=== PATIENT | female | born 1995 | race Caucasian/White ===

== ENCOUNTER 2023-12-17 14:54 | Observation (INO) | payer OTHER, SELFPAY ==
[2023-12-17] VITALS (11 sets, daily range): BP systolic 115–139; BP diastolic 65–90; PULSE 64–76; BMI 35.9
[2023-12-17 12:30] LABS: Appearance Urine Clear (Clear); Bilirubin Urine Negative (Negative); Blood Urine Negative (Negative); Color Urine Yellow (Yellow); Glucose Urine UA Negative (Negative); Ketones Urine 3+ mg/dL (Negative); Leukocyte Esterase Ur Negative LEU/UL (Negative); Nitrate Urine Negative (Negative); Protein Urine Negative (Negative); Specific Grav Ur 1.017 (1.001-1.035); pH Urine 6.5 (5.0-9.0)
[2023-12-17 12:40] LABS: Add Urine Microscopic? NO
[2023-12-17] MEDS: DEXTROSE 5%/LACTATED RINGERS 1,000 ML 999 ML (14:08)
[2023-12-17] MEDS: ONDANSETRON INJ 4 MG/2 ML VIAL IV PUSH (14:08)
--- NOTE | 2023-12-17 14:57 | LDADM ---
This patient, Kailey Webster, was admitted to Labor/Delivery/Recovery 105 on 12/17/23 at 11:15. Plans for labor, pain management and were discussed with patient. Patient/family oriented to hospital policies and general routines including ID bracelet, bed and alarms, visiting hours, pain management, procedures, bathroom and other care routines, personal items, smoking policy, room service/diet and guest tray routines, infant security routines, and visiting hours. Patient/Family are encouraged to report perceived risks to care and to ask questions if they do not understand what they are told or what they should do. See OBIX for further documentation.
--- NOTE | 2023-12-20 15:22 | PM.OBTRLD ---
OB - Triage/Final Diagnosis Visit Information Date of evaluation: 12/17/23 Reason for evaluation: threatened labor Comments/Additional reasons for admission: I have assessed the risk for this patient, Kailey Webster, and determined that she would benefit from observation care. Evaluation Laboratory results: Laboratory Tests 12/17/23 12:18 Urine Color Yellow Urine Appearance Clear Urine pH 6.5 Ur Specific [place] 1.017 Urine Protein Negative Urine Glucose (UA) Negative Urine Ketones 3+ H Ur Blood (Man) Negative Urine Nitrate Negative Urine Bilirubin Negative Urine Urobilinogen 1.0 Leukocyte Esterase Rfl Negative
== END 2023-12-17 15:30 | disposition home or self-care (01) ==
PROVIDERS: Advanced Practice Midwife; Admitting Provider Obstetrics & Gynecology; Visit Provider Obstetrics & Gynecology
DX: O47.9 False labor, unspecified (principal); Z3A.00 Weeks of gestation of pregnancy not specified
CPT/HCPCS: 81003; 96361; 96374; G0378; G0379; J2405; J7121

== ENCOUNTER 2023-12-20 10:49 | Inpatient (IN) | payer OTHER, SELFPAY ==
[2023-12-20] VITALS (122 sets, daily range): BP systolic 97–146; BP diastolic 38–97; PULSE 58–285; TEMP 36.6–38; O2SAT 76–100; BMI 35.9
--- NOTE | 2023-12-20 12:34 | P.HPUP_ITS ---
History and Physical Update Update Date/Time: 12/20/23 12:34 28-year-old prime at at 37 weeks gestation with spontaneous rupture membranes. Forebag was ruptured. 4 cm/0/80%. Reassuring status, observation History and Physical has been reviewed, including an updated exam of the pa tient. There are NO changes in the patient's condition. Risks, benefits, and alternatives have been discussed and questions answered. Patient agrees to proceed with procedure.
[2023-12-20 12:43] LABS: Basophils Percent Auto 0.2 % (0.2-1.2); Eosinophils Absolute Auto 0.1 K/mm3 (0-0.3); Eosinophils Percent Auto 1.2 % (0-4.4); Hematocrit 37.5 % (37.0-47.0); Hemoglobin 11.9 g/dL (12.0-15.0); Immature Granulocyte Absolute 0.04 K/mm3 (0.00-0.031); Immature Granulocyte Percent A 0.4 % (0-0.5); Lymphocytes Absolute Auto 1.55 K/mm3 (0.9-3.2); Lymphocytes Percent Auto 17.1 % (18.3-44.2); Mean Corpuscular HGB Conc 31.7 g/dl (32-36); Mean Corpuscular Hemoglobin 27.3 pg (26-34); Monocytes Absolute Auto 0.5 K/mm3 (0.1-0.6); Monocytes Percent Auto 5.1 % (2.6-8.5); Neutrophils Absolute Auto 6.9 K/mm3 (1.3-6.7); Platelet Count Result 209 k/mm3 (150-375); Red Blood Count 4.36 M/mm3 (4.2-5.4); Red Cell Distribution Width 12.4 % (11.5-14.5); White Blood Count 9.1 K/mm3 (4.5-10.0)
[2023-12-20] MEDS: OXYTOCIN 30 UNITS/NS 500 ML 30 UNITS/500 ML BAG 6 UNITS IV CONT (13:09)
[2023-12-20] MEDS: LACTATED RINGERS 1,000 ML 125 ML IV CONT ×3 (13:09→20:26)
[2023-12-20] MEDS: HYDROCORTISONE 1% 30 GM CREAM 1 APPLIC TOPICAL (13:14)
[2023-12-20] MEDS: ceFAZolin 2 GM/D5W 50 ML 2 GM/50 ML BAG IVPB (13:20)
[2023-12-20 16:04] LABS: Rapid Plasma Reagin Non-Reactive (NonReactive)
--- NOTE | 2023-12-20 16:56 | WPDANESEPP ---
Anes - Eval Pre Procedure Procedure: labor epidural Date/Time: 12/20/23 16:56 Pre Op Diagnosis: Leaking Patient Data Age: 28 Gender: F Height: 1.63 m Weight: 95 kg Last Vital Signs Pulse 58 L 12/20/23 16:45 BP 119/56 L 12/20/23 16:45 O2 Del Method Room Air 12/20/23 13:29 Allergies Allergy/AdvReac Type Severity Reaction Status Date / Time amoxicillin Allergy Mild Rash Verified 12/17/23 13:56 latex Allergy Rash Verified 12/17/23 13:56 Penicillins Allergy Hives Verified 12/20/23 11:39 other Allergy Rash Uncoded 12/20/23 12:08 Home Medications Medication Instructions Recorded Confirmed Type omeprazole 20 mg capsule,delayed 20 mg PO HS 12/20/23 12/20/23 History release vit no.95-ferrous 1 tablet PO DAILY 12/20/23 12/20/23 History fumarate 28 mg-folic acid 800 mcg tablet () sertraline 50 mg tablet (Zoloft) 50 mg PO HS 12/20/23 12/20/23 History Laboratory Tests 12/20/23 12:35 WBC 9.1 K/mm3 (4.5-10.0) RBC 4.36 M/mm3 (4.2-5.4) Hgb 11.9 L g/dL (12.0-15.0) Hct 37.5 % (37.0-47.0) MCV 86.0 fl (80-100) MCH 27.3 pg (26-34) MCHC 31.7 L g/dl (32-36) RDW 12.4 % (11.5-14.5) Plt Count 209 k/mm3 (150-375) MPV 13.0 H fl (7.4-10.4) Immature Gran % (Auto) 0.4 % (0-0.5) Neut % (Auto) 76.0 H % (45.5-73.1) Lymph % (Auto) 17.1 L % (18.3-44.2) [place] % (Auto) 5.1 % (2.6-8.5) Eos % (Auto) 1.2 % (0-4.4) Baso % (Auto) 0.2 % (0.2-1.2) Lymph # (Auto) 1.55 K/mm3 (0.9-3.2) [place] # (Auto) 0.5 K/mm3 (0.1-0.6) Eos # (Auto) 0.1 K/mm3 (0-0.3) Baso # (Auto) 0.0 K/mm3 (0.0-0.1) Abs Immat Gran (auto) 0.04 H K/mm3 (0.00-0.031) Absolute Neuts (auto) 6.9 H K/mm3 (1.3-6.7) Absolute Nucleated RBC 0.000 K/mm3 (0.0-0.012) Nucleated RBC % 0.0 % (0.0-0.2) RPR Non-reactive (NonReactive) Blood Type A Positive Antibody Screen Negative Patient hx anesthesia problems: none Family hx anesthesia problems: none Results Review: All pre-operative results and documents have been reviewed as part of the pre-operative evaluation. [facility] Past Medical History Medical History (Updated 12/20/23 @ 16:57 by Carol Ann Landers CRNA) GERD (gastroesophageal reflux disease) Obese PCOS (polycystic ovarian syndrome) Surgical History Surgical History H/O gastric sleeve Social History Social History Smoking status: Never smoker Substance use: never Do You Feel Safe in your Home?: No Lack of Transportation: No Lack of Food: Never True Current Housing: I Have Housing Concerned About Future Housing: No Difficulty Paying Gas/Electric Bills: No Difficulty Paying for Meds: No Currently Unemployed: No Education: Trade/Vocational Certificate Difficulty w/ Childcare or Family Care: No Spiritual care concerns: No Exam Day of Procedure 12/20/23 16:56 Patient weight: obese Heart: regular rate and rhythm Lungs: normal air movement Airway: Mallampati scale Neurological: alert and oriented
[2023-12-20] MEDS: ceFAZolin 1 GM/NS 50 ML 1 GM/50 ML BAG IVPB (21:34)
[2023-12-20] MEDS: TRANEXAMIC ACID 1,000MG/ISO100 1,000 MG/100 ML BAG 200 MG IVPB (23:45)
--- NOTE | 2023-12-20 23:45 | PM.OBPRVD ---
OB - Vaginal Delivery Note Procedure Delivery date: 12/20/23 Delivery augmentation: Pitocin Delivery monitor: External FHT and External Uterine Route of delivery: Episiotomy description: None Laceration Description: Periurethral and Perineal - 2nd Degree Delivery repair: vicryl Quantitative Blood Loss (ml): 400 Anesthesia type: Epidural Narrative: SROM at 37 wk Baby Date of : 12/20/23 Time of : 23:18 Weeks of gestation at delivery: 37 score one minute: 8 score five minutes: 9
[2023-12-20] MEDS: OXYTOCIN 30 UNITS/NS 500 ML 30 UNITS/500 ML BAG 125 UNITS IV CONT (23:51)
[2023-12-20] MEDS: miSOPROStol 200 MCG TABLET 1000 MCG RECTAL (23:51)
[2023-12-21] VITALS (16 sets, daily range): BP systolic 106–135; BP diastolic 47–98; PULSE 68–221; RESP 16–18; TEMP 36.8–37.5; O2SAT 98–100
--- NOTE | 2023-12-21 00:08 | P.PNOB_ITS ---
OB - PN: Subj Subjective Date/time seen: 12/21/23 00:08 Narrative: Return to the room for [id number] blood flow. This from the uterus. Alejandrina was inserted. 120 cc were placed in this flatus and balloon of normal saline and was placed under 80 mmHg suction. Minimal to moderate blood flow through the Mitzi. There was concern for continued low of blood flow. OB - PN: Obj Data Labs 12/20/23 12:35 Labs: Laboratory Results - last 24 hr 12/20/23 12:35 WBC 9.1 RBC 4.36 Hgb 11.9 L Hct 37.5 MCV 86.0 MCH 27.3 MCHC 31.7 L RDW 12.4 Plt Count 209 MPV 13.0 H Immature Gran % (Auto) 0.4 Neut % (Auto) 76.0 H Lymph % (Auto) 17.1 L [place] % (Auto) 5.1 Eos % (Auto) 1.2 Baso % (Auto) 0.2 Lymph # (Auto) 1.55 [place] # (Auto) 0.5 Eos # (Auto) 0.1 Baso # (Auto) 0.0 Abs Immat Gran (auto) 0.04 H Absolute Neuts (auto) 6.9 H Absolute Nucleated RBC 0.000 Nucleated RBC % 0.0 RPR Non-reactive Blood Type A Positive Antibody Screen Negative OB - PN A/P Time Spent With Patient Time: Total time spent is greater than 50% in coordination of care (as documented) at patient's floor/unit and/or counseling patient:
[2023-12-21] MEDS: IBUPROFEN 600 MG TABLET PO ×3 (02:15→16:45)
[2023-12-21] MEDS: WITCH HAZEL 40 PADS 1 PAD TOPICAL (03:01)
[2023-12-21] MEDS: BENZOCAINE 20% AER SPR (*SP) 56 GM CAN 1 SPRAY TOPICAL (03:01)
[2023-12-21 05:49] LABS: Hematocrit 26.6 % (37.0-47.0); Hemoglobin 8.4 g/dL (12.0-15.0)
--- NOTE | 2023-12-21 07:19 | PM.OBPNVD ---
OB - PN: Subj Subjective Date/time seen: 12/21/23 07:19 Interval history: pp day 1 doing well SAMINA in place OB - PN: Obj Data Labs 12/21/23 05:38 Labs: Laboratory Results - last 24 hr 12/20/23 12/21/23 12:35 05:38 WBC 9.1 RBC 4.36 Hgb 11.9 L 8.4 L D Hct 37.5 26.6 L MCV 86.0 MCH 27.3 MCHC 31.7 L RDW 12.4 Plt Count 209 MPV 13.0 H Immature Gran % (Auto) 0.4 Neut % (Auto) 76.0 H Lymph % (Auto) 17.1 L [place] % (Auto) 5.1 Eos % (Auto) 1.2 Baso % (Auto) 0.2 Lymph # (Auto) 1.55 [place] # (Auto) 0.5 Eos # (Auto) 0.1 Baso # (Auto) 0.0 Abs Immat Gran (auto) 0.04 H Absolute Neuts (auto) 6.9 H Absolute Nucleated RBC 0.000 Nucleated RBC % 0.0 RPR Non-reactive Blood Type A Positive Antibody Screen Negative OB - PN A/P Plan day: 1 Comments: plan iron infusion SAMINA to be removed Time Spent With Patient Time: Total time spent is greater than 50% in coordination of care (as documented) at patient's floor/unit and/or counseling patient: Review of Systems Review of Systems: All systems reviewed & are unremarkable except as noted in HPI and below Exam Const: General: cooperative and healthy appearing Resp: Effort & Inspection: normal respiratory effort Cardio: Rate: regular rate : Other: SAMINA cuff deflated Skin: General skin exam: normal color Extrem: Right lower extremity: normal to inspection Left lower extremity: normal to inspection
--- NOTE | 2023-12-21 07:42 | PM.OBPNVD ---
OB - PN: Subj Subjective Date/time seen: 12/21/23 07:42 Interval history: SAMINA removed w/o difficulty fundus firm, minimal bleeding OB - PN: Obj Data Labs 12/21/23 05:38 Labs: Laboratory Results - last 24 hr 12/20/23 12/21/23 12:35 05:38 WBC 9.1 RBC 4.36 Hgb 11.9 L 8.4 L D Hct 37.5 26.6 L MCV 86.0 MCH 27.3 MCHC 31.7 L RDW 12.4 Plt Count 209 MPV 13.0 H Immature Gran % (Auto) 0.4 Neut % (Auto) 76.0 H Lymph % (Auto) 17.1 L [place] % (Auto) 5.1 Eos % (Auto) 1.2 Baso % (Auto) 0.2 Lymph # (Auto) 1.55 [place] # (Auto) 0.5 Eos # (Auto) 0.1 Baso # (Auto) 0.0 Abs Immat Gran (auto) 0.04 H Absolute Neuts (auto) 6.9 H Absolute Nucleated RBC 0.000 Nucleated RBC % 0.0 RPR Non-reactive Blood Type A Positive Antibody Screen Negative OB - PN A/P Time Spent With Patient Time: Total time spent is greater than 50% in coordination of care (as documented) at patient's floor/unit and/or counseling patient:
[2023-12-21] MEDS: IRON SUCROSE COMPLEX 400 MG in SODIUM CHLORIDE 0.9% IV 250 ML 108 MG IVPB (08:07)
[2023-12-21] MEDS: DOCUSATE SODIUM 100 MG CAPSULE PO ×2 (08:08→16:45)
[2023-12-21] MEDS: POLYSACCHARIDE IRON COMPLEX 150 MG CAPSULE PO ×2 (08:08→16:45)
[2023-12-21] MEDS: MULTIVIT/MIN/PREN/FOL AC/IRON TABLET 1 TAB PO (08:08)
--- NOTE | 2023-12-21 08:48 | WPDANLDPN2 ---
Anes-Prog Note L&D Date/Time: 12/21/23 08:48 Comfortable throughout: labor and delivery Neuraxial method: epidural Epidural/Spinal procedure site: clean & non-tender Neuro status: Neuro function grossly intact. Cardiovascular status: normal Respiratory status: normal Airway patency: baseline Mental status: baseline Post-Op hydration status: normal Vital Signs: Last Vital Signs Temp 37.5 C 12/21/23 03:57 Pulse 85 12/21/23 03:57 Resp 18 12/21/23 03:57 BP 131/68 12/21/23 03:57 Pulse Ox 100 12/21/23 03:57 O2 Del Method Room Air 12/21/23 03:57 Pain score (VAS): 2/10 I/O: Intake & Output 12/20/23 12/21/23 12/21/23 23:59 07:59 15:59 Intake Total 960.4 1700 Output Total 400 445 Balance 560.4 1255 Post-procedural complaints: none Patient feedback: Patient satisfied with anesthetic care.
[2023-12-21] MEDS: ACETAMINOPHEN 325 MG TABLET 650 MG PO (13:06)
--- NOTE | 2023-12-21 13:38 | PC.NURSE ---
[id number] Introductions were made to father of baby since mother is in the restroom. Demonstrated to father of baby how to stimulate, change a diaper, and hold upright to prepare infant for mother to breastfeed as it has been 3 hours since the start of the last breastfeed. Resources provided for inpatient and outpatient services with the feeding sheet, mom/baby guide and name written on the communication board. Father voiced understanding of information, demonstrated understanding and will call when infant is showing feeding cues. Discussed responsive feeding using the signs of hunger hand out. [id number] Upon entering the room introductions made again and mother has latched to her left breast holding a nipple shield in place. Reviewed good handwashing, cleaning the nipple shield and the appropriate way to apply and use as a tool. Discussed with mom the nipple shield precautions, possible complications associated with the risks and benefits, practicing appropriate placement with a nipple shield, then without and how to protect the milk supply and production. Nipple shield was removed and infant latched to the left breast optimally. Reviewed positioning and ear, shoulder, hip alignment, supporting the breast to facilitate a deep latch, asymmetrical latch (off-center), leading with the chin with a big, open, wide gape and body close to mother. Education given to the mother of how to visualize the suckling (with good rocking jaw motion), swallows (dropping of the lower jaw) and how to listen for drinking at the breast (the ka sound) and infant demonstrated frequent intermittent swallows that are appropriate at this age after . was able to maintain latch without pain to mother protecting the nipple with optimal positioning, latching without the nipple shield. Reviewed comfort measures of healing with a warm, wet washcloth to rinse breast, then leave open to air-dry, good handwashing when or touching the breast/nipples to prevent infection. Mother voiced understanding of skin to skin, stimulating with massage touch, responsive feedings, hand expressed colostrum, talking to infant to encourage if it has been 2 -2.5 hours since the start of the last , to call if does not latch, or if there is discomfort with . Resources used for education were facilitated with the visual educational handouts/ tool/mom and baby guide. Inpatient/outpatient resources provided with feeding sheet, name written on the communication board, and the mom/baby guide. Parents voiced understanding of information, demonstrated learning and will call if there is a request for assistance. Reported to the Primary RN.
--- NOTE | 2023-12-21 16:46 | PC.NURSE ---
[id number] Consulted with patient to assess needs related to . Encouraged understanding the benefits of skin to skin, responding to feeding cues, frequencies of feeding 8-12 times in 24 hours (approximately 2-3 hours) so, encouraged waking to encourage . Reviewed positioning and alignment, supporting breast, off-centered (asymmetrical latch) and leading with the chin with big, open, wide gape. Infant latched optimally to the right breast in football/cross cradle position and doesn't maintain. EBM is copious on the right breast. Infant latched effectively to the left breast using cross cradle. Infant demonstrated swallowing with good rocking jaw motion and dropping of the lower jaw with the ka sound. The infant was able to maintain latch without discomfort to mother. Nipple care reviewed with optimal latch with the sandwich or teacup hold, good positioning and using clean hands when touching her breast. Resources used to facilitate learning were used from the visual handouts/ tool/mom and baby guide. Mother voiced understanding of the education shared, to call for assistance if the infant does not latch or if there is discomfort with . Reported to the Primary RN.
[2023-12-21] MEDS: PANTOPRAZOLE 40 MG TABLET PO (20:39)
[2023-12-21] MEDS: SERTRALINE HCL 50 MG TABLET PO (20:39)
[2023-12-22 00:30] VITALS: BP 122/76; PULSE 88; RESP 16; TEMP 36.8
[2023-12-22 07:35] VITALS: BP 119/84; PULSE 72; RESP 16; TEMP 36.9; O2SAT 100
[2023-12-22 08:00] VITALS: PULSE 72; RESP 16; O2SAT 100
[2023-12-22] MEDS: POLYSACCHARIDE IRON COMPLEX 150 MG CAPSULE PO ×2 (08:09→16:44)
[2023-12-22] MEDS: MULTIVIT/MIN/PREN/FOL AC/IRON TABLET 1 TAB PO (08:09)
[2023-12-22] MEDS: DOCUSATE SODIUM 100 MG CAPSULE PO ×2 (08:10→16:44)
[2023-12-22] MEDS: TETANUS,DIPHTHERIA,AC PERTUSSIS ADULT (0.5 ML) BOOSTRIX IM (08:43)
--- NOTE | 2023-12-22 09:37 | PM.OBPNVD ---
OB - PN: Subj Subjective Date/time seen: 12/22/23 09:37 Interval history: SAMINA removed w/o difficulty fundus firm, minimal bleeding Patient comments: no complaints, pain well controlled, incisional pain, tolerating diet and flatus present OB - PN: Obj Data Labs 12/21/23 05:38 OB - PN A/P Plan day: 1 Plan: routine care Comments: No problems, routine care Time Spent With Patient Time: Total time spent is greater than 50% in coordination of care (as documented) at patient's floor/unit and/or counseling patient: Exam Const: General: comfortable, no acute distress and alert Resp: Effort & Inspection: normal respiratory effort Auscultation: no crackles, no rales and no rhonchi Cardio: Rate: regular rate Heart sounds: no click, no murmurs and no rubs GI: Inspection: non-distended GI Palp: No Tenderness to palpation present (GI) Auscultation: normal bowel sounds Other: Incision - CDI Extrem: General: normal to inspection, no pedal edema and no calf tenderness
--- NOTE | 2023-12-22 09:38 | PM.OBDSVD ---
DS: Admitting Diagnosis Discharge Date December 22, 2019 Admitting Diagnosis term DS: Discharge Diagnosis Discharge Diagnosis (1) Term delivered: Code(s): O80 - Encounter for full-term uncomplicated delivery Status: Acute OB - DS: Summary OB Procedures : None OB Procedures Intrapartum: Spontaneous Vag Delivery OB Procedures: : None Peripartum Data Laceration Description: Periurethral and Perineal - 2nd Degree Episiotomy description: None Time Spent with Patient Time attestation: Total time spent providing and/or coordinating discharge services: DS: Data Data Completed and Pending Pending studies at discharge: Pending at discharge 12/20/23 23:21 Surgical [PTH] Routine Discharge Plan Discharge Discharging Clinician: Rhea Hurtado Patient Disposition: Home, Self-Care Activity: pelvic rest Diet: regular Patient Instructions: Antibiotic Form Stand Alone Forms: General Discharge Information Follow-up/Referrals: Rhea Hurtado MD [Physician] - Discharge Medications: Continued omeprazole 20 mg Capsule,Delayed Release(Dr/Ec) 20 mg PO HS sertraline [Zoloft] 50 mg Tablet 50 mg PO HS PNV cmb#95-ferrous fumarate-FA [] 28 mg iron- 800 mcg Tablet 1 tablet PO DAILY Date of admission: 12/20/23 10:49 Primary Care Provider: UNKNOWN,DOCTOR Admitting Provider: Rhea Hurtado Attending physician on admission: Rhea Hurtado Condition: Stable
--- NOTE | 2023-12-22 16:45 | PC.NURSE ---
Patient viewed the discharge video Mother & Baby Care, The First Two Weeks . Patient was given the opportunity and encouraged to ask questions. Patient verbalized understanding of information shared and has been given the mother/baby guide for home reference.
--- NOTE | 2023-12-22 16:56 | PC.NURSE ---
[id number] Purposefully rounded to assess for needs. Visitor is holding infant while is demonstrating early feeding cues. Reviewed watching for early feeding cues, responding to feeding cues using hand expression and [id number] to encourage . Attempts were made to latch . Infant is sleepy and reluctant and will not latch with or without the nipple shield. Parents are instructed to work with their and call if doesn't latch, pain with latching, difficulty waking or any questions or assistance needed. Parents voiced understanding. [id number] Consult requested. Parents shared that will not wake up to breastfeed and has not breastfed since 729. Attempts were made to latch unsuccessfully. Infant is sleepy and reluctant. holds tongue in the middle of the mouth or to the roof of the mouth and will not latch which is a new habit different than yesterdays latch with swallowing. Mother shared there was a pacifier introduced last night. We discussed the possible risks and benefits of early pacifier use. Tongue exercises were shared as we discussed late infant behaviors and concerns with weight loss and watching for increased jaundice. With infant not latching, weight loss at almost 7% in less than 48 hours parents decided to pump and supplement until full volume milk. Reviewed protecting the milk supply with frequent removal of milk. Parents voiced understanding of the information. [id number] Breast pump provided due to ineffective . Instructions given on cleaning, care, usage, that there should be no pain, pumping schedule for milk production, collection, and storage of human milk. Patient was assessed for correct placement, flange size, to pump for comfort and nipple stretching/stimulation for adequate milk production every 3 hours (8 times in 24 hours) 1-2 times at night. Parents are encouraged to record the pumping schedule on the feeding sheet.?Mother voiced understanding of the education shared along with mom/baby guide and the pump measurement, flange fit handout for additional resource information. Reported to the Primary RN. [id number] Assisted parents with spoon feeding infant the 1/4 tsp of colostrum with lapping up the milk. Demonstrated paced bottle feeding formula bottle to their infant. Feeding plan was initiated as described as the plan. Questions were answered and parents were encouraged to protect mothers milk supply, expectation in the days ahead, feeding their is most important. Reinforced understanding of milk production, transition of milk, signs of adequate intake, transition of stool, prevention/relief of engorgement, plugged ducts, mastitis, responsive watching for feeding cues, the different methods of stimulating to breastfeed 1-3 hours after the start of the last feeding, community resources, and when to call a provider using the resource of the feeding sheet along with the mom and baby guide. Parents voiced understanding of the information shared, is confident to continue feeding their at home, when to call for services or MD, denies any additional assistance or education at this time. Reported to the Primary RN.
[2023-12-24 11:03] VITALS: BP 119/69; PULSE 70; RESP 20; TEMP 36.4; O2SAT 100
== END 2023-12-22 19:37 | disposition home or self-care (01) | DRG 807 ==
LOC: ANHLDR 11:27 → ANHOB2 12-21 03:12
PROVIDERS: Admitting Provider Obstetrics & Gynecology; Visit Provider Obstetrics & Gynecology
DX: O42.92 Full-term premature rupture of membranes, unspecified as to length of time between rupture and onset of labor (principal); Z37.0 Single live birth; O70.1 Second degree perineal laceration during delivery; Z3A.37 37 weeks gestation of pregnancy
CPT/HCPCS: 36415; 84112; 85014; 85018; 85025; 86592; 86850; 86900; 86901; 88307; 90715; A9270; J0690; J1756; J2590; J2795; J7050; J7120

== ENCOUNTER 2024-10-20 10:49 | Observation (INO) | payer OTHER, SELFPAY ==
[2024-10-20] VITALS (17 sets, daily range): BP systolic 109–133; BP diastolic 56–82; PULSE 64–95; O2SAT 100; BMI 36.4
--- NOTE | ~2024-10-20 | US_ITS ---
EXAMINATION: US OB limited DATE: 10/20/2024 14:19 INDICATION: Abdominal pain at the beginning of the third trimester of TECHNIQUE: Real-time ultrasound of the pelvis was performed. The interpreting radiologist was not pre sent for the study. COMPARISON: None. FINDINGS: There is a single living fetus in vertex presentation. The placenta is anterior fundal and not low-l sara. heart rate is 143 beats per minute (bpm). The amniotic fluid volume is subjectively javad l. IMPRESSION: 1. Single living fetus in vertex presentation with heart rate of 143 bpm. 2. Normal appearing anterior fundal placenta. Reviewed, dictated and finalized at location A. RTMENTAL SECRETARY IMPRESSION: 1. Single living fetus in vertex presentation with heart rate of 143 bpm . 2. Normal appearing anterior fundal placenta.
--- NOTE | 2024-10-20 11:17 | OBADM ---
This patient, Kailey Webster, admitted to the OB room OB Post 115 for observation. Patient/family oriented to hospital policies and general routines including ID bracelet, bed and alarms, visiting hours, pain management, procedures, bathroom and other care routines, personal items, smoking policy, room service/diet, and visiting hours. Patient/Family are encouraged to report perceived risks to care and to ask questions if they do not understand what they are told or what they should do.
--- OUTSIDE RECORDS SUMMARY | 2024-10-20 11:30 | XMS_ITS | Clinical Summary ---
Author Organization [facility] Address [address] [place] [address] Care Team Providers Care Bulk Sausage Casing Tier Off Name Role Phone Kristofer Mary Jane GRANT Primary Care Provider [phone] Claudia Green MD Unavailable Allergies Active Allergy Reactions Criticality Noted Date Comments Amoxicillin Hives 09/04/2020 Furosemide Unknown 09/29/2022 Latex Rash Low 09/05/2020 Penicillins Hives Low 09/05/2020 Medications famotidine 20 MG tablet Take 20 mg by mouth every 12 (twelve) hours. 0 Active Ferrous Sulfate (IRON) 325 (65 Fe) MG tablet TAKE 1 TABLET BY MOUTH EVERY OTHER DAY FOR 30 DAYS 0 Active vitamin D2, ergocalciferol, 94331 UNITS capsule Take 50,000 Units by mouth every 7 days. Active LORazepam 0.5 MG tablet lorazepam 0.5 mg tablet TAKE 1 TABLET BY MOUTH ONCE DAILY AT NIGHT AT BEDTIME FOR 30 DAYS 1 Active B Complex-Folic Acid (B COMPLEX-VITAMIN B12 OR) B Complex-Vitamin B12 Active sertraline (ZOLOFT) 50 MG tablet Take 50 mg by mouth daily. 2 Active doxylamine-pyri doxine EC (DICLEGIS) 10-10 MG tablet Take two tablets by mouth at bedtime on day 1 and 2. If symptoms persist, take 1 tablet by mouth in morning and 2 tablets by mouth at bedtime on day 3. If symptoms persist, take 1 tablet by mouth in morning, 1 tablet by mouth mid-afternoon, and 2 tablets by mouth at bedtime on day 4. Maximum dose: doxylamine 40 mg/pyridoxine 40 mg (4 tablets) per day. 30 tablet 4 Active Active Problems Problem Noted Date Diagnosed Date Gastroesophageal reflux disease 08/14/2021 Overview (08/14/2021): per consult visit 07/17/[address] Rodrigo Juarez. Dr Rodrigo Pickard has scheduled a Colonoscopy and EGD for 09/10/2020 at [facility] [place] Ventricular ectopy 10/24/2020 Atypical chest pain 09/06/2020 Palpitations 09/06/2020 Iron deficiency 10/12/2019 Anxiety 05/03/2018 Depressive disorder 05/03/2018 Hyperprolactinemia ([facility]) 05/15/2015 Overview (08/14/2021): Date Onset: 05/15/2015 Vitamin D deficiency 05/15/2015 Overview (08/14/2021): Date Onset: 05/15/2015 Fatigue 05/01/2015 Overview (08/14/2021): Date Onset: 05/01/2015 Irregular menses 05/01/2015 Overview (08/14/2021): Date Onset: 05/01/2015 Metabolic syndrome 01/30/2015 Overview (08/14/2021): Date Onset: 05/01/2015 Date Onset: 01/30/2015 Polycystic ovaries 01/30/2015 Overview (08/14/2021): Date Onset: 01/30/2015 Amenorrhea 01/15/2015 Overview (08/14/2021): Date Onset: 01/15/2015 Hirsutism 01/15/2015 Overview (08/14/2021): Date Onset: 01/15/2015 Pelvic pain 01/15/2015 Overview (08/14/2021): Date Onset: 01/15/2015 Morbid obesity ([facility]) 01/02/2015 Overview (08/14/2021): Date Onset: 01/02/2015 Resolved Problems Problem Noted Date Diagnosed Date Resolved Date Pre-operative cardiovascular examination 08/14/2021 08/18/2021 Family History Medical History Relation Comments Diabetes Maternal Grandfather Cancer Maternal Grandmother Breast Cancer Mother a-fib Mother Relation Status Comments Maternal Grandfather Maternal Grandmother Mother Social History Tobacco Use Types Packs/Day Years Used Date Smoking Tobacco: Never Smokeless Tobacco: Never Alcohol Use Standard Drinks/Week Comments Yes 0 (1 standard drink = 0.6 oz pur e alcohol) 1-2 times per year Comments No Sex and Gender Information Value Date Recorded Sex Assigned at Not on file Legal Sex Female 6:24 PM LIVE OUT NANNY Gender Identity Female 09/28/2022 2:41 PM LIVE OUT NANNY Sexual Orientation Not on file 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 Not on file Not on file Not on file Last Filed Vital Signs Vital Sign Reading Time Taken Comments Blood Pressure 115/56 07/19/2024 10:30 AM LIVE OUT NANNY Pulse 78 07/19/2024 10:30 AM LIVE OUT NANNY Temperature 36.8 C (98.2 F) 07/19/2024 7:50 AM LIVE OUT NANNY Respiratory Rate 18 07/19/2024 7:50 AM LIVE OUT NANNY Oxygen Saturation 100% 07/19/2024 10:30 AM LIVE OUT NANNY Inhaled Oxygen Concentration - - Weight 93.4 kg (206 lb) 07/19/2024 7:50 AM LIVE OUT NANNY Height 162.6 cm (5' 4 ) 07/19/2024 7:50 AM LIVE OUT NANNY Body Mass Index 35.36 07/19/2024 7:50 AM LIVE OUT NANNY Plan of Treatment Health Maintenance Due Date Last Done Comments Annual Physical 1998 COVID-19 Vaccine ( season) 2024 09/11/2021, 08/12/2021 Cervical Cancer Screening Pap Smear (Age 21 to 29) Every 3 Years 06/29/2027 06/29/2024, 04/20/2022 Cervical Cancer Screening 06/29/2027 DTaP, Tdap and Td Vaccines (4 - Td or Tdap) 12/21/2033 12/22/2023, 12/28/2008, 04/02/2000, Additional history exists Hepatitis B Vaccines Completed 07/18/2023, 01/06/2023, 11/06/2022, Additional history exists Influenza Adult Completed 05/30/2024, 05/30, 06/04/2022, Additional history exists Hepatitis C Completed 06/29/2024, 06/29/2024 HPV Vaccines Aged Out No longer eligi ble based on patient's age to complete this topic Meningococcal B Vaccine Aged Out No l onger eligible based on patient's age to complete this topic Meningococcal Vaccine Aged Out No dario maida eligible based on patient's age to complete this topic Pneumococcal Vaccine: Pediatrics (0 to 5 Years) and At-Risk Patients (6 to 64 Years) Aged Out No longer eligible based on patient's age to complete this topic RSV Immunizations Under 20 Months Aged Out No longer eligible based on patient's age to complete this topic Insurance [facility] Care Teams Bulk Sausage Casing Tier Off Relationship Specialty Start Date End Date Mary Jane Miner NP [address] [place] [address] PCP - General NURSE PRACTITIONER 09/04/20 Claudia Green MD [address] [place] [address] Consulting Physician CARDIOVASCULAR DISEASE 01/15/21
--- OUTSIDE RECORDS SUMMARY | 2024-10-20 11:30 | XMS_ITS | Patient Health Summary ---
Author Organization [email or web address] Address [address] [place] [address] Care Team Providers Care Daycare Provider Name Role Phone Namita Saini APRN-LANDSCAPING CREW LEADER Primary Care Provide r Note from [facility],non-owned Affiliates and Associated Physician Practices is amultiple site organization consisting of ambulatory clinics and hospital sitesin [place], [place], [place] and [place]. This disclosure is being madepursuant to the Care Everywhere program and may not contain all information available regarding this patient. Last updated 18.[email or web address] Allergies * Amoxicillin(Rash) -Medium Criticality * Latex(Unknown) * Pineapple(Unknown) * Metoclopramide(Other) Medications * Be aware that medications may not be up to date on this document. Alwaysverify current medications with the patient. * Vit-DSS-Fe Fum-FA ( vitamin with iron) tablet Take 1 (one) tablet by mouth once daily Reasons: * ondansetron (Zofran) 4 MG tablet Take 1 (one) tablet by mouth every 6 hours as needed for Nausea/Vomiting Reasons: Nausea and Vomiting in * sertraline (Zoloft) 50 MG tablet Take 1 (one) tablet by mouth once daily Reasons: Generalized Anxiety Disorder * omeprazole (PriLOSEC) 20 MG capsule Take 1 (one) capsule by mouth daily before breakfast Reasons: Heartburn Active Problems No known active problems Social History Tobacco Use Types Packs/Day Years Used Date Smoking Tobacco: Never Smokeless Tobacco: Never Tobacco Cessation:Counseling Given: Not Answered Estimated Date of Delivery Comme nts Yes 01/11/2025 Based on Patient Reported Sex and Gender Information Value Date Recorded Sex Assigned at Not on file Gender Identity Not on file Sexual Orientation Not on file Last Filed Vital Signs Vital Sign Reading Time Taken Comments Blood Pressure 113/75 09/12/2024 1:53 PM HOUSE CARPENTER HELPER Pulse 85 09/12/2024 1:53 PM HOUSE CARPENTER HELPER Temperature - - Respiratory Rate - - Oxygen Saturation - - Inhaled Oxygen Concentration - - Weight 93.4 kg (206 lb) 09/12/2024 1:53 PM HOUSE CARPENTER HELPER Height 157.5 cm (5' 2 ) 09/12/2024 1:53 PM HOUSE CARPENTER HELPER Body Mass Index 37.68 09/12/2024 1:53 PM HOUSE CARPENTER HELPER Procedures * SONOGRAM - COMPLETE(Performed 10/13/2024) Performed for Seventh (HCC), Supervision of high-risk of young multigravida (HCC), Amniotic band in second trimester, single or unspecified fetus (HCC), Uterine synechiae * SONOGRAM - COMPLETE(Performed 09/12/2024) Performed for Seventh (HCC), Supervision of high-risk of young multigravida (HCC), Amniotic band in second trimester, single or unspecified fetus (HCC), Uterine synechiae Results * SONOGRAM - COMPLETE (10/13/2024 12:49 PM HOUSE CARPENTER HELPER) Only the most recent of2 resultswithin the time period is included. Linked Results Indication ======== Suspected synechiae vs Amniotic band on outside ultrasound IVF (transfer on 04/26) Short interpregnancy interval Class II obesity History ====== Past surgical history Gastric sleeve, 2021 OB History 7. Para 1 1. miscarriage. Details: G1-G5 2. live 2023. Gest. age 37 w + 2 d. Weight 2,902 g. Sex of child: female. Details: Vaginal delivery Maternal Assessment Physical Exam Height 157 cm, 5 ft 2 in. Weight 96 kg, 212 lb. Initial weight 94 kg, 207 lb. BMI 38.78 kg/m . Initial BMI 37.86 kg/m . Weight gain 2 kg, 5 lb Method ====== Transabdominal ultrasound. View: Suboptimal view: limited by position ========= Null . Number of fetuses: 1 Dating ====== Date Details Gest. age AURY Stated AURY 27 w + 1 d 01/11/2025 U/S 10/13/2024 based upon AC, BPD, Femur, HC 27 w + 1 d 01/11/2025 Assigned dating based on stated AURY, selected on 09/12/2024 27 w + 1 d 01/11/2025 General Evaluation Cardiac activity present. FHR 150 bpm. Presentation: breech Placenta: Placental site: anterior Umbilical cord: Cord vessels: 3 vessel cord. Insertion site: marginal/velament ous insertion Amniotic fluid: Amount of AF: normal. MVP 4.3 cm Biometry BPD 66.4 mm 26w 5d 26% Hadlock HC 256.7 mm 27w 6d 46% Hadlock AC 240.6 mm 28w 2d 78% Hadlock Femur 47.3 mm 25w 6d 7% Hadlock Humerus 43.5 mm 26w 0d 13% Kelsey HC / AC 1.07 Weight Calculation: EFW 1,074 g 49% Hadlock EFW (lb,oz) 2 lb 6 oz EFW by Hadlock (HC-AC-FL) Growth Overview Exam date GA BPD (mm) HC (mm) AC (mm) FL (mm) HL (mm) EFW (g) 09/12/2024 22w 5d 50.7 7% 196.2 9% 190.5 76% 38.4 26% 33.4 10% 547 52% 10/13/2024 27w 1d 66.4 26% 256.7 46% 240.6 78% 47.3 7% 43.5 13% 1074 49% Anatomy The following structures appear abnormal: Abdomen Kidneys: Right renal pelvis dilation measures 5.5 mm Left renal pelvis dilation measures 4.4 mm. The following structures appear normal: Heart / Thorax [id number] view. Abdomen Stomach. Bladder. Genitals. Spine Cervical spine. Thoracic spine. Extremities / Skeleton Right arm. The following structures could not be adequately visualized: Spine Lumbar spine. Sacral spine. The following structures were documented previously: Head / Neck Cranium. Lateral ventricles. Choroid plexus. Midline falx. Cavum septi pellucidi. Cerebellum. Cisterna magna. Thalami. Nuchal fold. Face Lips. Profile. Nose. Nasal bone. Orbits. Heart / Thorax 4-chamber view. RVOT view. LVOT view. 3-vessel view. Situs. Aortic arch view. Bicaval view. Ductal arch view. Great vessels. Right lung. Left lung. Diaphragm. Abdomen Cord insertion. Bowel. Extremities / Skeleton Hands. Left arm. Legs. Feet. sex: female. Impression ========= 1) Null gestation, 27w1d 2) Overall, biometry is consistent with appropriate growth 3) The amniotic fluid volume is within normal limits 4) There is grade A1 (4.4-5.5 mm) bilateral urinary tract dilation 5) No other abnormalities have been detected on anatomic survey 6) Imaging of the lumbosacral spine was again suboptimal, secondary to positioning 7) A marginal placental cord insertion was again identified 8) Neither a uterine synechiae nor amniotic band was detected Comment ======== Ultrasound does not allow detection of all structural or genetic abnormalities. Urinary tract dilation (UTD) is a common finding. In ~80% of cases, grade A1 (4-7 mm) UTD discovered between 16 and 27 weeks will resolve over the course of the but follow-up is important secondary to possible vesicoureteral reflux or ureteral obstruction that would alter management. There is a weak association (positive likelihood ratio ~1.5) between UTD and trisomy 21. Follow-up ======== Follow-up ultrasound in ~4 weeks to complete spine imaging and reevaluate growth and kidneys Coding ====== Procedures [id number]: US Preg Uterus Follow Up [employer] PACS Anatomical Region Laterality Modality Other 10/13/2024 12:4 9 PM HOUSE CARPENTER HELPER R Panchito Hurtado MD [facility] ORDERABLES Care Teams Daycare Provider Relationship Specialty Start Date End Date Namita Saini, ENGINE HOSTLER-LANDSCAPING CREW LEADER [address] [place] [phone] PCP - General Nurse Practitioner 03/07/20
--- OUTSIDE RECORDS SUMMARY | 2024-10-20 11:30 | XMS_ITS | Encounter Summary ---
Author Organization [facility] Address [facility] [place] [address] Care Team Providers Care Hvac Estimator Name Role Phone Guille Ball MD Unavailable Unavailable Mary Jane Miner COVERSTITCH MACHINE OPERATOR Primary Care Provider [phone] Claudia Green MD Unavailable Encounter Details Date Type Department Care Team (Late st Contact Info) Description 02/04/[address]version [address] [place] [address] , Generic ConversionMD Social History Tobacco Use Types Packs/Day Years Used Date Smoking Tobacco: Never Assessed Comments Unknown Sex and Gender Information Value Date Recorded Sex Assigned at Not on file Legal Sex Female 6:24 PM AUTO REPAIR TECHNICIAN Gender Identity Female 09/28/2022 2:41 PM AUTO REPAIR TECHNICIAN Sexual Orientation Not on file documented as of this encounter Plan of Treatment Not on file documented as of this encounter Visit Diagnoses Not on filedocumented in this encounter Care Teams Hvac Estimator Relationship Specialty Start Date End Date Mary Jane Miner NP [address] [place] [address] PCP - General NURSE PRACTITIONER 09/04/20 Guille Ball MD Consulting Physician INTERVENTIONAL CARDIOLOGY 09/04/20 01/14/21 Claudia Green MD [address] [place] [address] Consulting Physician CARDIOVASCULAR DISEASE 01/15/21 documented as of this encounter
--- OUTSIDE RECORDS SUMMARY | 2024-10-20 11:30 | XMS_ITS | Clinical Summary ---
Author Organization [facility] Address [address] [place] [address] Care Team Providers Care Gluer And Wedger Name Role Phone Namita Saini HAND OR MACHINE PASTER-CORRECTIONAL PROBATION OFFICER Primary Care Provide r Source Comments [facility],non-owned Affiliates and Associated Physician Practices is amultiple site organization consisting of ambulatory clinics and hospital sitesin [place], [place], [place] and [place]. This disclosure is being madepursuant to the Care Everywhere program and may not contain all information available regarding this patient. Last updated 18.[facility] Allergies Active Allergy Reactions Criticality Noted Date Comments Amoxicillin Rash Medium 09/11/2024 Latex Unknown 09/11/2024 Pineapple Unknown 09/11/2024 Metoclopramide Other 09/11/2024 [place] drugged when taking [facility] Medications * Be aware that medications may not be up to date on this document. Alwaysverify current medications with the patient. Medication Sig Dispensed Refills Start Date End Date Status Vit-DSS-Fe Fum-FA ( vitamin with iron) tabletIndications:Pr egnancy Take 1 (one) tablet by mouth once daily Reasons: Active ondansetron (Zofran) 4 MG tabletIndications:Na usea and/or Vomiting in Take 1 (one) tablet by mouth every 6 hours as needed for Nausea/Vomiting Reasons: Nausea and Vomiting in Active sertraline (Zoloft) 50 MG tabletIndications:Ge neralized Anxiety Disorder Take 1 (one) tablet by mouth once daily Reasons: Generalized Anxiety Disorder Active omeprazole (PriLOSEC) 20 MG capsuleIndications:H eartburn Take 1 (one) capsule by mouth daily before breakfast Reasons: Heartburn Active Active Problems Estimated Date of Delivery Comme nts Yes 01/11/2025 Based on Patient Reported No known active problems Encounters Date Type Department Care Team Description 10/13/2024 12:47 PM MOTOR TRANSPORT INSPECTOR - 10/13/2024 11:59 PM MOTOR TRANSPORT INSPECTOR Hospital Encounter [facility] [address] [place] [phone] Ginny Katz MD Discharge Disposition: Home or Self Care 09/12/2024 1:41 PM MOTOR TRANSPORT INSPECTOR - 09/12/2024 11:59 PM MOTOR TRANSPORT INSPECTOR Hospital Encounter [facility] [address] [place] [phone] Ruth Rodrigues MD Discharge Disposition: Home or Self Care 09/12/2024 1:36 PM MOTOR TRANSPORT INSPECTOR - 09/12/2024 1:40 PM MOTOR TRANSPORT INSPECTOR Hospital Encounter [facility] [address] [place] [phone] Ruth Rodrigues MD Discharge Disposition: Home or Self Care from Last 3 Months Social History Tobacco Use Types Packs/Day Years [...] Comments Blood Pressure 113/75 09/12/2024 1:53 PM MOTOR TRANSPORT INSPECTOR Pulse 85 09/12/2024 1:53 PM MOTOR TRANSPORT INSPECTOR Temperature - - Respiratory Rate - - Oxygen Saturation - - Inhaled Oxygen Concentration - - Weight 93.4 kg (206 lb) 09/12/2024 1:53 PM MOTOR TRANSPORT INSPECTOR Height 157.5 cm (5' 2 ) 09/12/2024 1:53 PM MOTOR TRANSPORT INSPECTOR Body Mass Index 37.68 09/12/2024 1:53 PM MOTOR TRANSPORT INSPECTOR Plan of Treatment Upcoming Encounters Date Type Department Care Team (Late st Contact Info) Description 11/13/2024 1:00 PM CDT Appointment [facility] [address] [place] [phone] Health Maintenance Due Date Last Done Comments HIV SCREENING 2010 HEPATITIS C SCREENING 03/10/2013 DTAP/TDAP/TD VACCINES (1 - Tdap) 2014 HEPATITIS B VACCINE (1 of 3 - 19+ 3-dose series) 2014 COVID-19 VACCINE (3 - 2023- season) 2024 09/11/2021, 08/12/2021 DEPRESSION SCREENING 08/30/2024 OB-ONE HOUR GLUCOSE 10/05/2024 OB-TDAP CURRENT 10/12/2024 OB-RHOGAM INJECTION 10/19/2024 PAP SMEAR 06/29/2027 06/29/2024, 03/30/2024 ZOSTER VACCINE (1 of 2) 2045 INFLUENZA VACCINE Completed 05/30/2024, , 06/04/2022, Additional history exists HIB VACCINE Aged Out No longer eligi ble based on patient's age to complete this topic HPV VACCINE Aged Out No longer eligi ble based on patient's age to complete this topic MENINGOCOCCAL (Group B) VACCINE Aged Out No longer eligible based on patient's age to complete this topic MENINGOCOCCAL VACCINE Aged Out No dario maida eligible based on patient's age to complete this topic PNEUMOCOCCAL VACCINE Aged Out No long er eligible based on patient's age to complete this topic Respiratory Syncytial Virus (RSV) Vaccine Pt: or over 60 yrs (No Doses Required) Completed Procedures Procedure Name Priority Date/Time Associated Diagnosis Comments SONOGRAM - COMPLETE Routine 10/13/2024 12:49 PM MOTOR TRANSPORT INSPECTOR Seventh (HCC) Supervision of high-risk of young multigravida (HCC) Amniotic band in second trimester, single or unspecified fetus (HCC) Uterine synechiae SONOGRAM - COMPLETE Routine 09/12/2024 1:50 PM MOTOR TRANSPORT INSPECTOR [facility] (HCC) Supervision of high-risk of young multigravida (HCC) Amniotic band in second trimester, single or unspecified fetus (HCC) Uterine synechiae from Last 3 Months Results * SONOGRAM - COMPLETE (10/13/2024 12:49 PM MOTOR TRANSPORT INSPECTOR) Only the most recent of2 resultswithin the [...] following structures appear normal: Heart / Thorax 8-[id number] view. Abdomen Stomach. Bladder. Genitals. Spine Cervical [...] reevaluate growth and kidneys Coding ====== Procedures [id number]: US Preg Uterus Follow Up [facility] [employer] PACS Anatomical Region Laterality Modality Other 10/13/2024 12:4 9 PM MOTOR TRANSPORT INSPECTOR R Panchito Hurtado MD [facility] ORDERABLES from Last 3 Months Care Teams Gluer And Wedger Relationship Specialty Start Date End Date Namita Saini, HAND OR MACHINE PASTER-CORRECTIONAL PROBATION OFFICER [address] [place] [phone] PCP - General Nurse Practitioner 03/07/20
--- OUTSIDE RECORDS SUMMARY | 2024-10-20 11:30 | XMS_ITS | Referral Summary ---
Author Organization [facility] Address [address] [place] [address] Care Team Providers Care Assembling Inspector Name Role Phone Namita Saini Damian PETAL SHAP[employer] HAND-TRIMMING CUTTER MACHINE Primary Care Provide r Source Comments [facility],non-owned Affiliates and Associated Physician Practices is amultiple site organization consisting of ambulatory clinics and hospital sitesin [place], [place], [place] and [place]. This disclosure is being madepursuant to the Care Everywhere program and may not contain all information available regarding this patient. Last updated 18.[facility] Encounters Date Type Department Care Team Description 10/13/2024 12:47 PM WORKERS COMPENSATION MANAGER - 10/13/2024 11:59 PM WORKERS COMPENSATION MANAGER Hospital Encounter [facility] Maternal & Care [address] [place] [id number] Ginny Katz MD Discharge Disposition: Home or Self Care 09/12/2024 1:41 PM WORKERS COMPENSATION MANAGER - 09/12/2024 11:59 PM WORKERS COMPENSATION MANAGER Hospital Encounter [facility] Maternal & Care [address] [place] [id number] Ruth Rodrigues MD Discharge Disposition: Home or Self Care 09/12/2024 1:36 PM WORKERS COMPENSATION MANAGER - 09/12/2024 1:40 PM WORKERS COMPENSATION MANAGER Hospital Encounter [facility]aternal & Care [address] [place] [id number] Ruth Rodrigues MD Discharge Disposition: Home or Self Care from Last 3 Months Allergies Active Allergy Reactions Criticality Noted Date Comments Amoxicillin Rash Medium 09/11/2024 Latex Unknown 09/11/2024 Pineapple Unknown 09/11/2024 Metoclopramide Other 09/11/2024 [place] drugged [facility] taking [facility] Medications * Be aware that medications [...] on Patient Reported No known active problems Social History Tobacco [...] Comments Blood Pressure 113/75 09/12/2024 1:53 PM WORKERS COMPENSATION MANAGER Pulse 85 09/12/2024 1:53 PM WORKERS COMPENSATION MANAGER Temperature - - Respiratory Rate - - Oxygen Saturation - - Inhaled Oxygen Concentration - - Weight 93.4 kg (206 lb) 09/12/2024 1:53 PM WORKERS COMPENSATION MANAGER Height 157.5 cm (5' 2 ) 09/12/2024 1:53 PM WORKERS COMPENSATION MANAGER Body Mass Index 37.68 09/12/2024 1:53 PM WORKERS COMPENSATION MANAGER Plan of Treatment Upcoming Encounters Date Type Department Care Team (Late st Contact Info) Description 11/13/2024 1:00 PM CDT Appointment [facility] Maternal & Care [address] [place], [place] [id number] Procedures Procedure Name Priority Date/Time Associated Diagnosis Comments SONOGRAM - COMPLETE Routine 10/13/2024 12:49 PM WORKERS COMPENSATION MANAGER Seventh (HCC) Supervision of high-risk of young multigravida (HCC) Amniotic band in second trimester, single or unspecified fetus (HCC) Uterine synechiae SONOGRAM - COMPLETE Routine 09/12/2024 1:50 PM WORKERS COMPENSATION MANAGER Seventh (HCC) Supervision of high-risk of young multigravida (HCC) Amniotic band in second trimester, single or unspecified fetus (HCC) Uterine synechiae from Last 3 Months Results * SONOGRAM - COMPLETE (10/13/2024 12:49 PM WORKERS COMPENSATION MANAGER) Only the most recent of2 resultswithin the [...] following structures appear normal: Heart / Thorax [id number] view. Abdomen Stomach. Bladder. Genitals. Spine Cervical [...] reevaluate growth and kidneys Coding ====== Procedures [id number]: US Preg Uterus Follow Up [employer] PACS Anatomical Region Laterality Modality Other 10/13/2024 12:4 9 PM WORKERS COMPENSATION MANAGER R Panchito Hurtado MD [facility] ORDERABLES from Last 3 Months Care Teams Assembling Inspector Relationship Specialty Start Date End Date Namita Saini, [employer]AL [employer] HAND-TRIMMING CUTTER MACHINE [address] [place] [id number] PCP - General Nurse Practitioner 03/07/20
--- OUTSIDE RECORDS SUMMARY | 2024-10-20 11:30 | XMS_ITS | Data Portability ---
Author Organization [facility] Nia [facility] Address [address] [place] [address] Care Team Providers Care Insurance Agency Owner Name Role Phone ANGIE GOLDBERG Family Medicine Assessment No assessment recorded. Plan of Treatment Reminders Order Date Submit Date Provider Last Modified By Organization Details Last Modified Time Details Appointments None recorded. Lab PPD (purified protein derivative ), skin test 2019 020 REGENT In-Office Order, Internal Use Only DO Not Attach Compendium DO Not Attach Compendium, Do Not Delete/merge, [id number] 14:38:34 PPD (purified protein derivative ), skin test 2019 020 KENJI In-Office Order, Internal Use Only DO Not Attach Compendium DO Not Attach Compendium, Do Not Delete/merge, [id number] 0 12:52:46 Referral None recorded. Procedures None recorded. Surgeries None recorded. Imaging XR, foot, 3 or more view [address] [facility] (Radiology), [facility] [place], [address], 0 11:45:05 Medication Orders Qsymia 3.75 mg-23 mg capsule, extended release [address] [facility] [address] [place], [address], 0 14:38:09 Qsymia 7.5 mg-46 mg capsule, extended release 2019 020 [email or web address] [facility] [address] [place], [address], 0 14:38:17 phentermin e 15 mg capsule 2019 020 INTERFACE [facility] [address] [place], [address], 0 12:55:28 Tubersol 5 tub. unit/0.1 mL intraderma l injection solution 2019 020 [facility] [address] [place], [address], 0 16:11:46 Tubersol 5 tub. unit/0.1 mL intraderma l injection solution 2019 020 [facility] [address] [place], [address], 0 16:11:46 Patient TargetsNo targets recorded. Patient Instructions Encounter Date Encounter Id Patient Instructions Last Modified By Organization Details Last Modified Time 03/07/2020 [id number] A healthy lifestyle: care instructions [email or web address] Not available 03/09/2020 15:50:24 Reason for Referral None Reported. Results Created Date Observation Date Name Description Value Unit Range Abnormal Flag Note LastModifiedBy Organization Detail LastModifiedTime 03/11/2003/11/2020 PPD (kush fied prote in deriv ative ), skin test Result Negati ve Not Available In-Office Order Internal Use Only DO Not Attach Compendium DO Not Attach Compendium, Do Not Delete/merge, [id number] 03/08/2020 11:47:39 03/21/2003/21/2020 PPD (kush fied prote in deriv ative ), skin test Result Negati ve Not Available In-Office Order Internal Use Only DO Not Attach Compendium DO Not Attach Compendium, Do Not Delete/merge, [id number] 03/18/2020 15:04:31 04/18/20 20 04/17/2020 XR, foot, 3 or more view No observ ation record ed. [email or web address] Not Available 2019 16:15:58 Result Notes None recorded. Problems Name Problem SNOMED Code Status Onset Date Resolution Date Notes Provider Name and Address Organization Details Recorded Time Anxiety 54342429 Active 018 Austin Castellano LPN null, [place] [facility] 8 09:22:03 Depressive disorder 98633803 Active 018 Austin Castellano LPN [place], [place] [facility] 8 09:22:08 Vitamin D deficiency 75629273 Active 020 Angie Tompkinser [place], [place] [facility] 0 09:45:46 Iron deficiency 62826981 Active 020 Angie Tompkinser [place], [place] [facility] 0 09:45:47 Problem Notes None recorded. Procedures Surgical History Date Name Laterality Status Provider Name and Address Organization Details Recorded Time 8 Date of Last Pap Smear completed Austin Castellano LPN [place] [facility] 05/03/2018 09:22:35 Oral surgery procedure completed Austin Castellano LPN [place] [facility] 05/03/2018 09:25:24 Imaging Results Imaging Date Name Status LastModified by Organiz ation Details LastModified Time 04/17/2020 XR, foot, 3 or more view completed [email or web address] Information not available 04/18/2020 16:15:58 Procedure Notes None recorded. Medical Equipment None Reported. Allergies Allergen ID Allergen Name Allergen Category Reaction Reaction Severity Criticality Documentation Date Start Date Code Code System Note Provider Name and Address Organization Details Recorded Time 814452 latex environme nt,medica tion rash Not available Not available 05/03/2018 12064 91 RxNorm Not Available Not Available Not Available 312419 Product containin g penicilli n (product) medicatio n vomiting Not available Not available 05/03/2018 98565 8001 SNOMED Not Available Not Available Not Available Medications Name Sig Start Date Stop Date Status Note LastModified by Organization Details LastModified Time prednisone 10 mg tablet Take 1 tablet every day by oral route for 5 days. 12/31 completed Not Available Not Available Not Available trazodone 50 mg tablet Take 1 tablet every day by oral route at bedtime for 30 days. active Not Available Not Available No t Available cetirizine 10 mg tablet 04/17 completed Not Available Not Available Not Available azithromyci n 250 mg tablet active Not Available Not Available Not Available fluconazole 150 mg tablet 12/31 completed Not Available Not Available Not Available clomiphene citrate 50 mg tablet 2 tablets 5 days out of every month 03/07 completed Not Available Not Available Not Available Tubersol 5 tub. unit/0.1 mL intradermal injection solution Administe r .1ml interderm ally 04/17 completed Not Available Not Available Not Available phentermine 15 mg capsule Take 1 capsule every day by oral route in the morning for 30 days. 2019 active Not Available Not Available Not Avai lable Pepto-Bismo l Max St 525 mg/15 mL oral suspension Take 30 mL 4 times a day by oral route as needed. 11/23 completed Not Available Not Available Not Available metronidazo le 500 mg tablet Take 1 tablet twice a day by oral route for 7 days. 11/23 completed Not Available Not Available Not Available acetaminoph en 300 mg-codeine 30 mg tablet 11/23 completed Not Available Not Available Not Available citalopram 20 mg tablet Take 1 tablet every day by oral route for 30 days. 01/24 completed Not Available Not Available Not Available benzonatate 100 mg capsule Take 1 capsule 3 times a day by oral route as needed for 14 days. active Not Available Not Available No t Available ferrous sulfate 325 mg (65 mg iron) tablet Take 1 tablet every other day by oral route for 30 days. active Not Available Not Available No t Available sertraline 25 mg tablet Take 1 tablet every day by oral route for 30 days. 05/22 completed Not Available Not Available Not Available montelukast 10 mg tablet 11/23 completed Not Available Not Available Not Available hydroxyzine HCl 25 mg tablet Take 1 tablet 3 times a day by oral route as needed for 30 days. 11/23 completed Not Available Not Available Not Available ceftriaxone 500 mg solution for injection 12/31 completed Not Available Not Available Not Available norethindro ne acetate 5 mg tablet 03/01 completed Not Available Not Available Not Available hydroxychlo roquine 200 mg tablet active Not Available Not Available No t Available letrozole 2.5 mg tablet active Not Available Not Available Not Available ondansetron 4 mg disintegrat ing tablet Take 2 tablets every 12 hours by oral route. 11/23 completed Not Available Not Available Not Available dexamethaso ne sodium phosphate 10 mg/mL injection solution Take 5 mg by injection route. 05/22 completed Not Available Not Available Not Available fluoxetine 20 mg capsule TAKE 1 CAPSULE BY MOUTH ONCE DAILY 01/24 completed Not Available Not Available Not Available doxycycline hyclate 100 mg tablet 12/31 completed Not Available Not Available Not Available naproxen 500 mg tablet Take 1 tablet twice a day by oral route with meals for 30 days. active Not Available Not Available No t Available escitalopra m 10 mg tablet 11/23 completed Not Available Not Available Not Available clonazepam 0.25 mg disintegrat ing tablet 11/23 completed Not Available Not Available Not Available progesteron e 75 mg daily x 10 days after start of period 05/22 completed Not Available Not Available Not Available cholecalcif paul (vitamin D3) 1,250 mcg (50,000 unit) capsule Take 1 capsule every week by oral route. active Not Available Not Available No t Available Xifaxan 550 mg tablet Take 1 tablet 3 times a day by oral route for 14 days. 12/31 completed Not Available Not Available Not Available Qsymia 3.75 mg-23 mg capsule, extended release Take 1 capsule every day by oral route for 14 days. 04/19 completed Not Available Not Available Not Available Qsymia 7.5 mg-46 mg capsule, extended release Take 1 capsule every day by oral route for 14 days. 04/19 completed Not Available Not Available Not Available Pirmella 1 mg-35 mcg tablet 03/01 completed Not Available Not Available Not Available butalbital 50 mg-acetamin ophen 300 mg-caffeine 40 mg-codeine 30 mg cap 05/03 completed Not Available Not Available Not Available Afluria 8982-0839 (PF) 45 mcg(15 mcg x 3)/0.5 mL intramuscul ar syringe 05/03 completed Not Available Not Available Not Available Vitals Date Recorded Body height Body mass index (BMI) Body weight Heart rate Respiratory rate Systolic blood pressure Diastolic blood pressure Systolic blood pressure Diastolic blood pressure Provider Name and Address Organization Details Last Updated DateTime 0 163.83 cm 51.5 kg/m2 432906. 67 g 80 /min 20 /min 118 mm[Hg] 74 mm[Hg] 118 mm[Hg] 68 mm[Hg] Austin Castellano LPN [place] - [facility] 0 10:02:16 Date Recorded Body height Body mass index (BMI) Body weight Heart rate Respiratory rate Systolic blood pressure Diastolic blood pressure Provider Name and Address Organization Details Last Updated DateTime 0 163.83 cm 52.3 kg/m2 843848. 48 g 72 /min 18 /min 114 mm[Hg] 68 mm[Hg] Austin Castellano LPN [facility] 0 16:11:13 Social History Question Answer Notes LastModified by Organizat ion Details LastModified Time Tobacco Smoking Status Never Smoker Austin Castellano LPN [facility] 05/03/2018 09:23:44 What Is Your Level Of Alcohol Consumption? Occasional 1-2 Times A Year Information not available 05/03/2018 What Is Your Level Of Caffeine Consumption? Occasional Information not available 05/03/2018 Are You Currently Employed? Yes Information not available 05/03/2018 What Type Of Diet Are You Following? 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 No Information not available 05/03/2018 Legally Blind In One Or Both Eyes? No Information not available 05/03/2018 Live Alone Or With Others? With Others Information not available 05/03/2018 What Was The Date Of Your Most Recent Tobacco Screening? 05/03/2018 Information not available 03/23/2019 General Stress Level Medium Information not available 05/03/2018 How Many Years Have You Smoked Tobacco? 0 Information not available 05/03/2018 Sex: Unknown Functional Status Question Answer Note LastModified by Organization D etails LastModified Time Are you able to care for yourself? Yes Information n ot available 05/03/2018 Mental Status None recorded. Family History Relationship Description Onset Age of this Age Resolved Age Notes LastModified by Organization Details LastModified Time Mother Malignant tumor of breast Not available 2017 09:22:57 Mother Heart failure 50 [email or web address] Not available 05/03 09:43:47 Mother Atrial fibrillation Not available 11/2017 09:23:29 Sister Diabetes mellitus Not available 2017 09:23:10 Medical History No medical history recorded. Gynecological History Statement/Question Response Date of Last Pap Smear 09/30/2017 Obstetrics History GPAL:G 0 P 0 0 0 0 Past Encounters Encounter ID Performer Location Encounter Start Date Encounter Closed Date Diagnosis/Indication Diagnosis SNOMED-CT Code Diagnosis ICD10 Code Diagnosis Note [id number] [facility] [address] [place] [address] 05/03/2018 09:13:07 05/03/2018 10:31:51 Intermittent palpitations 215758361 R00.2 05/03/18 c/o intermitte nt palpitatio ns starting in November of this year after starting a second job. Gets 4-5 hours of sleep per night. Cut out caffeine a couple months ago without change in symptoms. Symptoms do not occur with exercise and does not wake from sleep. Seen in [place] ED with a negative cardiac workup on 04-20-18. Will obtain results of that visit. Had a slight hypokalemi a at that time and was treated with potassium supplement s in the ED and sent home. Will recheck this. Encouraged to attempt to get 7-8 hours of sleep per night and relaxation techniques to see if this helps. Go to the ED for episodes of chest pain, SOB, nausea, diaphoresi s, or syncope. Fatigue 13433291 R53.83 05/03/18 c/o chronic fatigue, but worsened since starting a second job in November of this year. c/o hair loss. Will check TSH a test as she is not trying to prevent . Encouraged to get 7-8 hours of sleep per night. Localized swelling, mass and lump, lower limb 016970676 R22.41 9/4/18 approximat e 1 cm fluctuant mass noted to right anterior patellar area. No swelling or erythema noted to knee. Good ROM. Pressure on area does not increase pain. Will order an ultrasound to determine cause of mass. [id number] Angie Rodriguez [address] [place] [address] 07/25/2018 10:52:16 07/25/2018 12:58:57 Mixed anxiety and depressive disorder 233606401 F41.8 07/25/18 c/o anxiety for many years and greatly increased for the past month. States makes her hands start to tingle. Denies any changes when this started. States she recently quite her job at [employer] to cut out some of her stress. States little things will just set her off and she will feak out or hide and cry. Was on lexapro and it made her feel like she was a zombie. Had been on clonazepam but it knocks her out for 12 hours and made her feel like she got hit by a truck for the next 24 hours. Discussed different medication options and settled on Fluoxetine and hydroxyzin e for now. Will refer to counseling . RTC in 4 weeks for recheck or sooner if any concerns. Vaginal discharge 288269 006 N89.8 07/25/18 c/o watery vaginal discharge x 2 weeks with an occasional odor to it. Denies any color to discharge, any itching or sores. Denies exposure to STIs. Discussed likely bacterial vaginosis. Will treat empiricall y. Discussed to abstain from intercours e until finished with treatment. Removal of suture 080754 01 Z48.02 07/25/18 States she was told to f/u here for suture removal in 14 days. Today is day 13. Removed 3 sutures and wound started to come apart. Steri striped and instructed to RTC in 7 days and we will remove the rest of the sutures and apply more steri strips. [id number] Ang[facility] Rodriguez [address] [place] [address] 08/22/2018 08:32:48 08/22/2018 08:51:08 Depressive disorder 93130038 F32.9 Mixed anxi ety and depressive disorder 941422842 F41.8 07/25/18 c/o anxiety for many years and greatly increased for the past month. States makes her hands start to tingle. Denies any changes when this started. States she recently quite her job at [employer] to cut out some of her stress. States little things will just set her off and she will feak out or hide and cry. Was on lexapro and it made her feel like she was a zombie. Had been on clonazepam but it knocks her out for 12 hours and made her feel like she got hit by a truck for the next 24 hours. Discussed different medication options and settled on Fluoxetine and hydroxyzin e for now. Will refer to counseling . RTC in 4 weeks for recheck or sooner if any concerns. 08/22/18 Here for a 4 week f/u of depression and anxiety. Was started on fluoxetine 20 mg and hydroxyzin e 25 mg PRN. States she has noticed a big difference since starting the medication . States she only takes the hydroxyzin e at night but it seems to help. She had to take 1 dose though the day because she was feeling very agitated and anxious and it worked. States she has had a couple nights that she couldn't get to sleep. Denies any racing thoughts. States other than that everything has been good. Would like to continue medication at current dose. Will comply. RTC in 3 months for a recheck or sooner if any concerns. [id number] [facility] [address] [place] [address] 08/24/2018 15:36:01 08/24/2018 16:31:55 Viral gastroenteritis [id number] A08.4 08/24/18 c/o diarrhea and vomiting and cold chills since 0300 this morning. c/o epigastric pain. Not able to keep anything down. States within 5 minutes after taking sips of anything it comes back up. States has aunt and cousin with similar s/s and they were together yesterday for [place]. States about 30 minutes before getting here she started having numbness to bilateral hands and like the room was spinning. Pt appears pale and breathing fast. Got up to vomit during interview. Orthostati c vs laying 120/72 sitting 110/68, standing 104/60 but denies dizziness or lightheade dness. Discussed BRAT diet. Only clear liquids for the next 24 hours. Frequent sips of clear liquids when tolerated with nothing by mouth for 1 hour after vomiting. Discussed good handwashin g, signs of dehydratio n and if present to go to ED or urgent care for IV fluids. Discussed taking Zofran first then waiting 30-60 minutes before taking Pepto-Bism ol. States understand ing. Denies questions. RTC if no improvemen t in 1-2 days or sooner if any concerns. [id number] [facility] [address] [place] [address] 11/23/2018 15:39:38 11/23/2018 16:16:48 Mixed anxiety and depressive disorder 525934208 F41.8 07/25/18 c/o anxiety for many years and greatly increased for the past month. States makes her hands start to tingle. Denies any changes when this started. States she recently quite her job at [employer] to cut out some of her stress. States little things will just set her off and she will feak out or hide and cry. Was on lexapro and it made her feel like she was a zombie. Had been on clonazepam but it knocks her out for 12 hours and made her feel like she got hit by a truck for the next 24 hours. Discussed different medication options and settled on Fluoxetine and hydroxyzin e for now. Will refer to counseling . RTC in 4 weeks for recheck or sooner if any concerns. 08/22/18 Here for a 4 week f/u of depression and anxiety. Was started on fluoxetine 20 mg and hydroxyzin e 25 mg PRN. States she has noticed a big difference since starting the medication . States she only takes the hydroxyzin e at night but it seems to help. She had to take 1 dose though the day because she was feeling very agitated and anxious and it worked. States she has had a couple nights that she couldn't get to sleep. Denies any racing thoughts. States other than that everything has been good. Would like to continue medication at current dose. Will comply. RTC in 3 months for a recheck or sooner if any concerns. 11/23/18 states the fluoxetine started causing burning to her abdomen, esophagus, and back of her throat. Not improved with OTC meds so she stopped taking it. Would like to discuss other options. Discussed other medication s with risk/benef it. Pt chooses sertraline and discussed ADRs and expected effects. RTC in 4-8 weeks for recheck or sooner if any concerns. Irritable bowel syndrome with diarrhea [id number] K58.0 11/23/18 c/o frequent loose stools especially after eating. c/o bloating and excess gas x 2 months. States some foods really seem to worsen the s/s. Discussed likely irritable bowel syndrome and may benefit from an eliminatio n diet for the next 6 weeks and then slowly start introducin g food back. Agrees to trial. rTC in 6-8- weeks for recheck or sooner if any concerns. [id number] [facility] [address] [place] [address] 01/24/2019 15:31:27 01/24/2019 17:15:25 Mixed anxiety and depressive disorder 368704200 F41.8 07/25/18 c/o anxiety for many years and greatly increased for the past month. States makes her hands start to tingle. Denies any changes when this started. States she recently quite her job at [employer] to cut out some of her stress. States little things will just set her off and she will feak out or hide and cry. Was on lexapro and it made her feel like she was a zombie. Had been on clonazepam but it knocks her out for 12 hours and made her feel like she got hit by a truck for the next 24 hours. Discussed different medication options and settled on Fluoxetine and hydroxyzin e for now. Will refer to counseling . RTC in 4 weeks for recheck or sooner if any concerns. 08/22/18 Here for a 4 week f/u of depression and anxiety. Was started on fluoxetine 20 mg and hydroxyzin e 25 mg PRN. States she has noticed a big difference since starting the medication . States she only takes the hydroxyzin e at night but it seems to help. She had to take 1 dose though the day because she was feeling very agitated and anxious and it worked. States she has had a couple nights that she couldn't get to sleep. Denies any racing thoughts. States other than that everything has been good. Would like to continue medication at current dose. Will comply. RTC in 3 months for a recheck or sooner if any concerns. 11/23/18 states the fluoxetine started causing burning to her abdomen, esophagus, and back of her throat. Not improved with OTC meds so she stopped taking it. Would like to discuss other options. Discussed other medication s with risk/benef it. Pt chooses sertraline and discussed ADRs and expected effects. RTC in 4-8 weeks for recheck or sooner if any concerns. 01/24/19 here for f/u of mixed anxiety and depression and switching to sertraline from fluoxetine . States the switch went well and without any ADRs. States she feels like it is working well and at the appropriat e dose. States the short temper and easy irritation have completely gone now. States has had a couple episodes of feeling down but was able to manage this on her own without any problems. Will continue sertraline at current dose for the next year unless any concerns. Dysfunctio n of eustachian tube 44911020 H68.011 01/24/19 c/o burning sensation to right ear x 2 weeks. Denies any sinus congestion or drainage, sore throat, or cough. Denies fever, chills, body aches. Denies any difficulty hearing. Air fluid level noted to right TM but no erythema or bulging. Oropharnyx clear. No LAD. Discussed likely eustachian tube dysfunctio n. Will treat with prednisone and cetirizine . RTC in 2 weeks for recheck or sooner if any concerns. [id number] [facility] [address] [place] [address] 03/01/2019 15:49:41 03/01/2019 16:49:38 Pruritic rash 12673722 L28.2 03/01/19 c/o rash to bilateral legs x 3 days and has scratched with small areas of bruising from this. States it is much better today than last night but still very itchy. Noted to bilateral legs, but no other parts of the body. Keeping her from sleeping. Denies changing any detergents , cleaning products, bathing products, being around anything that are likely to cause a reaction. scattered red/light pink slightly raised lesions to bilateral legs, but no where else. Negative urine test, will trial dexamethas one. rTC in 5-7 days if no improvemen t or sooner if any worsening or concerns. [id number] MD [facility] [address] [place] [address] 10/11/2019 10:57:50 10/11/2019 13:01:13 Irritable bowel syndrome with diarrhea 634746527 K58.0 11/23/18 c/o frequent loose stools especially after eating. c/o bloating and excess gas x 2 months. States some foods really seem to worsen the s/s. Discussed likely irritable bowel syndrome and may benefit from an eliminatio n diet for the next 6 weeks and then slowly start introducin g food back. Agrees to trial. rTC in 6-8- weeks for recheck or sooner if any concerns. 10/11/2019 c/o mushy stools several times per day for the past month. Denies any abdominal pain, blood, mucous, or pus in stool. States she has had problems similar in the past and it has gone away with dietary changes, but this time she has eliminated her known triggers and it made no improvemen t. Discussed Xifaxan ADRs and expected effects. Pt willing to trial. Dysfunctio n of eustachian tube 88666257 H68.011 01/24/19 c/o burning sensation to right ear x 2 weeks. Denies any sinus congestion or drainage, sore throat, or cough. Denies fever, chills, body aches. Denies any difficulty hearing. Air fluid level noted to right TM but no erythema or bulging. Oropharnyx clear. No LAD. Discussed likely eustachian tube dysfunctio n. Will treat with prednisone and cetirizine . RTC in 2 weeks for recheck or sooner if any concerns. 10/11/2019 c/o pain and congestion to right ear with a muffled sound. c/o sinus congestion and drainage. Denies any fever, chills, or body aches. Exam is reassuring . Discussed likely eustachian tube dysfunctio n and can treat symptomati flora. RTC in 7-10 days if no improvemen t or sooner if any worsening or concerns. Fatigue [id number] R53.83 05/03/18 c/o chronic fatigue, but worsened since starting a second job in November of this year. c/o hair loss. Will check TSH a test as she is not trying to prevent . Encouraged to get 7-8 hours of sleep per night. 10/11/2019 c/o horrible fatigue that seems worse the past few months. States she will sleep all night and then when she gets home from work will nap until her comes home and does this most days. Will check labs and go from there. HIV screening [id number] Z11.4 [id number] Angie Rodriguez [address] [place] [id number] 01/01/2020 13:05:19 01/01/2020 15:19:26 Mixed insomnia [id number] G47.09 01/01/2020 phone visit for f/u of fatigue and c/o excessive daytime somnolence . Partner c/o some snoring but only occasional ly. Denies noticing any apnea spells. States she feels that she lays with her eyes closed but never really falls asleep. Discussed treating for insomnia to see if this improves the somnolence . Discussed trazodone ADRs and expected effects and pt willing to trial. RTC in 3 months for f/u or sooner if any worsening or concerns. [id number] Angie Rodriguez [address] [place] [id number] 03/07/2020 09:51:27 03/07/2020 11:07:42 Adult health examination [id number] Z00.00 03/06/20: Here for a school physical. Exam within normal limits. Required form completed and given to patient. Advised her to RTC for TB skin test. Body mass index 40+ - severely obese [id number] Z68.43 Morbid obesity 207497085 E66.01 [id number] RAKESH Lucero [facility] [address] [place] [id number] 03/08/2020 11:30:25 03/08/2020 11:47:54 Tuberculosis screening [id number] Z11.1 [id number] Austin CastellanoRAKESH HC [address] [place] [id number] 03/11/2020 13:59:33 03/11/2020 14:13:58 [id number] RAKESH Lucero [address] [place] [id number] 03/18/2020 14:45:31 03/18/2020 14:58:58 Tuberculosis screening [id number] Z11.1 [id number] Angie Schulza [address] [place] [id number] 04/17/2020 15:49:33 04/17/2020 16:46:49 Pain in left foot [id number] 37130 M79.672 04/17/2020 c/o pain to left ventral foot x 1.5 weeks after pushing concrete stairs back and felt a pop. Able to walk but this increases the pain. REBECCA wrap applied. Advised RICE, ibuprofen as directed and will check an xray to make sure there is no stress fx. Body mass index 40+ - severely obese [id number] Z68.43 04/17/2020 Interested in weight loss. Has been working out a few times per week and trying to decrease carbs and cut out sweet drinks altogether but this does not seem to be doing anything. No longer trying to get at this point. Waiting until after the wedding. Discussed journaling intake using one of the free apps (iTrack Bites, ZMPP al, etc), decreasing carbs, and making sure she gets a minimum of 30 minutes of brisk walking per day to help with this. Discussed multiple different weight loss medication s and bariatric referral and pt would like to try Qsymia if covered by her insurance and if not phentermin e. Discussed ADRs and expected outcomes of both. RTC in 4 weeks for f/u or sooner if any worsening or concerns. Health Concerns Section Related Observation LastModified by Organization Detai ls LastModified Time None Recorded Concern Status LastModified by Organization Details LastModified Time None Recorded Advance Directives Directive None Recorded Payers Encounter Date Sequence Insurance Name Policy Number Policy Barlow Covered Member ID Barlow Member ID Guarantor Name 03/07/2020 1 [facility] [id number] [facility] [id number] 3 [facility] 03/08/2020 1 [facility] [id number] [facility] [id number] 3 [facility] 03/11/2020 1 [facility] [id number] [facility] [id number] 3 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 Able to walk but this increases the pain. Interested in weight loss. Has been working out a few times per week and trying to decrease carbs and cut out sweet drinks altogether but this does not seem to be doing anything. No longer trying to get at this point. Waiting until after the wedding. DONALD Morales 04/23/2020 12:44:51 OBGyn Episode No OBEpisode recorded.
[2024-10-20 12:10] LABS: Add Urine Microscopic? YES; Appearance Urine Clear (Clear); Bacteria Urine 1+ /hpf; Bilirubin Urine 1+ (Negative); Blood Urine Negative (Negative); Color Urine Dark Yellow (Yellow); Glucose Urine UA Negative (Negative); Ketones Urine Trace mg/dL (Negative); Leukocyte Esterase Ur 1+ LEU/UL (Negative); Mucus Urine Present /lpf; Need Manual Microscopic Reviewed; Nitrate Urine Negative (Negative); Protein Urine 1+ mg/dL (Negative); RBC Urine 0-2 /hpf (0-2); Specific Grav Ur 1.034 (1.001-1.035); Squamous Epithelial Cell Urine Occasional /hpf (Few); WBC Urine 0-5 /hpf (0-3); pH Urine 6.5 (5.0-9.0)
--- NOTE | 2024-10-20 14:45 | PC.NURSE ---
Dr. Hurtado informed of U/S microsoft dynamics developer note to radiologist that stated, suspected slow flow vessel visualized in posterior uterus near placental tip. Flow visualized in 2D cine clip. The radiology report just states The placenta is anterior fundal and not low-lying. and doesn't address the microsoft dynamics developer's note. Requested MD to look at U/S pictures. states he is coming to see pt.
--- NOTE | 2024-10-20 14:55 | PC.NURSE ---
Dr. Hurtado at bedside for bedside US, and to discuss possibility of transfer to [place], [place].
--- NOTE | 2024-10-20 15:21 | P.TS_ITS ---
Transfer Discharge Sum: Prov Provider Date of admission: 10/20/24 10:49 Primary care physician: OFFICE HELPER PHYSICIAN Admitting clinician: Branden Hurtado MD Consults: Maternal- medicine Receiving physician/facility: [facility], Dr. Samuels DS: Admitting Diagnosis Discharge Date 10/20/2024 Admitting Diagnosis 28 week , uterine pain/ tenderness. DS: Discharge Diagnosis Discharge Diagnosis (1) Antepartum hemorrhage affecting intrauterine : Code(s): O46.90 - Antepartum hemorrhage, unspecified, unspecified trimester Status: Acute Assessment and Plan: 29-year-old female at 28 weeks gestation multiparous with possible retro amniotic bleeding. To transfer to [facility]. Transferring to Dr. Samuels/Faye Transfer Discharge Sum: Med Medications Active and Home Medications: Home Medications omeprazole 20 mg capsule,delayed release 20 mg PO HS 12/20/23 [History Confirmed 10/20/24] vit no.95-ferrous fumarate 28 mg-folic acid 800 mcg tablet () 1 tablet PO DAILY 12/20/23 [History Confirmed 10/20/24] sertraline 50 mg tablet (Zoloft) 75 mg PO HS 12/20/23 [History Confirmed 10/20/24] calcium phosphate,dibasic 77 mg-vitamin D3 400 unit tablet 1 tablet PO DAILY 10/20/24 [History Confirmed 10/20/24] ferrous sulfate 325 mg (65 mg iron) tablet (Feosol) 325 mg PO DAILY 10/20/24 [History Confirmed 10/20/24] Transfer Discharge Sum: Hosp Hospital Course Hospital course: Kailey Webster is a 29 year old female presented the office with uterine tenderness/pain. She was sent to the hospital for evaluation. There was question of a tram neon bleeding. To transfer to [facility]. Transfer has been accepted. Time Spent with Patient Time attestation: Total time spent providing and/or coordinating transfer services: Exam Const: General: cooperative, healthy appearing, comfortable and no acute distress Orientation/consciousness: oriented to person, oriented to place and oriented to time HENMT: Head: normal to inspection Ears: external ears normal Face/Nose/Sinus: Normal external nose present and normal facial exam Face and sinus: normal facial exam Eyes: General: appearance normal, both eyes and all related structures Neck: Neck: normal visual inspection, trachea midline and supple Resp: Auscultation: clear to auscultation bilaterally, no crackles, no rales, no rhonchi and no wheezes Cardio: Rate: regular rate Rhythm: regular rhythm Heart sounds: no click, no murmurs and no rubs GI: GI Palp: No abdominal tenderness, No Soft to palpation, No Tenderness to palpation present (GI) and No Palpable mass present Auscultation: normal bowel sounds Skin: General skin exam: normal color and no rashes or lesions noted Neuro: General: oriented to person, oriented to place and oriented to time Extrem: General: normal to inspection, no joint enlargement, no clubbing, cyanosis or edema, no pedal edema and no calf tenderness Psych: Appearance: grossly normal Mental Status: mental status grossly normal Speech and movement: Normal speech and movement present DS: Data Data Completed and Pending Labs on day of discharge: Labs from last 24 hours 10/20/24 11:45 Urine Color Dark yellow Urine Appearance Clear Urine pH 6.5 Ur Specific [place] 1.034 Urine Protein 1+ H Urine Glucose (UA) Negative Urine Ketones Trace H Ur Blood (Man) Negative Urine Nitrate Negative Urine Bilirubin 1+ H Urine Urobilinogen 2.0 H Add Ur Microanalysis Reviewed Leukocyte Esterase Rfl 1+ H Urine RBC 0-2 Urine WBC 0-5 Ur Squamous Epith Cells Occasional Urine Bacteria 1+ H Urine Casts 3-5 Urine Mucus Present
--- NOTE | 2024-10-20 15:30 | PC.NURSE ---
Report given to Jemima Velasco RN- [facility] patient transport orderly. Transport team expects to be here in about an hour.
--- NOTE | 2024-10-20 15:34 | PM.IMHP ---
H&P: HPI History of Present Illness Date/Time: 10/20/24 15:34 Chief Complaint: Abdominal pain Narrative: This patient is a 29-year-old female, multiparous, at 28 weeks gestation who presented to the office with abdominal pain. She has marked uterine tenderness. She has no vaginal bleeding. She reports intermittent uterine cramping. Palpation of the through the vagina on bimanual exam was exquisitely tender. She denies any nausea, vomiting, fever, chills. She denies any chest pain or shortness of breath. She was seen at the hospital. Ultrasounds performed at the hospital in the Radiology Department. This possibility of a active retro amniotic bleed. Discussed the case with Maternal Medicine. They agreed to transfer to [facility]. Reassuring heart tones at this time. Review of Systems Review of Systems: All systems reviewed & are unremarkable except as noted in HPI and below Constitutional: Constitutional: Denies chills, Denies fatigue, Denies fever(s) and Denies weakness Eyes: Eyes: Denies blurry vision, Denies change in vision, Denies loss of peripheral vision, Denies loss of vision, Denies other visual disturbances and Denies eye pain ENT: Denies vertigo, Denies dizziness, Denies hearing loss, Denies mouth pain, Denies nasal obstruction, Denies neck mass and Denies neck pain Cardiovascular: Cardiovascular: Denies chest pain, Denies diaphoresis, Denies syncope, Denies leg edema and Denies dyspnea Respiratory: Respiratory: Denies chest congestion, Denies cough, Denies hemoptysis, Denies dyspnea and Denies wheezing Gastrointestinal: Gastrointestinal: Denies abdominal pain, Denies constipation, Denies diarrhea, Denies nausea and Denies vomiting Genitourinary: Genitourinary: Denies hematuria, Denies change in libido, Denies nocturia, Denies genital lesions, Denies flank pain and Denies urinary urgency Musculoskeletal: Musculoskeletal: Denies abnormal gait, Denies back pain, Denies myalgias, Denies arthralgias, Denies joint swelling, Denies muscle weakness and Denies neck pain Integumentary/Breasts: Skin/Breast: Denies swelling, Denies breast pain, Denies breast mass, Denies dry skin, Denies nipple discharge, Denies unusual bruising and Denies jaundice Neurologic: Denies Neuro-related abnormal movements, Denies Abnormal speech present, Denies abnormal gait, Denies behavioral changes, Denies confusion, Denies vertigo, Denies dizziness, Denies syncope, Denies loss of vision, Denies memory loss, Denies convulsions and Denies weakness Psychiatric: Psychiatric: Denies abnormal sleep pattern, Denies behavioral changes, Denies change in libido, Denies confusion, Denies depression, Denies anhedonia and Denies memory loss Endocrine: Endocrine: Reports no additional endocrine complaints, Denies change in libido and Denies fatigue Hematologic/Lymphatic: Hematologic/Lymphatic: Reports no additional hematologic/lymphatic complaints Allergic/Immunologic: Allergic/Immunologic: Reports no additional allergic/immunologic complaints and Denies wheezing PMFSH Past Medical History Medical History (Updated 10/20/24 @ 15:37 by Branden Hurtado MD) PCOS (polycystic ovarian syndrome) Obese GERD (gastroesophageal reflux disease) Surgical History Surgical History H/O gastric sleeve Social History Social History Smoking status: Never smoker Substance use: never Do You Feel Safe in your Home?: No Lack of Transportation: No Lack of Food: Never True Current Housing: I Have Housing Concerned About Future Housing: No Difficulty Paying Gas/Electric Bills: No Difficulty Paying for Meds: No Currently Unemployed: No Education: Trade/Vocational Certificate Difficulty w/ Childcare or Family Care: No Spiritual care concerns: No Meds Home Medications and Allergies Home Medications ?Medication ?Instructions ?Recorded ?Confirmed ?Type omeprazole 20 mg capsule,delayed 20 mg PO HS 12/20/23 10/20/24 History release vit no.95-ferrous 1 tablet PO DAILY 12/20/23 10/20/24 History fumarate 28 mg-folic acid 800 mcg tablet () sertraline 50 mg tablet (Zoloft) 75 mg PO HS 12/20/23 10/20/24 History calcium phosphate,dibasic 77 1 tablet PO DAILY 10/20/24 10/20/24 History mg-vitamin D3 400 unit tablet ferrous sulfate 325 mg (65 mg 325 mg PO DAILY 10/20/24 10/20/24 History iron) tablet (Feosol) Allergies Allergy/AdvReac Type Severity Reaction Status Date / Time amoxicillin Allergy Mild Rash Verified 10/20/24 11:30 latex Allergy Rash Verified 10/20/24 11:30 Penicillins Allergy Hives Verified 10/20/24 11:30 metoclopramide (From Reglan) AdvReac Intermediate Agitated Verified 10/20/24 11:30 other Allergy Rash Uncoded 10/20/24 11:30 Vital Signs Vital Signs - 24 hr 10/20/24 11:01 10/20/24 11:16 10/20/24 11:17 Pulse Rate 70 72 Blood Pressure 123/74 118/63 Oxygen Delivery Room Air 10/20/24 11:31 10/20/24 11:46 10/20/24 12:01 Pulse Rate 68 68 70 Blood Pressure 120/67 118/62 115/68 Oxygen Delivery 10/20/24 12:19 10/20/24 12:31 10/20/24 12:46 Pulse Rate 66 72 64 Blood Pressure 120/66 113/56 L 109/69 Oxygen Delivery 10/20/24 13:01 10/20/24 14:50 10/20/24 15:16 Pulse Rate 71 86 91 Blood Pressure 122/72 125/76 125/80 Oxygen Delivery 10/20/24 15:31 Pulse Rate 86 Blood Pressure 122/69 Oxygen Delivery Exam Const: General: cooperative, healthy appearing, comfortable and no acute distress Orientation/consciousness: oriented to person, oriented to place and oriented to time HENMT: Head: normal to inspection Ears: external ears normal Face/Nose/Sinus: Normal external nose present and normal facial exam Face and sinus: normal facial exam Eyes: General: appearance normal, both eyes and all related structures Neck: Neck: normal visual inspection, trachea midline and supple Resp: Auscultation: clear to auscultation bilaterally, no crackles, no rales, no rhonchi and no wheezes Cardio: Rate: regular rate Rhythm: regular rhythm Heart sounds: no click, no murmurs and no rubs GI: GI Palp: No abdominal tenderness, No Soft to palpation, No Tenderness to palpation present (GI) and No Palpable mass present Auscultation: normal bowel sounds Skin: General skin exam: normal color and no rashes or lesions noted Neuro: General: oriented to person, oriented to place and oriented to time Extrem: General: normal to inspection, no joint enlargement, no clubbing, cyanosis or edema, no pedal edema and no calf tenderness Psych: Appearance: grossly normal Mental Status: mental status grossly normal Speech and movement: Normal speech and movement present H&P: Results Labs Labs: Urine 10/20/24 Range/Units 11:45 Urine Color Dark yellow (Yellow) Urine Appearance Clear (Clear) Urine pH 6.5 (5.0-9.0) Ur Specific [place] 1.034 (1.001-1.035) Urine Protein 1+ H (Negative) mg/dL Urine Glucose (UA) Negative (Negative) mg/dL Assessment and Plan Assessment and plan (1) Subchorionic hemorrhage: Code(s): O46.8X9 - Other antepartum hemorrhage, unspecified trimester Status: Acute Plan This patient is a 29-year-old female, multiparous, at 28 weeks gestation who presented to the office with abdominal pain. She has marked uterine tenderness. She has no vaginal bleeding. She reports intermittent uterine cramping. Palpation of the infant through the vagina on bimanual exam was exquisitely tender. She denies any nausea, vomiting, fever, chills. She denies any chest pain or shortness of breath. She was seen at the hospital. Ultrasounds performed at the hospital in the Radiology Department. This possibility of a active retro amniotic bleed. Discussed the case with Maternal Medicine. They agreed to transfer to [facility]. Reassuring heart tones at this time.
--- NOTE | 2024-10-20 16:30 | PC.NURSE ---
[facility] Maternal transport team at bedside for transport, new VS taken and WNL, monitor strip reviewed, all questions answered; pt up to stretcher for transport, FOB to follow and meet pt and transport at [facility].
== END 2024-10-20 16:35 | disposition short-term general hospital (02) ==
LOC: ANHOBPP 10:54
PROVIDERS: Admitting Provider Obstetrics & Gynecology; Visit Provider Obstetrics & Gynecology
DX: O46.8X3 Other antepartum hemorrhage, third trimester (principal); Z3A.28 28 weeks gestation of pregnancy
CPT/HCPCS: 76815; 81001; 87086; G0378; G0379

== ENCOUNTER 2024-11-25 22:41 | Observation (INO) | payer OTHER, SELFPAY ==
--- OUTSIDE RECORDS SUMMARY | 2024-11-25 22:47 | XMS_ITS | Clinical Summary ---
Author Organization [facility] Address [address] [place] [address] Care Team Providers Care Final Inspector And Tester Name Role Phone Kristofer Mary Jane GRANT Primary Care Provider [phone] Claudia Green MD Unavailable Allergies Active Allergy [...] 30 DAYS 0 Active vitamin D2, ergocalciferol, [address]351 UNITS capsule Take 50,000 Units by mouth [...] a Colonoscopy and EGD for 09/10/2020 at [facility] in [place] Ventricular ectopy 10/24/2020 Atypical chest pain 09/06/2020 Palpitations 09/06/2020 Iron deficiency 10/12/2019 Anxiety 05/03/2018 Depressive disorder 05/03/2018 Hyperprolactinemia (HHS/HCC) 05/15/2015 Overview (08/14/2021): Date Onset: 05/15/2015 Vitamin [...] Overview (08/14/2021): Date Onset: 01/15/2015 Morbid obesity 01/02/2015 Overview (08/14/2021): Date Onset: 01/02/2015 Resolved [...] on file Legal Sex Female 6:24 PM SENIOR SOFTWARE QUALITY ANALYST Gender Identity Female 09/28/2022 2:41 PM SENIOR SOFTWARE QUALITY ANALYST Sexual Orientation Not on file 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 Not on file Not on file Not on file Last Filed Vital Signs Vital Sign Reading Time Taken Comments Blood Pressure 115/56 07/19/2024 10:30 AM SENIOR SOFTWARE QUALITY ANALYST Pulse 78 07/19/2024 10:30 AM SENIOR SOFTWARE QUALITY ANALYST Temperature 36.8 C (98.2 F) 07/19/2024 7:50 AM SENIOR SOFTWARE QUALITY ANALYST Respiratory Rate 18 07/19/2024 7:50 AM SENIOR SOFTWARE QUALITY ANALYST Oxygen Saturation 100% 07/19/2024 10:30 AM SENIOR SOFTWARE QUALITY ANALYST Inhaled Oxygen Concentration - - Weight 93.4 kg (206 lb) 07/19/2024 7:50 AM SENIOR SOFTWARE QUALITY ANALYST Height 162.6 cm (5' 4 ) 07/19/2024 7:50 AM SENIOR SOFTWARE QUALITY ANALYST Body Mass Index 35.36 07/19/2024 7:50 AM SENIOR SOFTWARE QUALITY ANALYST Plan of Treatment Health Maintenance Due Date [...] patient's age to complete this topic Insurance [employer] [facility] Care Teams Final Inspector And Tester Relationship Specialty Start Date End Date Mary Jane Miner NP [address] [place] [address] PCP - General NURSE PRACTITIONER 09/04/20 Claudia Green MD [address] [place] [address] Consulting Physician CARDIOVASCULAR DISEASE 01/15/21
--- OUTSIDE RECORDS SUMMARY | 2024-11-25 22:47 | XMS_ITS | Clinical Summary ---
Author Organization [facility] Rollad Address [address] [place] [address] Care Team Providers Care Printing Press Machinist Name Role Phone Namita Saini LABORER [employer] PROJECT ENGINEER Primary Care Provide r Source Comments [facility],non-owned Affiliates and Associated Physician Practices is amultiple site organization consisting of ambulatory clinics and hospital sitesin [place], [place], [place] and [place]. This disclosure is being madepursuant to the Care Everywhere program and may not contain all information available regarding this patient. Last updated 18.[facility] Allergies Active Allergy Reactions Criticality Noted Date Comments Amoxicillin Rash Medium 09/11/2024 Latex Unknown 09/11/2024 Pineapple Unknown 09/11/2024 Metoclopramide Other 09/11/2024 Mountainair drugged when taking [facility] Medications * Be aware that medications [...] 50 MG tabletIndications:Ge neralized Anxiety Disorder Take 1.5 (one and one-half) tablets by mouth at bedtime Reasons: Generalized Anxiety Disorder Active omeprazole (PriLOSEC) 20 MG capsuleIndications:H eartburn Take 1 (one) capsule by mouth daily before breakfast Reasons: Heartburn Active ferrous sulfate 325 (65 FE) MG tablet Take 1 (one) tablet by mouth once daily Active Active Problems Problem Noted Date Diagnosed Date Lower abdominal pain 10/20/2024 Estimated Date of Delivery Comme nts Yes 01/11/2025 Based on Patient Reported Encounters Date Type Department Care Team Description 11/13/2024 12:51 PM CDT - 11/13/2024 11:59 PM CDT Hospital Encounter [facility] [address] [place] [phone] Zarina Mazariegos MD Discharge Disposition: Home or Self Care 10/24/2024 Telephone [facility] [address] [facility] [address] [place] [phone] Melonie Mnotoya RN Hospitalization; Hospital Follow-up 10/20/2024 5:24 PM EXPERIMENTAL ROCKET SLED MECHANIC - 10/23/2024 2:47 PM EXPERIMENTAL ROCKET SLED MECHANIC Hospital Encounter [facility]TEPARTUM[facility]MOTHER BABY [address] [place] [address] Ginny Katz MD Maternal Medicine Discharge Disposition: Home or Self Care 10/20/2024 Travel 10/13/2024 12:47 PM EXPERIMENTAL ROCKET SLED MECHANIC - 10/13/2024 11:59 PM EXPERIMENTAL ROCKET SLED MECHANIC Hospital Encounter [facility] [address] [place] [phone] Ginny Katz MD Discharge Disposition: Home or Self Care 09/12/2024 1:41 PM EXPERIMENTAL ROCKET SLED MECHANIC - 09/12/2024 11:59 PM EXPERIMENTAL ROCKET SLED MECHANIC Hospital Encounter [facility] [address] [place] [phone] Ruth Rodrigues MD Discharge Disposition: Home or Self Care 09/12/2024 1:36 PM EXPERIMENTAL ROCKET SLED MECHANIC - 09/12/2024 1:40 PM EXPERIMENTAL ROCKET SLED MECHANIC Hospital Encounter [facility] [address] [place] [phone] Ruth Rodrigues MD Discharge Disposition: Home or Self Care from Last 3 Months Social History Tobacco Use Types Packs/Day Years Used Date Smoking Tobacco: Never Smokeless Tobacco: Never Tobacco Cessation:Counseling Given: Not Answered Overall Financial Resource Strain (CARDIA) Answe r Date Recorded How hard is it for you to pa y for the very basics like food, housing, medical care, and heating? Not hard at all 10/20/2024 [facility] [place] of Occupat ional Health - Occupational Stress Questionnaire Answer Date Recorded Do you feel stress - tense, restless, nervous, or anxious, or unable to sleep at night because your mind is troubled all the time - these days? Only a little 10/20/2024 Hunger Vital Sign Answer Date Recorded Within the past 12 months, y ou worried that your food would run out before you got the money to buy more. Never true 10/20/19 25 Within the past 12 months, t he food you bought just didn't last and you didn't have money to get more. Never true 10/20/2024 PRAPARE - Transportation Answer Date Re corded In the past 12 months, has l ack of transportation kept you from medical appointments or from getting medications? No 10/01 In the past 12 months, has l ack of transportation kept you from meetings, work, or from getting things needed for daily living? No 10/20/2024 Housing Stability Vital Sign Answer Alvaro e Recorded In the last 12 months, was t here a time when you were not able to pay the mortgage or rent on time? No 10/20/2024 In the past 12 months, how m any times have you moved where you were living? 1 10/20/2024 At any time in the past 12 m [facility], were you homeless or living in a fpc (including now)? No 10/20/2024 Estimated Date of Delivery Comme nts Yes 01/11/2025 Based on Patient Reported Sex and Gender Information Value Date Recorded Sex Assigned at Female 10/20/2024 11:03 PM EXPERIMENTAL ROCKET SLED MECHANIC Gender Identity Not on file Sexual Orientation Not on file Last Filed Vital Signs Vital Sign Reading Time Taken Comments Blood Pressure 121/69 10/23/2024 12:15 PM EXPERIMENTAL ROCKET SLED MECHANIC Pulse 85 09/12/2024 1:53 PM EXPERIMENTAL ROCKET SLED MECHANIC Temperature 36.8 C (98.3 F) 10/23/2024 12:15 PM EXPERIMENTAL ROCKET SLED MECHANIC Respiratory Rate 18 10/23/2024 8:25 AM EXPERIMENTAL ROCKET SLED MECHANIC Oxygen Saturation 100% 10/23/2024 1:05 PM EXPERIMENTAL ROCKET SLED MECHANIC Inhaled Oxygen Concentration - - Weight 96.2 kg (212 lb) 10/21/2024 7:12 AM EXPERIMENTAL ROCKET SLED MECHANIC Height 162.6 cm (5' 4 ) 10/21/2024 7:12 AM EXPERIMENTAL ROCKET SLED MECHANIC Body Mass Index 36.39 10/21/2024 7:12 AM EXPERIMENTAL ROCKET SLED MECHANIC Plan of Treatment Upcoming Encounters Date Type Department Care Team (Late st Contact Info) Description 12/11/2024 2:30 PM CDT Appointment [facility] [address] [place], [place] [phone] Health Maintenance Due Date Last Done Comments HEPATITIS C SCREENING 03/10/2013 DTAP/TDAP/TD VACCINES (1 - Tdap) 2014 HEPATITIS B VACCINE (1 of 3 - 19+ 3-dose series) 2014 COVID-19 VACCINE ( season) 2024 09/11/2021, 08/12/2021 DEPRESSION SCREENING 08/30/2024 OB-ONE HOUR GLUCOSE 10/05/2024 OB-TDAP CURRENT 10/12/2024 PAP SMEAR 03/30/2027 03/30/2024 ZOSTER VACCINE (1 of 2) 2045 INFLUENZA VACCINE Completed 05/30/2024, , 06/04/2022, Additional history exists OB-GROUP B STREP SCREEN Completed 10/20/2024 HIV SCREENING Completed 11/01/2024, 06/29/2024 HIB VACCINE Aged Out No longer eligi ble based on patient's age to complete this topic HPV VACCINE Aged Out No longer eligi ble based on patient's age to complete this topic MENINGOCOCCAL (Group B) VACCINE SHARED DECISION-MAKING Aged Out No longer eligible based on patient's age to complete this topic MENINGOCOCCAL GROUPS A/C/Y/W VACCINE Aged Out No longer eligible based on patient's age to complete this topic PNEUMOCOCCAL VACCINE Aged Out No long er eligible based on patient's age to complete this topic Respiratory Syncytial Virus (RSV) Vaccine Pt: or over 60 yrs (No Doses Required) Completed Procedures Procedure Name Priority Date/Time Associated Diagnosis Comments SONOGRAM - COMPLETE Routine 11/13/2024 1 2:54 PM CDT [facility] of high-risk of young multigravida Amniotic band in second trimester, single or unspecified fetus Uterine synechiae SONOGRAM - LIMITED Routine 10/23/2024 8: 04 AM EXPERIMENTAL ROCKET SLED MECHANIC CHLAMYDIA + GC AMPLIFIED PROBE STAT 10/20/2024 11:30 PM EXPERIMENTAL ROCKET SLED MECHANIC URINALYSIS REFLEX MICROSCOPIC REFLEX CULTURE STAT 10/20/2024 11:29 PM EXPERIMENTAL ROCKET SLED MECHANIC BLOOD TYPE VERIFICATION Routine 10/20/2024 8:09 PM EXPERIMENTAL ROCKET SLED MECHANIC TYPE + SCREEN PANEL STAT 10/20/2024 7 :12 PM EXPERIMENTAL ROCKET SLED MECHANIC PTT STAT 10/20/2024 7:12 PM EXPERIMENTAL ROCKET SLED MECHANIC PT-INR STAT 10/20/2024 7:12 PM EXPERIMENTAL ROCKET SLED MECHANIC FIBRINOGEN ACTIVITY STAT 10/20/2024 7 :12 PM EXPERIMENTAL ROCKET SLED MECHANIC COMPREHENSIVE METABOLIC PANEL STAT 10/20/2024 7:12 PM EXPERIMENTAL ROCKET SLED MECHANIC CBC W AUTO DIFFERENTIAL STAT 10/20/2024 7:12 PM EXPERIMENTAL ROCKET SLED MECHANIC CULTURE STREP B STAT 10/20/2024 6:54 PM EXPERIMENTAL ROCKET SLED MECHANIC SONOGRAM - COMPLETE Routine 10/13/2024 1 2:49 PM EXPERIMENTAL ROCKET SLED MECHANIC [facility] of high-risk of young multigravida Amniotic band in second trimester, single or unspecified fetus Uterine synechiae SONOGRAM - COMPLETE Routine 09/12/2024 1 :50 PM EXPERIMENTAL ROCKET SLED MECHANIC [facility] of high-risk of young multigravida Amniotic band in second trimester, single or unspecified fetus Uterine synechiae from Last 3 Months Results * SONOGRAM - COMPLETE (11/13/2024 12:54 PM CDT) Only the most recent of3 resultswithin the time period is included. Linked Results Indication ======== Suspected synechiae vs Amniotic band on outside ultrasound IVF (transfer on 04/26) Short interpregnancy interval Class II obesity Hospitalized for labor on 10/20/24 History ====== Past surgical history Gastric sleeve, 2021 OB History 2. Para 1 1. miscarriage. Details: G1-G5 2. [...] 5 lb Method ====== Transabdominal ultrasound. View: Sufficient ========= Null . Number of fetuses: 1 Dating ====== Date Details Gest. age AURY Stated AURY 31 w + 4 d 01/11/2025 U/S 11/13/2024 based upon AC, BPD, Femur, HC 30 w + 6 d 01/16/2025 Assigned dating based on stated AURY, selected on 09/12/2024 31 w + 4 d 01/11/2025 General Evaluation Cardiac activity present. FHR 141 bpm. Presentation: breech Placenta: Placental site: anterior Umbilical cord: Cord vessels: 3 vessel cord. Insertion site: normal insertion Amniotic fluid: Amount of AF: normal. MVP 4.6 cm. HAYLEE 13.8 cm. Q1 4.6 cm, Q2 2.2 cm, Q3 4.3 cm, Q4 2.7 cm Biometry BPD 74.6 mm 29w 6d 5% Hadlock HC 282.0 mm 30w 6d 6% Hadlock AC 278.3 mm 31w 6d 57% Hadlock Femur 59.4 mm 31w 0d 21% Hadlock Humerus 52.4 mm 30w 4d 24% Kelsey HC / AC 1.01 Weight Calculation: EFW 1,747 g 31% Hadlock EFW (lb,oz) 3 lb 14 oz EFW by Hadlock ([id number]) appropriate Growth Overview Exam date GA BPD (mm) HC (mm) AC (mm) FL (mm) HL (mm) EFW (g) 09/12/2024 22w 5d 50.7 7% 196.2 9% 190.5 76% 38.4 26% 33.4 10% 547 52% 10/13/2024 27w 1d 66.4 26% 256.7 46% 240.6 78% 47.3 7% 43.5 13% 1074 49% 11/13/2024 31w 4d 74.6 5% 282 6% 278.3 57% 59.4 21% 52.4 24% 1747 31% Anatomy The following structures appear normal: Abdomen Stomach. Kidneys. Bladder. Spine Lumbar spine. Sacral spine. The following structures were documented previously: Head / Neck Cranium. Lateral ventricles. Choroid plexus. Midline falx. Cavum septi pellucidi. Cerebellum. Cisterna magna. Thalami. Nuchal fold. Face Lips. Profile. Nose. Nasal bone. Orbits. Heart / Thorax 4-chamber view. RVOT view. LVOT view. 3-vessel view. 3-mleovk-oyrxxox view. Situs. Aortic arch view. Bicaval view. Ductal arch view. Great vessels. Right lung. Left lung. Diaphragm. Abdomen Cord insertion. Bowel. Genitals. Spine Cervical spine. Thoracic spine. Extremities / Skeleton Arms. Hands. Legs. Feet. sex: female. Impression ========= Single, live, intrauterine at 31w 4d size is appropriate Amniotic fluid volume: normal No major malformations were seen within the limitations of ultrasound Follow-up ======== Follow up ultrasound in 4 weeks for growth assessment The patient states that she is scheduled for weekly BPP and NST at her primary OB office beginning next week Coding ====== Procedures [id number]: US Preg Uterus Follow Up [facility] PACS Anatomical Region Laterality Modality Other 11/13/2024 12:5 4 PM CDT R Panchito Hurtado MD [facility] ORDERABLES * SONOGRAM - LIMITED (10/23/2024 8:04 AM EXPERIMENTAL ROCKET SLED MECHANIC) Linked Results Indication ======== Suspected intrauterine bleeding on outside ultrasound Threatened labor Suspected synechiae vs amniotic band on outside ultrasound IVF (transfer on 04/26) Marginal placental cord insertion Short interpregnancy interval Class II obesity Incomplete spine imaging History ====== Past surgical history Gastric sleeve, 2021 OB History 2. Para 1 1. miscarriage. Details: G1-G5 2. [...] 5 lb Method ====== Transabdominal ultrasound. View: Sufficient ========= Null . Number of fetuses: 1 Dating ====== Date Details Gest. age AURY Stated AURY 28 w + 4 d 01/11/2025 Assigned dating based on stated AURY, selected on 09/12/2024 28 w + 4 d 01/11/2025 General Evaluation Cardiac activity present. FHR 133 bpm. Presentation: cephalic Placenta: Placental site: anterior Umbilical cord: Cord vessels: 3 vessel cord - previously documented. Insertion site: marginal insertion Amniotic fluid: Amount of AF: normal. HAYLEE 13.6 cm. Q1 4.7 cm, Q2 3.0 cm, Q3 3.6 cm, Q4 2.3 cm Anatomy The following structures appear normal: Abdomen Stomach. Kidneys. Bladder. The following structures could not be adequately visualized: Spine Lumbar spine. Sacral spine. The following structures were documented previously: Head / Neck Cranium. Lateral ventricles. Choroid plexus. Midline falx. Cavum septi pellucidi. Cerebellum. Cisterna magna. Thalami. Nuchal fold. Face Lips. Profile. Nose. Nasal bone. Orbits. Heart / Thorax 4-chamber view. RVOT view. LVOT view. 3-vessel view. 5-qxxqyp-vklrpfi view. Situs. Aortic arch view. Bicaval view. Ductal arch view. Great vessels. Right lung. Left lung. Diaphragm. Abdomen Cord insertion. Genitals. Spine Cervical spine. Thoracic spine. Extremities / Skeleton Arms. Hands. Legs. Feet. sex: female. Impression ========= 1) Null gestation, 28w 4d 2) The amniotic fluid volume is within normal limits 3) The marginal placental cord insertion site is again noted 4) There is no sonographic evidence of retroplacental or other intrauterine bleeding 5) The thin right-sided band I identified on an informal scan I performed 2 days ago was not identified 6) No abnormalities have been detected on anatomic survey 7) Imaging of the lumbosacral spine was again suboptimal, secondary to positioning Comment ======== The patient was inpatient at the time of the study Follow-up ======== 1) Ongoing management as deemed appropriate by the inpatient [facility] team 2) Follow-up ultrasound in ~2 weeks to reevaluate growth and complete spine imaging Coding ====== Procedures [id number]: US Uterus Limited [facility] [facility] [place] PACS Anatomical Region Laterality Modality Other 10/23/2024 8:04 AM EXPERIMENTAL ROCKET SLED MECHANIC Ginny Katz MD [facility] ORDERABLES * CHLAMYDIA + GC AMPLIFIED PROBE (10/20/2024 11:30 PM EXPERIMENTAL ROCKET SLED MECHANIC) Chlamydia Amplified Probe Negative Negative 10/21/2024 7:36 PM EXPERIMENTAL ROCKET SLED MECHANIC [facility] GC Amplified Probe Negative Negative 10/21/2024 7:36 PM EXPERIMENTAL ROCKET SLED MECHANIC [facility] Microbiology URINE / Unknown Collection / Unknown 10/20/2024 11:30 PM EXPERIMENTAL ROCKET SLED MECHANIC 10/20/2024 11:57 PM EXPERIMENTAL ROCKET SLED MECHANIC Narrative [facility] - 10/21/2024 7:36 PM EXPERIMENTAL ROCKET SLED MECHANIC Results based on detection/no detection of ribosomal RNA by amplified method. Ginny Katz MD LAB - MICROBIOLOGY ORDERABLES Performing Organization Address [facility]/ZIP Co de Phone Number [facility] [address] [place] [address], [facility] [phone] * (ABNORMAL) URINALYSIS REFLEX MICROSCOPIC REFLEX CULTURE (10/20/2024 11:29 PM EXPERIMENTAL ROCKET SLED MECHANIC) Color UA Yellow Yellow, Straw 10/21/2024 12:07 AM [facility] Clarity UA Clear Clear 10/21/2024 12:07 AM [facility] Glucose UA Normal Normal 10/21/2024 12:07 AM EXPERIMENTAL ROCKET SLED MECHANIC [facility] Bilirubin UA Negative Negative 10/21/2024 12:07 AM [facility] Ketone UA 2+(A) Negative 10/21/2024 12:07 AM EXPERIMENTAL ROCKET SLED MECHANIC [facility] Specific [place] UA 1.017 1.005 - 1.030 10/21/2024 12:07 AM EXPERIMENTAL ROCKET SLED MECHANIC [facility] Blood UA Negative Negative 10/21/2024 12:07 AM [facility] pH UA 7.5 5.0 - 9.0 pH 10/21/2024 12:07 AM EXPERIMENTAL ROCKET SLED MECHANIC [facility] Protein UA Negative Negative 10/21/2024 12:07 AM [facility] Urobilinogen UA 3.0(A) Normal mg/dL 025 12:07 AM [facility] Nitrite UA Negative Negative 10/21/2024 12:07 AM EXPERIMENTAL ROCKET SLED MECHANIC [facility] Leukocyte UA Negative Negative 10/21/2024 12:07 AM [facility] Urine URINE SPECIMEN OBTAINED BY CLEAN CATCH PROCEDURE / Unknown Collection / Unknown 10/20/2024 11:29 PM EXPERIMENTAL ROCKET SLED MECHANIC 10/20/2024 11:57 PM EXPERIMENTAL ROCKET SLED MECHANIC Narrative [facility] - 10/21/2024 12:07 AM EXPERIMENTAL ROCKET SLED MECHANIC Ginny Katz MD LAB - URINALYSIS OR DERABLES [facility] [address] [place] [address] * BLOOD TYPE VERIFICATION (10/20/2024 8:09 PM EXPERIMENTAL ROCKET SLED MECHANIC) ABO Rh A POS 10/20/2024 9:2 1 PM EXPERIMENTAL ROCKET SLED MECHANIC [facility] Blood Bank BLOOD SPECIMEN / Unknown Lab Venipuncture / Unknown 10/20/2024 8:09 PM EXPERIMENTAL ROCKET SLED MECHANIC 10/20/2024 8:13 PM EXPERIMENTAL ROCKET SLED MECHANIC Ginny Katz MD LAB - BLOOD BANK OR DERABLES Performing Organization Address [facility] Co de Phone Number [facility] [address] [place] [address] * TYPE + SCREEN PANEL (10/20/2024 7:12 PM EXPERIMENTAL ROCKET SLED MECHANIC) ABO Rh A POS 10/20/2024 8:28 PM EXPERIMENTAL ROCKET SLED MECHANIC [facility] Comment:No history; collect retype. Antibody Screen NEG 8:28 PM EXPERIMENTAL ROCKET SLED MECHANIC [facility] Blood Bank BLOOD SPECIMEN / Unknown Lab Venipuncture / Unknown 10/20/2024 7:12 PM EXPERIMENTAL ROCKET SLED MECHANIC 10/20/2024 7:41 PM EXPERIMENTAL ROCKET SLED MECHANIC Ginny Katz MD LAB - BLOOD BANK OR DERABLES Performing Organization Address [facility] Co de Phone Number [facility] [address] [place] [address] * (ABNORMAL) FIBRINOGEN ACTIVITY (10/20/2024 7:12 PM EXPERIMENTAL ROCKET SLED MECHANIC) Fibrinogen 450(H) 200 - 400 mg/dL 10/20/2024 7:58 PM EXPERIMENTAL ROCKET SLED MECHANIC [facility] Blood BLOOD SPECIMEN / Unknown Lab Venipuncture / Unknown 10/20/2024 7:12 PM EXPERIMENTAL ROCKET SLED MECHANIC 10/20/2024 7:41 PM EXPERIMENTAL ROCKET SLED MECHANIC Ginny Katz MD LAB - COAGULATION O RDERABLES Performing Organization Address City/[facility]/ZIP Co de Phone Number [facility] [address] [place] [phone] * PTT (10/20/2024 7:12 PM EXPERIMENTAL ROCKET SLED MECHANIC) PTT 29.9 23.0 - 38.4 sec 10/20/2024 7:57 PM EXPERIMENTAL ROCKET SLED MECHANIC [facility] Blood BLOOD SPECIMEN / Unknown Lab Venipuncture / Unknown 10/20/2024 7:12 PM EXPERIMENTAL ROCKET SLED MECHANIC 10/20/2024 7:41 PM EXPERIMENTAL ROCKET SLED MECHANIC Narrative [facility] - 10/20/2024 7:57 PM EXPERIMENTAL ROCKET SLED MECHANIC Heparin Therapeutic Range for PTT: 69.0 - 110.0 seconds. Ginny Katz MD LAB - COAGULATION O CLEMENTE Performing Organization Address [facility] Co de Phone Number [facility] [address] [place] [phone] * PT-INR (10/20/2024 7:12 PM EXPERIMENTAL ROCKET SLED MECHANIC) Pathologist [facility] PT 13.7 12.1 - 14.8 sec 10/20/2024 7:57 PM EXPERIMENTAL ROCKET SLED MECHANIC [facility] INR 1.0 0.9 - 1.1 10/20/2024 7:57 PM EXPERIMENTAL ROCKET SLED MECHANIC [facility] Blood BLOOD SPECIMEN / Unknown Lab Venipuncture / Unknown 10/20/2024 7:12 PM EXPERIMENTAL ROCKET SLED MECHANIC 10/20/2024 7:41 PM EXPERIMENTAL ROCKET SLED MECHANIC Narrative [facility] - 10/20/2024 7:57 PM EXPERIMENTAL ROCKET SLED MECHANIC Conventional Warfarin Anticoagulant Therapy: INR Reference Range: 2.0-3.0 Intensive Warfarin Anticoagulant Therapy: INR Reference Range: 2.5-3.5 Ginny Katz MD LAB - COAGULATION O CLEMENTE Performing Organization Address [facility] Co de Phone Number [facility] [address] [place] [address] [phone] * (ABNORMAL) CBC W AUTO DIFFERENTIAL (10/20/2024 7:12 PM EXPERIMENTAL ROCKET SLED MECHANIC) WBC 8.4 4.0 - 10.7 x10E9/L 10/20/2024 7:49 PM [facility] RBC Count 3.91 3.90 - 5.20 x10E12/L 10/20/2024 7:49 PM [facility] Hemoglobin 9.6(L) 11.9 - 15.8 g/dL 10/20/2024 7:49 PM [facility] Hematocrit 31.1(L) 34.8 - 46.1 % 10/20/2024 7:49 PM [facility] MCV 79.5(L) 80.0 - 98.0 fL 10/20/2024 7:49 PM [facility] MCH 24.6(L) 26.7 - 33.6 pg 10/20/2024 7:49 PM [facility] MCHC 30.9(L) 31.7 - 36.3 g/dL 10/20/2024 7:49 PM [facility] RDW-CV 16.2(H) 11.3 - 14.8 % 10/20/2024 7:49 PM [facility] Platelet Count 232 150 - 420 x10E9/L 10/20/2024 7:49 PM [facility] MPV 11.8(H) 7.8 - 11.4 fL 10/20/2024 7:49 PM [facility] Neutrophil % 79.3(H) 41.0 - 74.0 % 10/20/2024 7:49 PM [facility] Lymphocyte % 13.9(L) 17.0 - 47.0 % 10/20/2024 7:49 PM [facility] Monocyte % 5.7 3.0 - 11.0 % 10/20/2024 7:49 PM [facility] Eosinophil % 0.5 0.0 - 7.0 % 10/20/2024 7:49 PM [facility] Basophil % 0.1 0.0 - 1.6 % 10/20/2024 7:49 PM [facility] Immature Granulocytes % 0.5 0.0 - 1.0 % 10/20/2024 7:49 PM [facility] Neutrophil Absolute 6.63 1.60 - 7.50 x10E9/L 10/20/2024 7:49 PM [facility] Lymphocyte Absolute 1.16 1.00 - 4.40 x10E9/L 10/20/2024 7:49 PM [facility] Monocyte Absolute 0.48 0.15 - 1.00 x10E9/L 10/20/2024 7:49 PM [facility] Eosinophil Absolute 0.04 0.00 - 0.60 x10E9/L 10/20/2024 7:49 PM [facility] Basophil Absolute 0.01 0.00 - 0.13 x10E9/L 10/20/2024 7:49 PM [facility] Blood BLOOD SPECIMEN / Unknown Lab Venipuncture / Unknown 10/20/2024 7:12 PM EXPERIM[employer]AL ROCKET SLED MECHANIC 10/20/2024 7:41 PM EXPERIMENTAL ROCKET SLED MECHANIC Ginny Katz MD LAB - HEMATOLOGY OR DERABLES [facility] [address] [place] [address] * (ABNORMAL) COMPREHENSIVE METABOLIC PANEL (10/20/2024 7:12 PM [facility]) Pathologist [facility] Glucose 74 70 - 99 mg/dL 10/20/2024 8:04 PM [facility] Sodium 135(L) 136 - 145 mmol/L 10/20/2024 8:04 PM [facility] Potassium 3.6 3.5 - 5.1 mmol/L 10/20/2024 8:04 PM [facility] Chloride 106 98 - 107 mmol/L 10/20/2024 8:04 PM [facility] CO2 23 22 - 29 mmol/L 10/20/2024 8:04 PM [facility] Calcium 8.4 8.4 - 10.4 mg/dL 10/20/2024 8:04 PM [facility] Anion Gap 6 6 - 16 mmol/L 10/20/2024 8:04 PM [facility] BUN 4(L) 5.3 - 18.7 mg/dL 10/20/2024 8:04 PM [facility] Creatinine 0.50(L) 0.57 - 1.11 mg/dL 10/20/2024 8:04 PM [facility] Alkaline Phosphatase 69 40 - 150 U/L 10/20/2024 8:04 PM [facility] ALT 8 0 - 55 U/L 10/20/2024 8:04 PM EXPERIMENTAL ROCKET SLED MECHANIC [facility] AST 11 5 - 34 U/L 10/20/2024 8:04 PM [facility] Protein Total 6.2(L) 6.4 - 8.3 gm/dL 10/20/2024 8:04 PM [facility] Albumin 2.9(L) 3.4 - 5.0 gm/dL 10/20/2024 8:04 PM [facility] Bilirubin Total 0.2 0.2 - 1.2 mg/dL 10/20/2024 8:04 PM [facility] eGFR by CKD-EPI >90 >=90 mL/min/1.7 3 m2 10/20/2024 8:04 PM [facility] Blood BLOOD SPECIMEN / Unknown Lab Venipuncture / Unknown 10/20/2024 7:12 PM EXPERIMENTAL ROCKET SLED MECHANIC 10/20/2024 7:41 PM EXPERIMENTAL ROCKET SLED MECHANIC Ginny Katz MD LAB - CHEMISTRY ORD ERABLES Performing Organization Address City/[facility]/ZIP Co de Phone Number [facility] [address] [place] [address] * CULTURE STREP B (10/20/2024 6:54 PM EXPERIMENTAL ROCKET SLED MECHANIC) Pathologist [facility] Culture Strep B Negative for beta-hemolytic Streptococcus Group B LESA 10/24/2024 6:52 AM EXPERIMENTAL ROCKET SLED MECHANIC [facility] Microbiology MISCELLANEOUS SAMPLES / Unknown Collection / Unknown 10/20/2024 6:54 PM EXPERIMENTAL ROCKET SLED MECHANIC 10/20/2024 7:23 PM EXPERIMENTAL ROCKET SLED MECHANIC Ginny Katz MD LAB - MICROBIOLOGY ORDERABLES Performing Organization Address City/[facility]/ZIP Co de Phone Number [facility]CRO[facility] [address] [place] [address], [facility] [phone] from Last 3 Months Advance Directives * Full Code (Latest Code Status on File) Date Activated Date Inactivated Comments 10/20/2024 6:44 PM 10/23/2024 3:47 PM Care Teams Printing Press Machinist Relationship Specialty Start Date End Date Namita Saini, LABORER [employer] ENGINE[employer] [address] [place] [address] PCP - General Nurse Practitioner 03/07/20
--- OUTSIDE RECORDS SUMMARY | 2024-11-25 22:47 | XMS_ITS | Data Portability ---
Author Organization [facility] Nia [facility] Address [address] [place] [address] Care Team Providers Care Nut Packer Name Role Phone AGNIE GOLDBERG Family Medicine Assessment No assessment recorded. Plan of Treatment Reminders Order Date Submit Date Provider Last Modified By Organization Details Last Modified Time Details Appointments None recorded. Lab PPD (purified protein derivative ), skin test 2019 020 CASTOR In-Office Order, Internal Use Only DO Not Attach Compendium DO Not Attach Compendium, Do Not Delete/merge, [id number] 14:38:34 PPD (purified protein derivative ), skin test 2019 020 KENJI In-Office Order, Internal Use Only DO Not Attach Compendium DO Not Attach Compendium, Do Not Delete/merge, [id number] 0 12:52:46 Referral None recorded. Procedures None recorded. Surgeries None recorded. Imaging XR, foot, 3 or more view 2019 020 [facility] (Radiology), [facility] [place], [address], 0 11:45:05 Medication Orders Qsymia 3.75 mg-23 mg capsule, extended release [address] [facility] [address] [place], [address], 0 14:38:09 Qsymia 7.5 mg-46 mg capsule, extended release 2019 020 [email or web address] [facility] [address] [place], [address], 0 14:38:17 phentermin e 15 mg capsule 2019 020 INTERFACE [facility] [address] [place], [address], 0 12:55:28 Tubersol 5 tub. unit/0.1 mL intraderma l injection solution 2019 020 [facility] [address] [place], [address], 0 16:11:46 Tubersol 5 tub. unit/0.1 mL intraderma l injection solution 2019 020 [facility] [address] [place], [address], 0 16:11:46 Patient TargetsNo targets recorded. Patient Instructions Encounter Date Encounter Id Patient Instructions Last Modified By Organization Details Last Modified Time 03/07/2020 [id number] A healthy lifestyle: care instructions [email or web address] Not available 03/09/2020 15:50:24 Reason for Referral None Reported. Results Created Date Observation Date Name Description Value Unit Range Abnormal Flag Note LastModifiedBy Organization Detail LastModifiedTime 03/11/2003/11/2020 PPD (kush fied prote in deriv ative ), skin test Result Negati ve Not Available In-Office Order Internal Use Only DO Not Attach Compendium DO Not Attach Compendium, Do Not Delete/merge, [id number] 03/08/2020 11:47:39 03/21/2003/21/2020 PPD (kush fied prote in deriv ative ), skin test Result Negati ve Not Available In-Office Order Internal Use Only DO Not Attach Compendium DO Not Attach Compendium, Do Not Delete/merge, [id number] 03/18/2020 15:04:31 04/18/20 20 04/17/2020 XR, foot, 3 or more view No observ ation record ed. [email or web address] Not Available 2019 16:15:58 Result Notes None recorded. Problems Name Problem SNOMED Code Status Onset Date Resolution Date Notes Provider Name and Address Organization Details Recorded Time Anxiety 83591978 Active 018 Austin Castellano LPN null, [place] - [facility] 8 09:22:03 Depressive disorder 76748563 Active 018 Austin Castellano LPN [place], [place] [facility] 8 09:22:08 Vitamin D deficiency 71209980 Active 020 Angie Tompkinser [place], [place] [facility] 0 09:45:46 Iron deficiency 91430032 Active 020 Angie Tompkinser null, [place] - [...] Name and Address Organization Details Recorded Time 690728 latex environme nt,medica tion rash Not available Not available 05/03/2018 90705 91 RxNorm Not Available Not Available Not Available 599212 Product containin g penicilli n (product) medicatio n vomiting Not available Not available 05/03/2018 21491 8001 SNOMED Not Available Not Available Not [...] Not Available Not Available Not Available Afluria 8214-2000 (PF) 45 mcg(15 mcg x 3)/0.5 mL intramuscul ar syringe 05/03 completed Not Available Not Available Not Available Vitals Date Recorded Body height Body mass index (BMI) Body weight Heart rate Respiratory rate Systolic blood pressure Diastolic blood pressure Systolic blood pressure Diastolic blood pressure Provider Name and Address Organization Details Last Updated DateTime 0 163.83 cm 51.5 kg/m2 713786. 67 g 80 /min 20 /min 118 mm[Hg] 74 mm[Hg] 118 mm[Hg] 68 mm[Hg] Austin Castellano LPN [place] - [facility] 0 10:02:16 Date Recorded Body height Body mass index (BMI) Body weight Heart rate Respiratory rate Systolic blood pressure Diastolic blood pressure Provider Name and Address Organization Details Last Updated DateTime 0 163.83 cm 52.3 kg/m2 140701. 48 g 72 /min 18 /min 114 mm[Hg] 68 mm[Hg] Austin Castellano LPN [facility] 0 16:11:13 Social History Question Answer Notes LastModified by Organizat ion Details LastModified Time Tobacco Smoking Status Never Smoker Austin Castellano LPN [facility] 05/03/2018 09:23:44 What Is Your [...] available 2017 09:22:57 Mother Heart failure 50 [email or web address] Not available 05/03 09:43:47 Mother Atrial fibrillation [...] SNOMED-CT Code Diagnosis ICD10 Code Diagnosis Note [id number] [facility] [place] [facility] [address] [place] [address] 05/03/2018 09:13:07 05/03/2018 10:31:51 Intermittent palpitations 342845336 R00.2 05/03/18 c/o intermitte nt palpitatio ns starting in November of this year after starting a second job. Gets 4-5 hours of sleep per night. Cut out caffeine a couple months ago without change in symptoms. Symptoms do not occur with exercise and does not wake from sleep. Seen in [place] ED with a negative cardiac workup on [...] SOB, nausea, diaphoresi s, or syncope. Fatigue 63092814 R53.83 05/03/18 c/o chronic fatigue, but worsened since starting a second job in November of this year. c/o hair loss. Will check TSH a test as she is not trying to prevent . Encouraged to get 7-8 hours of sleep per night. Localized swelling, mass and lump, lower limb 110472868 R22.41 9/4/18 approximat e 1 cm fluctuant mass noted to right anterior patellar area. No swelling or erythema noted to knee. Good ROM. Pressure on area does not increase pain. Will order an ultrasound to determine cause of mass. [id number] Angie [place] [address] [place] [address] 07/25/2018 10:52:16 07/25/2018 12:58:57 Mixed anxiety and depressive disorder 539114369 F41.8 07/25/18 c/o anxiety for many years and greatly increased for the past month. States makes her hands start to tingle. Denies any changes when this started. States she recently quite her job at [employer] to cut out some of her stress. [...] or sooner if any concerns. Vaginal discharge 505115 006 N89.8 07/25/18 c/o watery vaginal discharge x 2 weeks with an occasional odor to it. Denies any color to discharge, any itching or sores. Denies exposure to STIs. Discussed likely bacterial vaginosis. Will treat empiricall y. Discussed to abstain from intercours e until finished with treatment. Removal of suture 253508 01 Z48.02 07/25/18 States she was told to f/u here for suture removal in 14 days. Today is day 13. Removed 3 sutures and wound started to come apart. Steri striped and instructed to RTC in 7 days and we will remove the rest of the sutures and apply more steri strips. [id number] Angie [place] [address] [place] [address] 08/22/2018 08:32:48 08/22/2018 08:51:08 Depressive disorder 42088841 F32.9 Mixed anxi ety and depressive disorder 731428521 F41.8 07/25/18 c/o anxiety for many years and greatly increased for the past month. States makes her hands start to tingle. Denies any changes when this started. States she recently quite her job at [employer] to cut out some of her stress. [...] a recheck or sooner if any concerns. [id number] Angie [place] [facility] [address] [place] [address] 08/24/2018 15:36:01 08/24/2018 16:31:55 Viral gastroenteritis 312869019 A08.4 08/24/18 c/o diarrhea and vomiting and cold chills since 0300 this morning. c/o epigastric pain. Not able to keep anything down. States within 5 minutes after taking sips of anything it comes back up. States has aunt and cousin with similar s/s and they were together yesterday for [place]. States about 30 minutes before getting here [...] 1-2 days or sooner if any concerns. [id number] Angie [place] [facility] [address] [place] [address] 11/23/2018 15:39:38 11/23/2018 16:16:48 Mixed anxiety and depressive disorder 814987553 F41.8 07/25/18 c/o anxiety for many years and greatly increased for the past month. States makes her hands start to tingle. Denies any changes when this started. States she recently quite her job at [employer] to cut out some of her stress. [...] any concerns. Irritable bowel syndrome with diarrhea 111543746 K58.0 11/23/18 c/o frequent loose stools especially [...] for recheck or sooner if any concerns. [id number] Angie [place] [facility] [address] [place] [address] 01/24/2019 15:31:27 01/24/2019 17:15:25 Mixed anxiety and depressive disorder 164041785 F41.8 07/25/18 c/o anxiety for many years and greatly increased for the past month. States makes her hands start to tingle. Denies any changes when this started. States she recently quite her job at [employer] to cut out some of her stress. [...] any concerns. Dysfunctio n of eustachian tube 34447544 H68.011 01/24/19 c/o burning sensation to right [...] for recheck or sooner if any concerns. [id number] Angie [place] [facility] [address] [place] [address] 03/01/2019 15:49:41 03/01/2019 16:49:38 Pruritic rash 12292592 L28.2 03/01/19 c/o rash to bilateral legs [...] or sooner if any worsening or concerns. [id number] MD Jennifer Iverson [facility] [address] [place] [address] 10/11/2019 10:57:50 10/11/2019 13:01:13 Irritable bowel syndrome with diarrhea 578976351 K58.0 11/23/18 c/o frequent loose stools especially [...] to trial. Dysfunctio n of eustachian tube 47181608 H68.011 01/24/19 c/o burning sensation to right [...] sooner if any worsening or concerns. Fatigue 17572496 R53.83 05/03/18 c/o chronic fatigue, but worsened [...] labs and go from there. HIV screening 187037153 Z11.4 [id number] Angie [place] [address] [place] [address] 01/01/2020 13:05:19 01/01/2020 15:19:26 Mixed insomnia 53217411 G47.09 01/01/2020 phone visit for f/u of [...] or sooner if any worsening or concerns. [id number] Angie [place] [address] [place] [address] 03/07/2020 09:51:27 03/07/2020 11:07:42 Adult health examination 735391005 Z00.00 03/06/20: Here for a school physical. Exam within normal limits. Required form completed and given to patient. Advised her to RTC for TB skin test. Body mass index 40+ - severely obese 772394179 Z68.43 Morbid obesity 828320109 E66.01 [id number] RAKESH Lucero [facility] [address] [place] [address] 03/08/2020 11:30:25 03/08/2020 11:47:54 Tuberculosis screening 743767102 Z11.1 [id number] Austin CastellanoRAKESH HC [address] [place] [address] 03/11/2020 13:59:33 03/11/2020 14:13:58 [id number] RAKESH Lucero [address] [place] [address] 03/18/2020 14:45:31 03/18/2020 14:58:58 Tuberculosis screening 790002326 Z11.1 [id number] Angie Schulza [address] [place] [address] 04/17/2020 15:49:33 04/17/2020 16:46:49 Pain in left foot 4890656563 27115 M79.672 04/17/2020 c/o pain to left ventral foot x 1.5 weeks after pushing concrete stairs back and felt a pop. Able to walk but this increases the pain. REBECCA wrap applied. Advised RICE, ibuprofen as directed and will check an xray to make sure there is no stress fx. Body mass index 40+ - severely obese 081335067 Z68.43 04/17/2020 Interested in weight loss. Has been working out a few times per week and trying to decrease carbs and cut out sweet drinks altogether but this does not seem to be doing anything. No longer trying to get at this point. Waiting until after the wedding. Discussed journaling intake using one of the free apps (iTrack Bites, SnapteeP al, etc), decreasing carbs, and making sure [...] Barlow Member ID Guarantor Name 03/07/2020 1 [facility] [id number] [facility] [id number] 3 [facility] 03/08/2020 1 [facility] [id number] [facility] [id number] 3 [facility] 03/11/2020 1 [facility] [id number] [facility] [id number] 3 [facility] 03/18/2020 1 [facility] [id number] [facility] [id number] 3 Kailey [facility] 04/17/2020 1 [facility] [id number] [facility] [id number] 3 Kailey [facility] Notes Date Note Type Note Provider Name [...]
--- OUTSIDE RECORDS SUMMARY | 2024-11-25 22:47 | XMS_ITS | Encounter Summary ---
Author Organization [facility] Address [facility] [place] [address] Care Team Providers Care Digital Experience Manager Name Role Phone Guille Ball MD Unavailable Unavailable Mary Jane Miner NEON SIGN INSTALLER Primary Care Provider [phone] Claudia Green MD Unavailable Encounter Details Date Type Department Care Team (Late st Contact Info) Description 02/04/[address] 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
[2024-11-25 23:02] VITALS: BP 126/71; PULSE 71
[2024-11-25 23:15] VITALS: BP 126/75; PULSE 86
[2024-11-25 23:30] VITALS: BP 117/70; PULSE 76
[2024-11-25 23:42] LABS: Add Urine Microscopic? YES; Appearance Urine Cloudy (Clear); Bacteria Urine 2+ /hpf; Bilirubin Urine Negative (Negative); Blood Urine 1+ (Negative); Color Urine Yellow (Yellow); Glucose Urine UA Negative (Negative); Ketones Urine 2+ mg/dL (Negative); Leukocyte Esterase Ur 1+ LEU/UL (Negative); Need Manual Microscopic Reviewed; Nitrate Urine Negative (Negative); Non Pathogenic Casts 0-2; Protein Urine Trace mg/dL (Negative); RBC Urine 0-2 /hpf (0-2); Specific Grav Ur 1.018 (1.001-1.035); Squamous Epithelial Cell Urine Occasional /hpf (Few); WBC Urine 21-50 /hpf (0-3)
[2024-11-25 23:45] VITALS: BP 116/71; PULSE 77
[2024-11-26] VITALS: BP 119/71; PULSE 80
[2024-11-26 00:04] VITALS: BMI 37.0
--- NOTE | 2024-11-26 00:05 | OBADM ---
This patient, Kailey Webster, admitted to the OB room OB Post 116 for observation. Patient/family oriented to hospital policies and general routines including ID bracelet, bed and alarms, visiting hours, pain management, procedures, bathroom and other care routines, personal items, smoking policy, room service/diet, and visiting hours. Patient/Family are encouraged to report perceived risks to care and to ask questions if they do not understand what they are told or what they should do.
[2024-11-26 00:15] VITALS: BP 116/66; PULSE 77
--- NOTE | 2024-12-23 21:41 | PM.OBTRLD ---
OB - Triage/Final Diagnosis Visit Information Comments/Additional reasons for admission: I have assessed the risk for this patient, Kailey Webster, and determined that she would benefit from observation care. Evaluation Laboratory results: Laboratory Tests 11/25/24 22:50 Urine Color Yellow Urine Appearance Cloudy H Urine pH 6.0 Ur Specific [place] 1.018 Urine Protein Trace Urine Glucose (UA) Negative Urine Ketones 2+ H Ur Blood (Man) 1+ H Urine Nitrate Negative Urine Bilirubin Negative Urine Urobilinogen 1.0 Add Ur Microanalysis Reviewed Leukocyte Esterase Rfl 1+ H Urine RBC 0-2 Urine WBC 21-50 H Ur Squamous Epith Cells Occasional Urine Bacteria 2+ H Urine Casts 0-2 Final Diagnosis (1) Vaginal bleeding during : Code(s): O46.90 - Antepartum hemorrhage, unspecified, unspecified trimester Status: Acute
== END 2024-11-26 00:30 | disposition home or self-care (01) ==
PROVIDERS: Admitting Provider Obstetrics & Gynecology; Visit Provider Obstetrics & Gynecology
DX: O46.93 Antepartum hemorrhage, unspecified, third trimester (principal); Z3A.33 33 weeks gestation of pregnancy
CPT/HCPCS: 81001; 84112; 87086; G0378; G0379

== ENCOUNTER 2024-12-18 18:35 | Inpatient (IN) | payer OTHER, SELFPAY ==
[2024-12-18] VITALS (60 sets, daily range): BP systolic 113–130; BP diastolic 55–82; PULSE 70–109; O2SAT 98–100; BMI 37.4; BMI 37.0
--- OUTSIDE RECORDS SUMMARY | 2024-12-18 19:05 | XMS_ITS | Data Portability ---
Author Organization [facility] Nia 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 Plan of Treatment Reminders Order Date Submit Date Provider Last Modified By Organization Details Last Modified Time Details Appointments None recorded. Lab PPD (purified protein derivative ), skin test 2019 020 [place] In-Office Order, Internal Use Only DO Not Attach Compendium DO Not Attach Compendium, Do Not Delete/merge, [id number] 0 14:38:34 PPD (purified protein derivative ), skin test 2019 020 [facility] In-Office Order, Internal Use Only DO Not Attach Compendium DO Not Attach Compendium, Do Not Delete/merge, [id number] 0 12:52:46 Referral None recorded. Procedures None recorded. Surgeries None recorded. Imaging XR, foot, 3 or more view 2019 020 [facility] (Radiology), [facility] & [place], [address], 0 11:45:05 Medication Orders Qsymia 3.75 mg-23 mg capsule, extended release [address] [facility] [address] [place], [address], 0 14:38:09 Qsymia 7.5 mg-46 mg capsule, extended release 2019 020 [facility] [address] [place], [address], 0 14:38:17 phentermin e 15 mg capsule 2019 020 INTERFACE [facility] [address] [place], [address], 0 12:55:28 Tubersol 5 tub. unit/0.1 mL intraderma l injection solution 2019 020 [facility] [address] [place], [address], 0 16:11:46 Tubersol 5 tub. unit/0.1 mL intraderma l injection solution 2019 020 [facility] [address] [place], [address], 0 16:11:46 Patient TargetsNo targets recorded. Patient Instructions Encounter Date Encounter Id Patient Instructions Last Modified By Organization Details Last Modified Time 03/07/2020 [id number] A healthy lifestyle: care instructions [email or web address] Not available 03/09/2020 15:50:24 Reason for Referral None Reported. Results Created Date Observation Date Name Description Value Unit Range Abnormal Flag Note LastModifiedBy Organization Detail LastModifiedTime 03/11/2003/11/2020 PPD (kush fied prote in deriv ative ), skin test Result Negati ve Not Available In-Office Order Internal Use Only DO Not Attach Compendium DO Not Attach Compendium, Do Not Delete/merge, [id number] 03/08/2020 11:47:39 03/21/2003/21/2020 PPD (kush fied prote in deriv ative ), skin test Result Negati ve Not Available In-Office Order Internal Use Only DO Not Attach Compendium DO Not Attach Compendium, Do Not Delete/merge, [id number] 03/18/2020 15:04:31 04/18/20 20 04/17/2020 XR, foot, 3 or more view No observ ation record ed. [email or web address] Not Available 2019 16:15:58 Result Notes None recorded. Problems Name Problem SNOMED Code Status Onset Date Resolution Date Notes Provider Name and Address Organization Details Recorded Time Anxiety 66407233 Active 018 Austin Castellano LPN null, [place] - [facility] 8 09:22:03 Depressive disorder 39344742 Active 018 Austin Castellano LPN [place], [place] [facility] 8 09:22:08 Vitamin D deficiency 90404699 Active 020 Angie Tompkinser [place], [place] [facility] 0 09:45:46 Iron deficiency 78111017 Active 020 Angie Tompkinser null, [place] - [...] Name and Address Organization Details Recorded Time 784016 latex environme nt,medica tion rash Not available Not available 05/03/2018 39669 91 RxNorm Not Available Not Available Not Available 478824 Product containin g penicilli n (product) medicatio n vomiting Not available Not available 05/03/2018 73006 8001 SNOMED Not Available Not Available Not [...] Not Available Not Available Not Available Afluria 3394-0705 (PF) 45 mcg(15 mcg x 3)/0.5 mL intramuscul ar syringe 05/03 completed Not Available Not Available Not Available Vitals Date Recorded Body height Body mass index (BMI) Body weight Heart rate Respiratory rate Systolic blood pressure Diastolic blood pressure Systolic blood pressure Diastolic blood pressure Provider Name and Address Organization Details Last Updated DateTime 0 163.83 cm 51.5 kg/m2 664448. 67 g 80 /min 20 /min 118 mm[Hg] 74 mm[Hg] 118 mm[Hg] 68 mm[Hg] Austin Castellano LPN [place] - [facility] 0 10:02:16 Date Recorded Body height Body mass index (BMI) Body weight Heart rate Respiratory rate Systolic blood pressure Diastolic blood pressure Provider Name and Address Organization Details Last Updated DateTime 0 163.83 cm 52.3 kg/m2 789155. 48 g 72 /min 18 /min 114 mm[Hg] 68 mm[Hg] Austin Castellano LPN [facility] 0 16:11:13 Social History Question Answer Notes LastModified by Organizat ion Details LastModified Time Tobacco Smoking Status Never Smoker Austin Castellano LPN [facility] 05/03/2018 09:23:44 What Is Your [...] available 2017 09:22:57 Mother Heart failure 50 [email or web address] Not available 05/03 09:43:47 Mother Atrial fibrillation [...] SNOMED-CT Code Diagnosis ICD10 Code Diagnosis Note [id number] Angie Rodriguez [facility] [address] [place] [address] 05/03/2018 09:13:07 05/03/2018 10:31:51 Intermittent palpitations 880963420 R00.2 05/03/18 c/o intermitte nt palpitatio ns starting in November of this year after starting a second job. Gets 4-5 hours of sleep per night. Cut out caffeine a couple months ago without change in symptoms. Symptoms do not occur with exercise and does not wake from sleep. Seen in [place] ED with a negative cardiac workup on [...] SOB, nausea, diaphoresi s, or syncope. Fatigue 92376556 R53.83 05/03/18 c/o chronic fatigue, but worsened since starting a second job in November of this year. c/o hair loss. Will check TSH a test as she is not trying to prevent . Encouraged to get 7-8 hours of sleep per night. Localized swelling, mass and lump, lower limb 552015389 R22.41 9/4/18 approximat e 1 cm fluctuant mass noted to right anterior patellar area. No swelling or erythema noted to knee. Good ROM. Pressure on area does not increase pain. Will order an ultrasound to determine cause of mass. [id number] Angie Rodriguez [address] [place] [address] 07/25/2018 10:52:16 07/25/2018 12:58:57 Mixed anxiety and depressive disorder 212766855 F41.8 07/25/18 c/o anxiety for many years and greatly increased for the past month. States makes her hands start to tingle. Denies any changes when this started. States she recently quite her job at [employer] to cut out some of her stress. [...] or sooner if any concerns. Vaginal discharge 672881 006 N89.8 07/25/18 c/o watery vaginal discharge x 2 weeks with an occasional odor to it. Denies any color to discharge, any itching or sores. Denies exposure to STIs. Discussed likely bacterial vaginosis. Will treat empiricall y. Discussed to abstain from intercours e until finished with treatment. Removal of suture 607746 01 Z48.02 07/25/18 States she was told to f/u here for suture removal in 14 days. Today is day 13. Removed 3 sutures and wound started to come apart. Steri striped and instructed to RTC in 7 days and we will remove the rest of the sutures and apply more steri strips. [id number] Angie Rodriguez [address] [place] [address] 08/22/2018 08:32:48 08/22/2018 08:51:08 Depressive disorder 63493539 F32.9 Mixed anxi ety and depressive disorder 740052195 F41.8 07/25/18 c/o anxiety for many years and greatly increased for the past month. States makes her hands start to tingle. Denies any changes when this started. States she recently quite her job at [employer] to cut out some of her stress. [...] a recheck or sooner if any concerns. [id number] Angie Rodriguez [facility] [address] [place] [address] 08/24/2018 15:36:01 08/24/2018 16:31:55 Viral gastroenteritis 651473989 A08.4 08/24/18 c/o diarrhea and vomiting and cold chills since 0300 this morning. c/o epigastric pain. Not able to keep anything down. States within 5 minutes after taking sips of anything it comes back up. States has aunt and cousin with similar s/s and they were together yesterday for [place]. States about 30 minutes before getting here [...] 1-2 days or sooner if any concerns. [id number] Angie Rodriguez [facility] [address] [place] [address] 11/23/2018 15:39:38 11/23/2018 16:16:48 Mixed anxiety and depressive disorder 929875824 F41.8 07/25/18 c/o anxiety for many years and greatly increased for the past month. States makes her hands start to tingle. Denies any changes when this started. States she recently quite her job at [employer] to cut out some of her stress. [...] any concerns. Irritable bowel syndrome with diarrhea 653524498 K58.0 11/23/18 c/o frequent loose stools especially [...] for recheck or sooner if any concerns. [id number] Angie Rodriguez [facility] [address] [place] [address] 01/24/2019 15:31:27 01/24/2019 17:15:25 Mixed anxiety and depressive disorder 726851908 F41.8 07/25/18 c/o anxiety for many years and greatly increased for the past month. States makes her hands start to tingle. Denies any changes when this started. States she recently quite her job at [employer] to cut out some of her stress. [...] any concerns. Dysfunctio n of eustachian tube 66391217 H68.011 01/24/19 c/o burning sensation to right [...] for recheck or sooner if any concerns. [id number] Angie Rodriguez [facility] [address] [place] [address] 03/01/2019 15:49:41 03/01/2019 16:49:38 Pruritic rash 99117636 L28.2 03/01/19 c/o rash to bilateral legs [...] or sooner if any worsening or concerns. [id number] MD Jennifer Iverson [facility] [address] [place] [address] 10/11/2019 10:57:50 10/11/2019 13:01:13 Irritable bowel syndrome with diarrhea 851606357 K58.0 11/23/18 c/o frequent loose stools especially [...] to trial. Dysfunctio n of eustachian tube 59509397 H68.011 01/24/19 c/o burning sensation to right [...] sooner if any worsening or concerns. Fatigue 60388170 R53.83 05/03/18 c/o chronic fatigue, but worsened [...] labs and go from there. HIV screening 809253659 Z11.4 [id number] Angie Rodriguez [address] [place] [address] 01/01/2020 13:05:19 01/01/2020 15:19:26 Mixed insomnia 64486082 G47.09 01/01/2020 phone visit for f/u of [...] or sooner if any worsening or concerns. [id number] Angie Rodriguez [address] [place] [address] 03/07/2020 09:51:27 03/07/2020 11:07:42 Adult health examination 666362211 Z00.00 03/06/20: Here for a school physical. Exam within normal limits. Required form completed and given to patient. Advised her to RTC for TB skin test. Body mass index 40+ - severely obese 999146488 Z68.43 Morbid obesity 462888496 E66.01 [id number] RAKESH Lucero [facility] [address] [place] [address] 03/08/2020 11:30:25 03/08/2020 11:47:54 Tuberculosis screening 555643595 Z11.1 [id number] Austin CastellanoRAKESH HC [address] [place] [address] 03/11/2020 13:59:33 03/11/2020 14:13:58 [id number] RAKESH Lucero [address] [place] [address] 03/18/2020 14:45:31 03/18/2020 14:58:58 Tuberculosis screening 600538956 Z11.1 [id number] Angie Schulza [address] [place] [address] 04/17/2020 15:49:33 04/17/2020 16:46:49 Pain in left foot 9578775693 47018 M79.672 04/17/2020 c/o pain to left ventral foot x 1.5 weeks after pushing concrete stairs back and felt a pop. Able to walk but this increases the pain. REBECCA wrap applied. Advised RICE, ibuprofen as directed and will check an xray to make sure there is no stress fx. Body mass index 40+ - severely obese 455870683 Z68.43 04/17/2020 Interested in weight loss. Has been working out a few times per week and trying to decrease carbs and cut out sweet drinks altogether but this does not seem to be doing anything. No longer trying to get at this point. Waiting until after the wedding. Discussed journaling intake using one of the free apps ([employer], [employer], etc), decreasing carbs, and making sure [...] Barlow Member ID Guarantor Name 03/07/2020 1 [facility] [id number] [facility] [id number] 3 [facility] 03/08/2020 1 [facility] [id number] [facility] [id number] 3 [facility] 03/11/2020 1 [facility] [id number] [facility] [id number] 3 [facility] 03/18/2020 1 [facility] [id number] [facility] [id number] 3 [facility] 04/17/2020 1 [facility] [id number] [facility] [id number] 3 Kailey [facility] Notes Date Note Type Note Provider Name [...]
--- OUTSIDE RECORDS SUMMARY | 2024-12-18 19:05 | XMS_ITS | Clinical Summary ---
Author Organization [facility] Data Stream [employer] Address [address] [place] [address] Care Team Providers Care Roller Shop Utility Worker Name Role Phone Namita Saini HEAD DOFFER-BIG DATA PLATFORM ARCHITECT Primary Care Provide r Source Comments [facility],non-owned Affiliates and Associated Physician Practices is amultiple site organization consisting of ambulatory clinics and hospital sitesin [place], [place], [place] and [place]. This disclosure is being madepursuant to the Care Everywhere program and may not contain all information available regarding this patient. Last updated 18.[facility] Allergies Active Allergy Reactions Criticality Noted Date Comments Amoxicillin Rash Medium 09/11/2024 Latex Unknown 09/11/2024 Pineapple Unknown 09/11/2024 Metoclopramide Other 09/11/2024 [place] drugged when taking [facility] Medications * Be aware that medications may not be up to date on this document. Alwaysverify current medications with the patient. Vit-DSS-Fe Fum-FA ( vitamin with iron) tabletIndicatio ns: Take 1 (one) tablet by mouth once daily Reasons: Active ondansetron (Zofran) 4 MG tabletIndicatio ns:Nausea and/or Vomiting in Take 1 (one) tablet by mouth every 6 hours as needed for Nausea/Vomiting Reasons: Nausea and Vomiting in Active sertraline (Zoloft) 50 MG tabletIndicatio ns:Generalized Anxiety Disorder Take 1.5 (one and one-half) tablets by mouth at bedtime Reasons: Generalized Anxiety Disorder Active omeprazole (PriLOSEC) 20 MG capsuleIndicati ons:Heartburn Take 1 (one) capsule by mouth daily before breakfast Reasons: Heartburn Active ferrous sulfate 325 (65 FE) MG tablet Take 1 (one) tablet by mouth once daily Active Active Problems Problem Noted Date Diagnosed Date Lower abdominal pain 10/20/2024 Estimated Date of Delivery Comme nts Yes 01/11/2025 Based on Patient Reported Encounters Date Type Department Care Team Description 12/11/2024 2:19 PM CDT - 12/11/2024 11:59 PM CDT Hospital Encounter [facility] Maternal & Care [address] [place] [phone] Bernardo Bonilla MD Discharge Disposition: Home or Self Care 11/13/2024 12:51 PM CDT - 11/13/2024 11:59 PM CDT Hospital Encounter [facility] Maternal & Care [address] [place] [phone] Zarina Mazariegos MD Discharge Disposition: Home or Self Care 10/24/2024 Telephone [facility]/ EVALUATION UNIT [address] [place] [address] Melonie Montoya RN Hospitalization; Hospital Follow-up 10/20/2024 5:24 PM GEOPHYSICS PROFESSOR - 10/23/2024 2:47 PM [facility] 5E ANTEPARTUM/MOTHER BABY [address] [place] [address] Ginny Katz MD Maternal Medicine Discharge Disposition: Home or Self Care 10/20/2024 Travel 10/13/2024 12:47 PM GEOPHYSICS PROFESSOR - 10/13/2024 11:59 PM GEOPHYSICS PROFESSOR Hospital Encounter [facility] Maternal & Care [address] [place] [phone] Ginny Katz MD Discharge Disposition: Home or [...] and heating? Not hard at all 10/20/2024 [facility] [place] [facility] Occupat ional Health - Occupational Stress [...] any time in the past 12 m [place], were you homeless or living in a halfway (including now)? No 10/20/2024 Estimated Date of Delivery Comme nts Yes 01/11/2025 Based on Patient Reported Sex and Gender Information Value Date Recorded Sex Assigned at Female 10/20/2024 11:03 PM GEOPHYSICS PROFESSOR Legal Sex Female 10:58 AM CDT Gender Identity Not on file Sexual Orientation Not on file Last Filed Vital Signs Vital Sign Reading Time Taken Comments Blood Pressure 121/69 10/23/2024 12:15 PM GEOPHYSICS PROFESSOR Pulse 85 09/12/2024 1:53 PM GEOPHYSICS PROFESSOR Temperature 36.8 C (98.3 F) 10/23/2024 12:15 PM GEOPHYSICS PROFESSOR Respiratory Rate 18 10/23/2024 8:25 AM GEOPHYSICS PROFESSOR Oxygen Saturation 100% 10/23/2024 1:05 PM GEOPHYSICS PROFESSOR Inhaled Oxygen Concentration - - Weight 96.2 kg (212 lb) 10/21/2024 7:12 AM GEOPHYSICS PROFESSOR Height 162.6 cm (5' 4 ) 10/21/2024 7:12 AM GEOPHYSICS PROFESSOR Body Mass Index 36.39 10/21/2024 7:12 AM GEOPHYSICS PROFESSOR Plan of Treatment Upcoming Encounters Date Type Department Care Team (Late st Contact Info) Description 01/08/2025 10:30 AM CDT Appointment [facility] Maternal & Care [phone] [phone] Health Maintenance Due Date Last Done Comments [...] Procedure Name Priority Date/Time Associated Diagnosis Comments BIOPHYSICAL PROFILE W NST Routine 12/11/2024 2:19 PM CDT Marginal insertion of umbilical cord affecting management of mother in third trimester (HCC) Amniotic band in third trimester, single or unspecified fetus (HCC) resulting from in vitro fertilization in third trimester (HCC) 35 weeks gestation of (HCC) SONOGRAM - COMPLETE Routine 11/13/2024 1 2:54 PM CDT [facility] Supervision of high-risk of young multigravida Amniotic band in second trimester, single or unspecified fetus Uterine synechiae SONOGRAM - LIMITED Routine 10/23/2024 8: 04 AM GEOPHYSICS PROFESSOR CHLAMYDIA + GC AMPLIFIED PROBE STAT 10/20/2024 11:30 PM GEOPHYSICS PROFESSOR URINALYSIS REFLEX MICROSCOPIC REFLEX CULTURE STAT 10/20/2024 11:29 PM GEOPHYSICS PROFESSOR BLOOD TYPE VERIFICATION Routine 10/20/2024 8:09 PM GEOPHYSICS PROFESSOR TYPE + SCREEN PANEL STAT 10/20/2024 7 :12 PM GEOPHYSICS PROFESSOR PTT STAT 10/20/2024 7:12 PM GEOPHYSICS PROFESSOR PT-INR STAT 10/20/2024 7:12 PM GEOPHYSICS PROFESSOR FIBRINOGEN ACTIVITY STAT 10/20/2024 7 :12 PM GEOPHYSICS PROFESSOR COMPREHENSIVE METABOLIC PANEL STAT 10/20/2024 7:12 PM GEOPHYSICS PROFESSOR CBC W AUTO DIFFERENTIAL STAT 10/20/2024 7:12 PM GEOPHYSICS PROFESSOR CULTURE STREP B STAT 10/20/2024 6:54 PM GEOPHYSICS PROFESSOR SONOGRAM - COMPLETE Routine 10/13/2024 1 2:49 PM GEOPHYSICS PROFESSOR [facility] Supervision of high-risk of young multigravida Amniotic band in second trimester, single or unspecified fetus Uterine synechiae from Last 3 Months Results * BIOPHYSICAL PROFILE W NST (12/11/2024 2:19 PM CDT) Linked Results Indication ======== Suspected synechiae vs Amniotic band on outside ultrasound IVF (transfer on 04/26) Short interpregnancy interval Class II obesity Hospitalized for labor on 10/20/24 Completed anatomy History ====== Past surgical history Gastric sleeve, 2021 OB History 2. Para 1 1. miscarriage. Details: G1-G5 2. live 2023. Gest. age 37 w + 2 d. Weight 2,902 g. Sex of child: female. Details: Vaginal delivery Maternal Assessment Physical Exam Height 157 cm, 5 ft 2 in. Weight 98 kg, 217 lb. Initial weight 94 kg, 207 lb. BMI 39.69 kg/m . Initial BMI 37.86 kg/m . Weight gain 5 kg, 10 lb Method ====== Transabdominal ultrasound. View: Suboptimal view: limited by position ========= Null . Number of fetuses: 1 Dating ====== Date Details Gest. age AURY Stated AURY 35 w + 4 d 01/11/2025 U/S 12/11/2024 based upon AC, BPD, Femur, HC 34 w + 4 d 01/18/2025 Assigned dating based on stated AURY, selected on 09/12/2024 35 w + 4 d 01/11/2025 General Evaluation Cardiac activity present. FHR 152 bpm. Presentation: cephalic Placenta: Placental site: anterior Amniotic fluid: Amount of AF: normal. MVP 5.0 cm. HAYLEE 16.1 cm. Q1 4.0 cm, Q2 5.0 cm, Q3 4.3 cm, Q4 2.8 cm Biometry BPD 82.8 mm 33w 2d 6% Hadlock HC 319.9 mm 36w 0d 29% Hadlock AC 322.9 mm 36w 1d 76% Hadlock Femur 64.0 mm 33w 0d 3% Hadlock Humerus 58.6 mm 33w 6d 29% Kelsey HC / AC 0.99 Weight Calculation: EFW 2,585 g 35% Hadlock EFW (lb,oz) 5 lb 11 oz EFW by Hadlock ([id number]) appropriate Growth Overview Exam date GA BPD (mm) HC (mm) AC (mm) FL (mm) HL (mm) EFW (g) 09/12/2024 22w 5d 50.7 7% 196.2 9% 190.5 76% 38.4 26% 33.4 10% 547 52% 10/13/2024 27w 1d 66.4 26% 256.7 46% 240.6 78% 47.3 7% 43.5 13% 1074 49% 11/13/2024 31w 4d 74.6 5% 282 6% 278.3 57% 59.4 21% 52.4 24% 1747 31% 12/11/2024 35w 4d 82.8 6% 319.9 29% 322.9 76% 64 3% 58.6 29% 2585 35% Anatomy The following structures appear normal: Abdomen Stomach. Kidneys. Bladder. sex: female. Impression ========= Single, live, intrauterine at 35w 4d The size is appropriate. Appropriate interval growth has been demonstrated. The amniotic fluid volume is normal. No major malformations were seen within the limits of ultrasound. Follow-up ======== Follow up ultrasound in 4 weeks for growth assessment if patient remains undelivered Continue weekly testing at primary OB office as scheduled. Thank you for allowing us the opportunity to participate in your patient's care. Coding ====== Procedures [id number]: US Preg [facility]terus [facility] [employer] PACS Anatomical Region Laterality Modality Other 12/11/2024 2:19 PM CDT us R Panchito Hurtado MD [facility] ORDERABLES Edited Result - Final * SONOGRAM - COMPLETE (11/13/2024 12:54 PM CDT) Only the most recent of2 resultswithin the [...] 3 lb 14 oz EFW by Hadlock ([id number]) appropriate Growth Overview Exam date GA BPD [...] view. RVOT view. LVOT view. 3-vessel view. 9-jhwupj-qfrzoqd view. Situs. Aortic arch view. Bicaval view. [...] office beginning next week Coding ====== Procedures [id number]: US Preg Uterus Follow Up [employer] PACS Anatomical Region Laterality Modality Other 11/13/2024 12:5 4 PM CDT R Panchito Hurtado MD [facility] ORDERABLES Edited Result - Final * SONOGRAM - LIMITED (10/23/2024 8:04 AM GEOPHYSICS PROFESSOR) Linked Results Indication ======== Suspected intrauterine bleeding [...] view. RVOT view. LVOT view. 3-vessel view. 8-ljoacz-syzclgm view. Situs. Aortic arch view. Bicaval view. [...] management as deemed appropriate by the inpatient [facility] team 2) Follow-up ultrasound in ~2 weeks to reevaluate growth and complete spine imaging Coding ====== Procedures [id number]: US Uterus Limited [facility] [employer] PACS Anatomical Region Laterality Modality Other 10/23/2024 8:04 AM GEOPHYSICS PROFESSOR us Ginny Katz MD [facility] ORDERABLES Edited Resu lt - Final * CHLAMYDIA + GC AMPLIFIED PROBE (10/20/2024 11:30 PM GEOPHYSICS PROFESSOR) Chlamydia Amplified Probe Negative Negative 10/21/2024 7:36 PM GEOPHYSICS PROFESSOR [facility] GC Amplified Probe Negative Negative 10/21/2024 7:36 PM GEOPHYSICS PROFESSOR [facility] Microbiology URINE / Unknown Collection / Unknown 10/20/2024 11:30 PM GEOPHYSICS PROFESSOR 10/20/2024 11:57 PM GEOPHYSICS PROFESSOR Narrative [facility] - 10/21/2024 7:36 PM GEOPHYSICS PROFESSOR Results based on detection/no detection of ribosomal RNA by amplified method. us Ginny Katz MD LAB - MICROBIOLOGY ORDERABL ES Final Result [facility] [address] [place] [address], [facility] [phone] * (ABNORMAL) URINALYSIS REFLEX MICROSCOPIC REFLEX CULTURE (10/20/2024 11:29 PM GEOPHYSICS PROFESSOR) Color UA Yellow Yellow, Straw 10/21/2024 12:07 AM [facility] Clarity UA Clear Clear 10/21/2024 12:07 AM [facility] Glucose UA Normal Normal 10/21/2024 12:07 AM [facility] Bilirubin UA Negative Negative 10/21/2024 12:07 AM [facility] Ketone UA 2+(A) Negative 10/21/2024 12:07 AM [facility] Specific Hurst UA 1.017 1.005 - 1.030 10/21/2024 12:07 AM [facility] Blood UA Negative Negative 10/21/2024 12:07 AM [facility] pH UA 7.5 5.0 - 9.0 pH 10/21/2024 12:07 AM [facility] Protein UA Negative Negative 10/21/2024 12:07 AM [facility] Urobilinogen UA 3.0(A) Normal mg/dL 025 12:07 AM [facility] Nitrite UA Negative Negative 10/21/2024 12:07 AM [facility] Leukocyte UA Negative Negative 10/21/2024 12:07 AM [facility] Urine URINE SPECIMEN OBTAINED BY CLEAN CATCH PROCEDURE / Unknown Collection / Unknown 10/20/2024 11:29 PM GEOPHYSICS PROFESSOR 10/20/2024 11:57 PM GEOPHYSICS PROFESSOR Narrative [facility] - 10/21/2024 12:07 AM GEOPHYSICS PROFESSOR us Ginny Katz MD LAB - URINALYSIS ORDERABLES Final Result [facility] [address] [place] [id number] * BLOOD TYPE VERIFICATION (10/20/2024 8:09 PM GEOPHYSICS PROFESSOR) ABO Rh A POS 10/20/2024 9:2 1 PM GEOPHYSICS PROFESSOR [facility] B[facility] LAB Blood Bank BLOOD SPECIMEN / Unknown Lab Venipuncture / Unknown 10/20/2024 8:09 PM GEOPHYSICS PROFESSOR 10/20/2024 8:13 PM GEOPHYSICS PROFESSOR us Ginny Katz MD LAB - BLOOD BANK ORDERABLES Final Result [facility] [address] [place] [address] * TYPE + SCREEN PANEL (10/20/2024 7:12 PM GEOPHYSICS PROFESSOR) ABO Rh A POS 10/20/2024 8:28 PM GEOPHYSICS PROFESSOR [facility] LAB Comment:No history; collect retype. Antibody Screen NEG 8:28 PM GEOPHYSICS PROFESSOR [facility] B[facility]OD [facility] LAB Blood Bank BLOOD SPECIMEN / Unknown Lab Venipuncture / Unknown 10/20/2024 7:12 PM GEOPHYSICS PROFESSOR 10/20/2024 7:41 PM GEOPHYSICS PROFESSOR us Ginny Katz MD LAB - BLOOD BANK ORDERABLES Final Result Performing Organization Address City/[facility]/ZIP Co de Phone Number [facility] [address] [place] [address] * (ABNORMAL) FIBRINOGEN ACTIVITY (10/20/2024 7:12 PM GEOPHYSICS PROFESSOR) Fibrinogen 450(H) 200 - 400 mg/dL 10/20/2024 7:58 PM GEOPHYSICS PROFESSOR [facility] Blood BLOOD SPECIMEN / Unknown Lab Venipuncture / Unknown 10/20/2024 7:12 PM GEOPHYSICS PROFESSOR 10/20/2024 7:41 PM GEOPHYSICS PROFESSOR us Ginny Katz MD LAB - COAGULATION ORDERABLE S Final Result [facility] [address] [place] [phone] * PTT (10/20/2024 7:12 PM GEOPHYSICS PROFESSOR) Pathologist [facility] PTT 29.9 23.0 - 38.4 sec 10/20/2024 7:57 PM GEOPHYSICS PROFESSOR [facility] Blood BLOOD SPECIMEN / Unknown Lab Venipuncture / Unknown 10/20/2024 7:12 PM GEOPHYSICS PROFESSOR 10/20/2024 7:41 PM GEOPHYSICS PROFESSOR Narrative [facility] - 10/20/2024 7:57 PM GEOPHYSICS PROFESSOR Heparin Therapeutic Range for PTT: 69.0 - 110.0 seconds. Ginny Katz MD LAB - COAGULATION ORDERABLE S Final Result Performing Organization Address [facility] Co de Phone Number [facility] [address] [place] [phone] * PT-INR (10/20/2024 7:12 PM GEOPHYSICS PROFESSOR) Pathologist [facility] PT 13.7 12.1 - 14.8 sec 10/20/2024 7:57 PM GEOPHYSICS PROFESSOR [facility] INR 1.0 0.9 - 1.1 10/20/2024 7:57 PM GEOPHYSICS PROFESSOR [facility] Blood BLOOD SPECIMEN / Unknown Lab Venipuncture / Unknown 10/20/2024 7:12 PM GEOPHYSICS PROFESSOR 10/20/2024 7:41 PM GEOPHYSICS PROFESSOR Narrative [facility] - 10/20/2024 7:57 PM GEOPHYSICS PROFESSOR Conventional Warfarin Anticoagulant Therapy: INR Reference Range: 2.0-3.0 Intensive Warfarin Anticoagulant Therapy: INR Reference Range: 2.5-3.5 us Ginny Katz MD LAB - COAGULATION ORDERABLE S Final Result Performing Organization Address City/[facility] Co de Phone Number [facility] [address] [place] [phone] * (ABNORMAL) CBC W AUTO DIFFERENTIAL (10/20/2024 7:12 PM GEOPHYSICS PROFESSOR) Pathologist [facility] WBC 8.4 4.0 - 10.7 x10E9/L 10/20/2024 7:49 PM [facility] RBC Count 3.91 3.90 - 5.20 x10E12/L 10/20/2024 7:49 PM [facility] Hemoglobin 9.6(L) 11.9 - 15.8 g/dL 10/20/2024 7:49 PM [facility] Hematocrit 31.1(L) 34.8 - 46.1 % 10/20/2024 7:49 PM [facility] MCV 79.5(L) 80.0 - 98.0 fL 10/20/2024 7:49 PM [facility] MCH 24.6(L) 26.7 - 33.6 pg 10/20/2024 7:49 PM [facility] MCHC 30.9(L) 31.7 - 36.3 g/dL 10/20/2024 7:49 PM [facility] RDW-CV 16.2(H) 11.3 - 14.8 % 10/20/2024 7:49 PM [facility] Platelet Count 232 150 - 420 x10E9/L 10/20/2024 7:49 PM [facility] MPV 11.8(H) 7.8 - 11.4 fL 10/20/2024 7:49 PM [facility] Neutrophil % 79.3(H) 41.0 - 74.0 % 10/20/2024 7:49 PM [facility] Lymphocyte % 13.9(L) 17.0 - 47.0 % 10/20/2024 7:49 PM [facility] Monocyte % 5.7 3.0 - 11.0 % 10/20/2024 7:49 PM [facility] Eosinophil % 0.5 0.0 - 7.0 % 10/20/2024 7:49 PM [facility] Basophil % 0.1 0.0 - 1.6 % 10/20/2024 7:49 PM [facility] Immature Granulocytes % 0.5 0.0 - 1.0 % 10/20/2024 7:49 PM [facility] Neutrophil Absolute 6.63 1.60 - 7.50 x10E9/L 10/20/2024 7:49 PM [facility] Lymphocyte Absolute 1.16 1.00 - 4.40 x10E9/L 10/20/2024 7:49 PM [facility] Monocyte Absolute 0.48 0.15 - 1.00 x10E9/L 10/20/2024 7:49 PM [facility] Eosinophil Absolute 0.04 0.00 - 0.60 x10E9/L 10/20/2024 7:49 PM [facility] Basophil Absolute 0.01 0.00 - 0.13 x10E9/L 10/20/2024 7:49 PM [facility] Blood BLOOD SPECIMEN / Unknown Lab Venipuncture / Unknown 10/20/2024 7:12 PM GEOPHYSICS PROFESSOR 10/20/2024 7:41 PM GEOPHYSICS PROFESSOR us Ginny Katz MD LAB - HEMATOLOGY ORDERABLES Final Result [facility] [address] [phone] * (ABNORMAL) COMPREHENSIVE METABOLIC PANEL (10/20/2024 7:12 PM [facility]) Glucose 74 70 - 99 mg/dL 10/20/2024 8:04 PM [facility] Sodium 135(L) 136 - 145 mmol/L 10/20/2024 8:04 PM [facility] Potassium 3.6 3.5 - 5.1 mmol/L 10/20/2024 8:04 PM [facility] Chloride 106 98 - 107 mmol/L 10/20/2024 8:04 PM [facility] CO2 23 22 - 29 mmol/L 10/20/2024 8:04 PM [facility] Calcium 8.4 8.4 - 10.4 mg/dL 10/20/2024 8:04 PM [facility] Anion Gap 6 6 - 16 mmol/L 10/20/2024 8:04 PM [facility] BUN 4(L) 5.3 - 18.7 mg/dL 10/20/2024 8:04 PM [facility] Creatinine 0.50(L) 0.57 - 1.11 mg/dL 10/20/2024 8:04 PM [facility] Alkaline Phosphatase 69 40 - 150 U/L 10/20/2024 8:04 PM GEOPHYSICS PROFESSOR [facility] ALT 8 0 - 55 U/L 10/20/2024 8:04 PM GEOPHYSICS PROFESSOR [facility] AST 11 5 - 34 U/L 10/20/2024 8:04 PM [facility] Protein Total 6.2(L) 6.4 - 8.3 gm/dL 10/20/2024 8:04 PM [facility] Albumin 2.9(L) 3.4 - 5.0 gm/dL 10/20/2024 8:04 PM [facility] Bilirubin Total 0.2 0.2 - 1.2 mg/dL 10/20/2024 8:04 PM [facility] eGFR by CKD-EPI >90 >=90 mL/min/1.7 3 m2 10/20/2024 8:04 PM [facility] Blood BLOOD SPECIMEN / Unknown Lab Venipuncture / Unknown 10/20/2024 7:12 PM GEOPHYSICS PROFESSOR 10/20/2024 7:41 PM GEOPHYSICS PROFESSOR Ginny Katz MD LAB - CHEMISTRY ORDERABLES Final Result [facility] [address] [place] [address] * CULTURE STREP B (10/20/2024 6:54 PM GEOPHYSICS PROFESSOR) Culture Strep B Negative for beta-hemolytic Streptococcus Group B LESA 10/24/2024 6:52 AM GEOPHYSICS PROFESSOR [facility] Microbiology MISCELLANEOUS SAMPLES / Unknown Collection / Unknown 10/20/2024 6:54 PM GEOPHYSICS PROFESSOR 10/20/2024 7:23 PM GEOPHYSICS PROFESSOR Ginny Katz MD LAB - MICROBIOLOGY ORDERABL ES Final Result [facility] [address] [place] [address], [facility] [phone] from Last 3 Months Insurance [employer] HE[employer] * Guarantor: KAILEY BOTELLO Account Type Relation to Patient Date of Phone Billing Address Personal/Family Spouse Advance Directives * Full Code (Latest Code Status on File) Date Activated Date Inactivated Comments 10/20/2024 6:44 PM 10/23/2024 3:47 PM Care Teams Roller Shop Utility Worker Relationship Specialty Start Date End Date Namita Saini, HEAD DOFFER-BIG DATA PLATFORM ARCHITECT [address] [place] [phone] PCP - General Nurse Practitioner 03/07/20
--- OUTSIDE RECORDS SUMMARY | 2024-12-18 19:05 | XMS_ITS | Encounter Summary ---
Author Organization [facility] Address [facility]ly [facility] [place] [address] Care Team Providers Care Risk Management Professional Name Role Phone Guille Ball MD Unavailable Unavailable Mary Jane Miner [employer] Primary Care Provider [phone] Claudia Green MD Unavailable Encounter Details Date Type Department Care Team (Late st Contact Info) Description 02/04/[address] [address] [place] [address] , Generic ConversionMD Social History Tobacco Use Types Packs/Day Years Used Date Smoking Tobacco: Never Assessed Comments Unknown Sex and Gender Information Value Date Recorded Sex Assigned at Not on file Legal Sex Female 6:24 PM SERVICE UNIT OPERATOR [employer] Gender Identity Female 09/28/2022 2:41 PM SERVICE UNIT OPERATOR [employer] Sexual Orientation Not on file documented as of this encounter Plan of Treatment Not on file documented as of this encounter Visit Diagnoses Not on filedocumented in this encounter Care Teams Risk Management Professional Relationship Specialty Start Date End Date Mary Jane Miner NP [address] [place] [address] PCP - General NURSE PRACTITIONER 09/04/20 Guille Ball MD Consulting Physician INTERVENTIONAL CARDIOLOGY 09/04/20 01/14/21 Claudia Green MD [address] [place] [address] Consulting Physician CARDIOVASCULAR DISEASE 01/15/21 documented as of this encounter
--- OUTSIDE RECORDS SUMMARY | 2024-12-18 19:05 | XMS_ITS | Clinical Summary ---
Author Organization [facility] Address [address] [place] [address] Care Team Providers Care Voice And Data Technician Name Role Phone Kristofer Mary Jane GRANT Primary Care Provider [phone] Claudia Green MD Unavailable Allergies Active Allergy [...] 30 DAYS 0 Active vitamin D2, ergocalciferol, 46728 UNITS capsule Take 50,000 Units by mouth [...] (08/14/2021): per consult visit 07/17/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 Not on file Not on file Not on file Last Filed Vital Signs Vital Sign Reading Time Taken Comments Blood Pressure 115/56 07/19/2024 10:30 AM [employer] Pulse 78 07/19/2024 10:30 AM [employer] Temperature 36.8 C (98.2 F) 07/19/2024 7:50 AM [employer] Respiratory Rate 18 07/19/2024 7:50 AM [employer] Oxygen Saturation 100% 07/19/2024 10:30 AM [employer] Inhaled Oxygen Concentration - - Weight 93.4 kg (206 lb) 07/19/2024 7:50 AM [employer] Height 162.6 cm (5' 4 ) 07/19/2024 7:50 AM [employer] Body Mass Index 35.36 07/19/2024 7:50 AM [employer] Plan of Treatment Health Maintenance Due Date [...] Completed 07/18/2023, 01/06/2023, 11/06/2022, Additional history exists Hepatitis C Completed 06/29/2024, [...] 5 Years) and At-Risk Patients (6 to 49 Years) Aged Out No longer eligible based on patient's age to complete this topic RSV Immunizations Under 20 Months Aged Out No longer eligible based on patient's age to complete this topic Insurance [employer] OPEN ACCESS [facility] Care Teams Voice And Data Technician Relationship Specialty Start Date End Date Mary Jane Miner NP [address] [place] [address] PCP - General NURSE PRACTITIONER 09/04/20 Claudia Green MD [address] [place] [address] Consulting Physician CARDIOVASCULAR DISEASE 01/15/21
--- OUTSIDE RECORDS SUMMARY | 2024-12-18 19:06 | XMS_ITS | Data Portability ---
Author Organization [facility] Address [address] [place] [address] Care Team Providers Care Litigation Counsel Name Role Phone NILSA TAM Primary Care Provider Assessment Encounter Date Assessment Date Assessment LastModified by Organization Details LastModified Time 12/14/2024 12/14/2024 Patient is ___weeks . Discussed plan. [email or web address] Not available 12/14/2024 11:53:16 Plan of Treatment Reminders Order Date Submit Date Provider Last Modified By Organization Details Last Modified Time Details Appointments U/S OB BPP 2024 09:30A M ULTRASOUND Not available Not available Not available NST 2024 10:00A M NST SCHEDULE Not available Not available Not available OB ROUTINE 2024 10:30A M Rhea HURTADO MD Not available Not available Not available U/S OB BPP 2024 09:30A M ULTRASOUND Not available Not available Not available NST 2024 10:00A M NST SCHEDULE Not available Not available Not available OB ROUTINE 2024 10:30A M Rhea HURTADO MD Not available Not available Not available U/S OB BPP 2024 10:00A M ULTRASOUND Not available Not available Not available NST 2024 10:30A M NST SCHEDULE Not available Not available Not available OB ROUTINE 2024 11:00A M Rhea HURTADO MD Not available Not available Not available U/S OB BPP 2024 10:00A M ULTRASOUND Not available Not available Not available NST 2024 10:30A M NST SCHEDULE Not available Not available Not available OB ROUTINE 2024 11:00A M Rhea HURTADO MD Not available Not available Not available Lab None recorde d. Referral None recorde d. Procedures None recorde d. Surgeries None recorde d. Imaging non-str ess test 2024 025 [email or web address] [address], [address], [place], [address], 12/18/2024 19:59:39 US, obstetr ic, biophys ical profile + non-str ess test [email or web address], [address], [place], [address], 12/14/2024 18:27:06 non-str ess test 2024 025 [email or web address] [address], [address], [place], [address], 12/08/2024 01:58:07 US, obstetr ic, biophys ical profile + non-str ess test 2024 025 [address], [address], [place], [address], 12/07/2024 17:22:04 Medication Orders None recorde d. Patient TargetsNo targets recorded. Patient InstructionsNo instructions recorded. Reason for Referral None Reported. Results Created Date Observation Date Name Description Value Unit Range Abnormal Flag Note LastModifiedBy Organization Detail LastModifiedTime 11/14/1911/13/2024 US, sabrina tdusty w/ isreal virk No observ ation record ed. [email or web address] [facility] [address] [place], [address], 11/13/2024 21:10:01 11/14/19 25 11/13/2024 US, obste tric, follo w-up No observ ation record ed. [email or web address] [facility] [address], [place], [address], 12/07/2024 17:30:33 11/17/19 25 11/16/2024 US, obste tric, follo w-up No observ ation record ed. [email or web address] [address] [address], [place], [address], 11/16/2024 13:57:01 11/17/19 25 11/16/2024 non-s tress test No observ ation record ed. [email or web address] [place] [address], [place], [address], 11/16/2024 12:52:56 11/17/19 25 11/16/2024 US, obste tric, follo w-up No observ ation record ed. [email or web address] [address], [place], [address], 11/16/2024 21:48:24 11/24/19 25 11/23/2024 US, obste tric, bioph ysica l profi le No observ ation record ed. [email or web address] [address], [place], [address], 11/26/2024 20:45:32 11/24/19 25 11/23/2024 US, obste tric, bioph ysica l profi le + non-s tress test No observ ation record ed. [email or web address] [address] [address], [place], [address], 11/23/2024 12:13:54 11/24/19 25 11/23/2024 non-s tress test No observ ation record ed. [email or web address] [address] [address], [place], [address], 11/23/2024 15:01:06 11/24/19 non-s tress test No observ ation record ed. [email or web address] [address] [address], [place], [address], 11/23/2024 15:04:50 12/01/19 25 11/30/2024 US, obste tric, bioph ysica l profi le + non-s tress test No observ ation record ed. [email or web address] [place] [address], [place], [address], 11/30/2024 12:14:29 12/01/1911/30/2024 US, obste tric, bioph ysica l profi le + non-s tress test No observ ation record ed. [email or web address] [address], [place], [address], 11/30/2024 21:51:21 12/01/19 25 11/30/2024 non-s tress test No observ ation record ed. [email or web address] [place] [address], [place], [address], 11/30/2024 12:07:25 12/08/19 25 12/07/2024 US, obste tric, bioph ysica l profi le + non-s tress test No observ ation record ed. [email or web address] [place] [address], [place], [address], 12/07/2024 13:50:19 12/08/19 25 12/07/2024 US, obste tric, bioph ysica l profi le + non-s tress test No observ ation record ed. [email or web address] [address], [place], [address], 12/07/2024 22:45:55 12/08/19 25 12/07/2024 non-s tress test No observ ation record ed. [email or web address] [place] [address], [place], [address], 12/07/2024 12:44:27 12/08/19 25 12/07/2024 US, obste tric, bioph ysica l profi le + non-s tress test No observ ation record ed. [email or web address] [address], [place], [address], 12/07/2024 22:45:55 12/12/19 25 12/11/2024 US, obste tric, bioph ysica l profi le + non-s tress test No observ ation record ed. [facility] [address], [place], [address], 12/13/2024 10:28:09 12/12/19 25 12/11/2024 imagi ng/di agnos tic resul t No observ ation record ed. [email or web address] [facility] [address] [facility], [place], [address], 12/15/2024 09:15:02 12/15/19 25 12/14/2024 US, obste tric, bioph ysica l profi le + non-s tress test No observ ation record ed. [email or web address] [place] [address], [place], [address], 12/14/2024 13:54:40 12/15/19 25 12/14/2024 US, obste tric, bioph ysica l profi le + non-s tress test No observ ation record ed. [email or web address] [address], [place], [address], 12/14/2024 22:08:03 12/19/19 25 12/18/2024 non-s tress test No observ ation record ed. [email or web address] [place] [address], [place], [address], 12/18/2024 19:59:39 Result Notes None recorded. Problems Name Problem SNOMED Code Status Onset Date Resolution Date Notes Provider Name and Address Organization Details Recorded Time Bleeding 665162052 Completed 201812/10/2020 Abnormal uterine and vaginal bleeding , unspecif ied;Prac andrei ID: [id number] Maria L Chi [facility] 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 1 10:24:39 Pregnanc y 18926897 Completed 202212/31/[address] [facility] 4 10:51:25 In vitro fertiliz ation Completed anatomy here, echo @ [facility] referral sent 08/19, NSTs at 36 week weekly Melissa Joy [facility] 4 13:53:14 Mixed anxiety and depressi ve disorder 367005120 Completed zoloft Melissa Joy [facility] 4 13:53:14 Gastroes ophageal reflux disease 126836495 Completed no Tx Melissa Benita [facility] 4 13:53:14 Obesity 619088313 Completed NST at 36 weeks. Growth ultrasou nds. Melissa Joy [facility] 4 13:53:14 Low lying placenta 119737685 Completed Branden Hurtado MD [address], [place], [address], [facility] 4 10:40:41 History of bariatri c surgical procedur e 829176280 Completed GASTRIC SLEEVE - Agreed to use hemoglob in A1c is an alternat bob to glucose toleranc e test. Melissa Joy [facility], [facility] 4 13:53:14 SARS-CoV -2 Completed during this pregnanc y, serial growth Melissa Joy [facility], [facility] 4 13:53:14 Placenta circumva llata 0288824 Completed Serial growth Melissa Joy [facility], [facility] 4 13:53:14 Pregnanc y 18515054 Active 2023 Denae Cornelius [facility], [facility] 4 10:51:25 In vitro fertiliz ation Active Branden Hurtado MD [address], [place], [address], [facility] 4 15:24:34 Laparosc opic sleeve gastrect patti Active Branden Hurtado MD [address], [place], [address], [facility] 4 15:25:07 Prediabe alba in mother during pregnanc y Active followed serial hemoglob in A1c in previous pregnanc y. Enoch Hurtado MD [address], [place], [address], [facility] 4 15:26:20 Anemia 814983683 Active iron infusion order faxed 10/[address] [facility] 5 17:34:10 Bacteria l vaginosi s 477206211 Active Branden Hurtado MD [address], [place], [address], [facility] 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 5 18:59:57 Intraute rine synechia e 657134151 Active synechia e vs amniotic band Branden Hurtado MD [address], [place], [address], [facility] 5 18:59:57 Intraute rine synechia e 597966006 Active synechia e vs amniotic band Branden Hurtado MD [address], [place], [address], [facility] 18:59:57 Syncope 734464876 Active syncopal episode, transfus ed 1 unit at outside hospital Branden Hurtado MD [address], [place], [address], [facility] 11:40:53 Pregnanc y-induce d hyperten kena 12819002 Active POSSIBLE - patient recorded blood of >140/90 at home Branden Hurtado MD [address], [place], [address], [facility] 12:24:59 Problem Notes None recorded. Procedures Surgical History Date Name Laterality Status Provider Name and Address Organization Details Recorded Time 2023 Date of Last Pap Smear completed Denae Shields [facility] 06/29/2024 10:50:37 2021 Bariatric Surgery completed [facility] 04/20/2022 13:09:04 2017 procedure on knee completed Maria L [facility] 12/10/2020 10:30:26 2016 [facility]ography [facility] 10/23/2022 16:53:37 2015 Colposcopy completed Danyelle Robles [facility] 10/23/2022 16:16:44 2015 [facility] 10/23/2022 16:17:30 2009 procedure on wrist completed [facility] 12/10/2020 10:29:49 2008 oral frenectomy completed [facility] 12/10/2020 10:29:18 Imaging Results Imaging Date Name Status LastModified by Organiz ation Details LastModified Time 11/13/2024 US, breast, unilateral, w/ axilla completed [email or web address] [facility] [address] [place], [address], 11/13/2024 21:10:01 11/13/2024 US, obstetric, follow-up completed [email or web address] [facility] [address] [place], [address], 12/07/2024 17:30:33 11/16/2024 US, obstetric, follow-up completed [email or web address] [place] [address], [place], [address], 11/16/2024 13:57:01 11/16/2024 non-stress test completed [email or web address] [place] [address], [place], [address], 11/16/2024 12:52:56 11/16/2024 US, obstetric, follow-up completed [email or web address] [address], [place], [address], 11/16/2024 21:48:24 11/23/2024 US, obstetric, biophysical profile completed [email or web address] [address], [place], [address], 11/26/2024 20:45:32 11/23/2024 US, obstetric, biophysical profile + non-stress test completed [email or web address] [place] [address], [place], [address], 11/23/2024 12:13:54 11/23/2024 non-stress test active [email or web address] [place] [address], [place], [address], 11/23/2024 15:01:06 11/23/2024 non-stress test completed [email or web address] [address] [address], [place], [address], 11/23/2024 15:04:50 11/30/2024 US, obstetric, biophysical profile + non-stress test completed [email or web address] [address] [address], [place], [address], 11/30/2024 12:14:29 11/30/2024 US, obstetric, biophysical profile + non-stress test completed [email or web address] [address], [place], [address], 11/30/2024 21:51:21 11/30/2024 non-stress test completed [email or web address] [place] [address], [place], [address], 11/30/2024 12:07:25 12/07/2024 US, obstetric, biophysical profile + non-stress test completed [email or web address] [address] [address], [place], [address], 12/07/2024 13:50:19 12/07/2024 US, obstetric, biophysical profile + non-stress test completed [email or web address] [address], [place], [address], 12/07/2024 22:45:55 12/07/2024 non-stress test completed [email or web address] [place] [address], [place], [address], 12/07/2024 12:44:27 12/07/2024 US, obstetric, biophysical profile + non-stress test completed [email or web address] [address], [place], [address], 12/07/2024 22:45:55 12/11/2024 US, obstetric, biophysical profile + non-stress test completed [facility] [address], [place], [address], 12/13/2024 10:28:09 12/11/2024 imaging/diagnos tic result active [facility] [address], [place], [address], 12/15/2024 09:15:02 12/14/2024 US, obstetric, biophysical profile + non-stress test completed [email or web address] [place] [address], [place], [address], 12/14/2024 13:54:40 12/14/2024 US, obstetric, biophysical profile + non-stress test completed [email or web address] [address], [place], [address], 12/14/2024 22:08:03 12/18/2024 non-stress test active [address], [place], [address], 12/18/2024 19:59:39 Procedure Notes None recorded. Medical Equipment None Reported. Allergies Allergen ID Allergen Name Allergen Category Reaction Reaction Severity Criticality Documentation Date Start Date Code Code System Note Provider Name and Address Organization Details Recorded Time 14743 pineapple extract food Not available Not available Not available 06/24/2023 51519 74 RxNorm Maria L Chi [facility] 3 10:24:58 42184 Reglan medicatio n other mild low 07/20/2024 9230 RxNorm pt felt very unwel l on vira n - made her feel drug ged Melissa Biggsle [facility] 4 10:14:37 964 amoxicill in medicatio n Not available Not available Not available 02/08/2020 723 RxNorm Maria L Chi [facility] 0 14:23:52 965 latex environme nt,medica tion Not available Not available Not available 02/08/2020 70951 91 RxNorm Maria L Chi [facility] 0 14:23:59 Medications Name Sig Start Date Stop Date Status Note LastModified by Organization Details LastModified Time carisopro dol 350 mg tablet TAKE 1 TABLET BY MOUTH THREE TIMES DAILY FOR 3 DAYS NEEDED FOR PAIN 04/20 completed Not Available Not Available Not Available celecoxib 200 mg capsule TAKE 1 CAPSULE BY MOUTH TWICE DAILY NEEDED 04/20 completed Not Available Not Available Not Available amoxicill in 500 mg capsule 06/04 completed Not Available Not Available Not Available prednison e 10 mg tablet 01/07 completed Not Available Not Available Not Available doxycycli ne hyclate 100 mg capsule 06/04 completed Not Available Not Available Not Available clindamyc in HCl 300 mg capsule TAKE 1 CAPSULE BY MOUTH EVERY 8 HOURS FOR 10 DAYS 01/07 completed Not Available Not Available Not Available trazodone 50 mg tablet 01/07 completed Not Available Not Available Not Available cetirizin e 10 mg tablet 03/12 completed Not Available Not Available Not Available azithromy micheal 250 mg tablet TAKE 2 TABLETS BY MOUTH ON DAY 1, AND THEN TAKE 1 TABLET BY MOUTH ONCE A DAY ON DAY 2 THROUGH DAY 5 12/07 completed Not Available Not Available Not Available fluconazo le 150 mg tablet Take 1 tablet by oral route. 06/29 completed Not Available Not Available Not Available clomiphen e citrate 50 mg tablet take 2 tablet by oral route every day 03/12 completed Not Available Not Available Not Available Claritin 10 mg tablet 06/23 completed Not Available Not Available Not Available ondansetr on HCl 4 mg tablet TAKE 1 TABLET BY MOUTH EVERY 4 TO 6 HOURS NEEDED FOR NAUSEA AND VOMITING 08/03 completed Not Available Not Available Not Available prednison e 20 mg tablet TAKE 1 TABLET BY MOUTH ONCE DAILY FOR 7 DAYS 04/20 completed Not Available Not Available Not Available clonazepa m 0.5 mg tablet take 1 tablet by oral route 3 times every day 08/15 completed Prescrib ed Elsewher e: Yes Loca tion: [facility] odify By: george Eddy r DateTime : 11/30/19 02:45:00 PM Not Available Not Available Not Available ceftriaxo ne 250 mg solution for injection inject (125MG) by intramus cular route as a single dose 08/15 completed Prescrib ed Elsewher e: No Locat ion: [facility] odify By: george Eddy r DateTime : 07/18/20 08:15:00 AM Not Available Not Available Not Available prednison e 5 mg tablet TAKE 1 TABLET BY MOUTH ONCE DAILY FOR 3 DAYS 12/07 completed Not Available Not Available Not Available Zoloft 20 mg/mL oral concentra te take 2.5 millilit er by oral route every day and mix with 4 oz. (1/2 cup) of water, kenroy lucie, lemon/li me soda, lemonade or orange juice ONLY for the 2 weeks before the onset of menses 08/15 completed Prescrib ed Elsewher e: Yes Loca tion: [facility] odify By: george Eddy r DateTime : 11/30/19 02:45:00 PM Not Available Not Available Not Available clobetaso l 0.05 % topical cream APPLY CREAM TOPICALL Y TWICE DAILY FOR 7 DAYS 04/20 completed Not Available Not Available Not Available phentermi ne 15 mg capsule TAKE 1 CAPSULE BY MOUTH ONCE DAILY IN THE MORNING 01/07 completed Not Available Not Available Not Available metronida zole 500 mg tablet TAKE 1 TABLET BY MOUTH TWICE DAILY FOR 7 DAYS 08/31 completed Not Available Not Available Not Available prochlorp erazine maleate 10 mg tablet TAKE 1 TABLET BY MOUTH EVERY 6 HOURS NEEDED FOR NAUSEA 04/20 completed Not Available Not Available Not Available ciproflox acin 500 mg tablet 06/04 completed Not Available Not Available Not Available tramadol 50 mg tablet 06/04 completed Not Available Not Available Not Available ondansetr on 8 mg disintegr ating tablet DISSOLVE 1 TABLET BY MOUTH EVERY 8 HOURS 04/20 completed Not Available Not Available Not Available neomycin- bacitraci n-polymyx n 3.5 mg-400 unit-10,0 00 unit/gram eye oint 04/20 completed Not Available Not Available Not Available progester one 50 mg/mL intramusc ular oil 06/29 completed Not Available Not Available Not Available potassium chloride ER 20 mEq tablet,ex tended release(p art/cryst ) 06/23 completed Not Available Not Available Not Available lorazepam 0.5 mg tablet TAKE 1 TABLET BY MOUTH ONCE DAILY AT NIGHT AT BEDTIME FOR 30 DAYS 06/04 completed Not Available Not Available Not Available dicyclomi ne 20 mg tablet TAKE 1 TABLET BY MOUTH EVERY 6 HOURS 01/07 completed Not Available Not Available Not Available benzonata te 100 mg capsule TAKE 1 CAPSULE BY MOUTH THREE TIMES DAILY NEEDED FOR 14 DAYS 01/07 completed Not Available Not Available Not Available doxycycli ne monohydra te 100 mg capsule TAKE 1 CAPSULE BY MOUTH ONCE DAILY FOR 14 DAYS 04/20 completed Not Available Not Available Not Available cephalexi n 500 mg capsule TAKE 1 CAPSULE BY MOUTH EVERY 12 HOURS FOR 10 DAYS 08/03 completed Not Available Not Available Not Available cyanocoba wesly (vit B-12) 1,000 mcg/mL injection solution INJECT 1 ML (CC) ONCE A WEEK FOR 4 WEEKS THEN INJECT 1 ML ONCE EVERY MONTH active Not Available Not Available No t Available ferrous sulfate 325 mg (65 mg iron) tablet 01/07 completed Not Available Not Available Not Available neomycin- polymyxin -dexameth 3.5 mg/mL-10, 000 unit/mL-0 .1% eye drops INSTILL 1 DROP INTO RIGHT EYE THREE TIMES DAILY 04/20 completed Not Available Not Available Not Available progester one micronize d 200 mg capsule Take 1 capsule every day by oral route. 11/03 completed Not Available Not Available Not Available sertralin e 25 mg tablet TAKE 1 TABLET BY MOUTH ONCE DAILY ALONG WITH A 50 MG TABLET TO EQUAL 75MG active Not Available Not Available No t Available omeprazol e 20 mg capsule,d elayed release Take 1 capsule every day by oral route. active Not Available Not Available No t Available estradiol 2 mg tablet 06/29 completed Not Available Not Available Not Available clindamyc in 2 % vaginal cream Insert 1 applicat orful every day by vaginal route. 09/29 completed Not Available Not Available Not Available ceftriaxo ne 500 mg solution for injection 03/12 completed Not Available Not Available Not Available norethind opal acetate 5 mg tablet Take 1 tablet every day by oral route. 01/07 completed Not Available Not Available Not Available hydroxych loroquine 200 mg tablet TAKE 1 TABLET BY MOUTH TWICE DAILY 01/07 completed Not Available Not Available Not Available Pepcid 20 mg tablet 06/23 completed Not Available Not Available Not Available letrozole 2.5 mg tablet TAKE 2 TABLETS BY MOUTH ON DAYS 3 THROUGH 7 OF CYCLE 06/04 completed 2 called in addition al 5 tablets Not Available Not Available Not Available methylpre dnisolone 4 mg tablets in a dose pack TAKE BY MOUTH DIRECTED ON INSIDE OF PACKAGE 04/20 completed Not Available Not Available Not Available Cetrotide 0.25 mg subcutane ous kit 06/04 completed Not Available Not Available Not Available ondansetr on 4 mg disintegr ating tablet active Not Available Not Available Not Available sertralin e 50 mg tablet TAKE 1 TABLET BY MOUTH ONCE DAILY 12/07 completed Not Available Not Available Not Available doxycycli ne hyclate 100 mg tablet take 1 tablet by oral route 2 times every day x 7 days with food. 08/15 completed Prescrib payton Amaya e: No Locat ion: [facility] odify By: george lemus DateTime : 07/18/20 08:15:00 AM Not Available Not Available Not Available leuprolid e 1 mg/0.2 mL subcutane ous kit 06/04 completed Not Available Not Available Not Available phentermi ne 37.5 mg capsule TAKE 1 CAPSULE BY MOUTH ONCE DAILY IN THE MORNING AT LEAST 1 HOURS AFTER A MEAL 01/07 completed Not Available Not Available Not Available naproxen 500 mg tablet TAKE 1 TABLET BY MOUTH TWICE DAILY WITH MEALS 01/07 completed Not Available Not Available Not Available oxycodone 5 mg tablet TAKE 1 TABLET BY MOUTH EVERY 6 HOURS NEEDED FOR PAIN 04/20 completed Not Available Not Available Not Available escitalop johnnie 10 mg tablet TAKE 1 TABLET BY MOUTH ONCE DAILY 04/20 completed Not Available Not Available Not Available escitalop johnnie 20 mg tablet TAKE 1 TABLET BY MOUTH ONCE DAILY 10/23 completed Not Available Not Available Not Available Menopur 75 unit subcutane ous solution 06/04 completed Not Available Not Available Not Available B Complex-V itamin B12 10/23 completed Not Available Not Available Not Available iron 03/30 completed Not Available Not Available Not Available Vitamin D 06/04 completed Not Available Not Available Not Available Vitamin B12 03/30 completed Not Available Not Available Not Available cholecalc iferol (vitamin D3) 1,250 mcg (50,000 unit) capsule 01/07 completed Not Available Not Available Not Available omeprazol e 20 mg tablet,de layed release TAKE 1 CAPSULE BY MOUTH EVERY DAY 06/23 completed Not Available Not Available Not Available Xifaxan 550 mg tablet 03/12 completed Not Available Not Available Not Available Suprep Bowel Prep Kit 17.5 gram-3.13 gram-1.6 gram oral solution USE DIRECTED 12/09 completed Not Available Not Available Not Available FIRST-Ome prazole 2 mg/mL oral suspensio n 10/23 completed Not Available Not Available Not Available Alyacen 1/35 (28) 1 mg-35 mcg tablet take 1 tablet by oral route every day 08/15 completed Prescrib payton Amaya e: No Locat ion: Loly denton [facility] odify By: george Eddy r DateTime : 01/19/20 02:18:05 PM Not Available Not Available Not Available Classic active Not Available Not Available Not Available Active FE 75 mg iron-1,25 0 mcg tablet 10/23 completed Not Available Not Available Not Available Gonal-F RFF Redi-Ject 900 unit/1.5 mL subcutane ous pen injector 06/04 completed Not Available Not Available Not Available Adult Multivita min (w-lutein ) 06/04 completed Not Available Not Available Not Available Aspercrem e (lidocain e) 4 % topical patch 04/20 completed Not Available Not Available Not Available Vitals Date Recorded Body height Body mass index (BMI) Body weight Systolic blood pressure Diastolic blood pressure Provider Name and Address Organization Details Last Updated DateTime 12/07/2024 157.48 cm 39.9 kg/m2 39969.14 g 119 mm[Hg] 79 mm[Hg] Denae Shields [facility] 12:42:19 Date Recorded Body height Body mass index (BMI) Body weight Systolic blood pressure Diastolic blood pressure Provider Name and Address Organization Details Last Updated DateTime 12/07/2024 157.48 cm 40 kg/m2 55986.01 g 119 mm[Hg] 79 mm[Hg] RAMYA Brenda [facility] 5 12:43:44 Date Recorded Body weight Body weight Systolic blood pressure Diastolic blood pressure Systolic blood pressure Diastolic blood pressure Provider Name and Address Organization Details Last Updated DateTime 5 14405.5 4429 g 15917.5 4429 g 122 mm[Hg] 80 mm[Hg] 122 mm[Hg] 80 mm[Hg] Denae Shields [facility] 5 19:58:12 Social History Question Answer Notes LastModified by Organizat ion Details LastModified Time Tobacco Smoking Status Never Smoker Beronica richardson [facility] 07/29/2023 10:51:02 Do You Have An Advance Directive? No [email or web address] Information n ot available 12/10/2020 What Is Your Level Of Alcohol Consumption? None Information not available 06/04/2023 How Many Years Have You Consumed Alcohol? 9 Information not available 04/20/2022 Are You Blind Or Do You Have Difficulty Seeing? Yes Information n ot available 12/10/2020 What Is Your Level Of Caffeine Consumption? Occasional Information not available 06/04/2023 How Much Tobacco Do You Chew? None Information not available 12/10/2020 In The 14 Days Before Symptom Onset, Have You Had Close Contact With A Laboratory-confirm ed COVID-19 While That Case Was Ill? No Information n ot available 12/10/2020 In The 14 Days Before Symptom Onset, Have You Had Close Contact With A Person Who Is Under Investigation For COVID-19 While That Person Was Ill? No Information not available 12/10/2020 Have You Been To An Area Known To Be High Risk For COVID-19? No Information not available 12/10/2020 Are You Currently Employed? Yes [email or web address] Information not available 01/17/2024 Are You Deaf Or Do You Have Serious Difficulty Hearing? No Information not available 12/10/2020 What Type Of Diet Are You Following? REGULAR Information n ot available 06/04/2023 What Is The Highest Grade Or Level Of School You Have Completed Or The Highest Degree You Have Received? 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 Yes Information not available 12/10/2020 Have You Ever Been Counseled For Unhealthy Alcohol Use? No Information not available 07/29/2023 Do You Use Protection During Sex? No Information not available 12/10/2020 Do You Use Your Seat Belt Or Car Seat Routinely? Yes Information not available 12/10/2020 Are You Sexually Active? Yes Information not available 01/17/2024 Do You Have Smoke And Carbon Monoxide Detectors In Your Home? Yes Information not available 12/10/2020 How Much Tobacco Do You Smoke? No Information not available 12/10/2020 Do You Feel Stressed (tense, Restless, Nervous, Or Anxious, Or Unable To Sleep At Night)? [id number] Information not available 12/10/2020 Do You Use Any Illicit Or Recreational Drugs? No Information not available 12/10/2020 Do You Use Sunscreen Routinely? Yes Information not available 12/10/2020 Has Tobacco Cessation Counseling Been Provided? No [email or web address] Information not available 07/29/2023 Have You Used IV Drugs? No Information not available 12/10/2020 Do You Or Have You Ever Used Any Other Forms Of Tobacco Or Nicotine? No [email or web address] Information not available 07/29/2023 Sex: Unknown Functional Status Question Answer Note LastModified by Organizat ion Details LastModified Time Do you have difficulty walking or climbing stairs? No [email or web address] Information not available 07/29/2023 Are you able to walk? YESWOREST Information not available 12/10/2020 Are you able to care for yourself? Yes Information not available 07/29/2023 Do you have difficulty dressing or bathing? No [email or web address] Information not available 07/29/2023 What is your exercise level? Moderate Information not available 12/10/2020 Mental Status None recorded. Family History Relationship Description Onset Age of this Age Resolved Age Notes LastModified by Organization Details LastModified Time Mother Heart disease Not available 2022 10:58:56 Mother Malignant tumor of breast Not available 2022 10:58:57 Maternal Grandmother Carcinoma in situ of lung [email or web address] Not available 10:46:19 Maternal Grandmother Disorder of lung Not available 2022 10:58:57 Maternal Grandmother Malignant tumor of breast Not available 2022 10:58:57 Sister Diabetes mellitus Not available 2022 10:58:57 Sister Hypertensive disorder Not available 2022 10:58:57 Sister Hypertensive disorder Not available 2022 10:58:57 Sister Diabetes mellitus Not available 2022 10:58:57 Sister Hypertensive disorder Not available 2022 10:58:57 Sister Diabetes mellitus Not available 2022 10:58:57 Maternal Aunt Malignant tumor of breast Not available 2022 10:58:57 Maternal Aunt Malignant tumor of breast Not available 2022 10:58:57 Maternal Aunt Malignant tumor of breast Not available 2022 10:58:57 Paternal Grandmother Malignant tumor of breast Not available 2022 10:58:57 Maternal Grandfather Heart disease Not available 2022 10:58:57 Maternal Grandfather Diabetes mellitus Not available 2022 10:58:57 Medical History Condition Response Allergies (Food, seasonal, environmental ) N Other Y Breast Cancer N Drug/Latex Allergies/Reactions Y Blood Transfusion N Dermatologic Disorders N Lung Disease N Defects or Inherited Disease N Breast Problem N Gestational Diabetes N Hematologic disorders N Anesthesia Complications N History of STI Y Deep Vein Thrombosis N Polycystic ovary syndrome Y Anxiety Disorder Y Autoimmune disease N Arthritis N Infertility Y Polyps N Acid Reflux (GERD) Y History of abnormal pap Y Cancer N Stroke N Varicosities N Neurologic/Epilepsy N Endometriosis N High Cholesterol N Headaches N Fibromyalgia N Kidney Disease N Heart Problems N Kidney or Bladder Problems N Thyroid Problems N GI Problems Y Eating Disorder N Anemia Y Art (IVF or FET) N Psychiatric Illness N Ovarian Cancer N Diabetes N Pulmonary (TB, Asthma) N Hepatitis/Liver Disease N No Past Medical History N Eczema N Urinary Tract Infection N Abuse/Domestic Violence N Asthma N Trauma/Violence N Depression/ depression Y Heart Disease N Pre-Eclampsia N Hypertension N Osteoporosis N Thrombophilias N Gynecological History Statement/Question Response Abnormal Pap Yes Date of Last Mammogram Flow Moderate Date of LMP 04/12/2024 N On BCP's at Conception? N STIs/STDs Y Was last menstrual period normal Y HPV Vaccine N Colposcopy 07/30/2016 Duration of Flow (days) 5 Current Control Method Are cycles usually normal Y Frequency of Cycle (Q days) 28 Sexually Active? Y Menses Monthly Y Date of DEXA bone scan Age of first menstrual cycle 14 Date of Last Pap Smear 03/30/2024 Sexual Problems? N LMP Definite N Obstetrics History GPAL:G 7 P 1 0 5 1 Type Value Full Term 1 Spontaneous 5 Living 1 Total 7 Past Encounters Encounter ID Performer Location Encounter Start Date Encounter Closed Date Diagnosis/Indication Diagnosis SNOMED-CT Code Diagnosis ICD10 Code Diagnosis Note [id number] Branden Hurtado MD [facility] [address] [address] 02/08/2020 14:10:13 02/08/2020 16:27:58 Abnormal uterine bleeding [id number] 9100 N93.9 This patient is a 24-year-ol d female who presents for abnormal uterine bleeding and infertilit y. She is been trying to get for over a year. She has intermitte nt ovulation based on her symptoms. She has intermitte nt molimina. She has had a hysterosal pingogram in the past. Her partner is never had a semen analysis. She has irregularl y irregular menses. We spent over 40 minutes face-to-fa ce. We talked about treatment options. Talked about a comprehens bob evaluation . Patient prefers not to have a comprehens bob evaluation or the skin analysis and wants to start letrozole. Talked about letrozole treatment. The instructio ns were handwritte n for her and given to her. She was given patient informatio n on intrauteri ne inseminati on. She is given prescripti ons for norethindr one and letrozole. She will get her blood drawn for labs today. She will have a day 23 progestero ne after she starts letrozole. [id number] Branden Hurtado MD [facility] [address] [address] 03/12/2020 16:16:46 03/13/2020 18:58:42 Female infertility [id number] N97.9 This patient is a 24-year-ol d female who presents for follow-up aftercycle of letrozole. Patient had a positive progestero ne test. The value was 6this is not a strongly positive value.This patient could benefit from a higher dose of letrozole. We agreed to increase the dose. We reviewed all herreprodu ctive history. Weagreed to finally perform the semen analysis.P atient was given [facility]elli [facility]. We spent 15 minutes face-to-fa ce.We will follow-up for day 23 [place]. [id number] Branden Hurtado MD [facility] [address] [address] 12/10/2020 10:13:22 12/10/2020 11:18:00 Menopausal symptom 58207355 E89.41 Abnormal u terine bleeding [id number] 9100 N93.9 This patient is a 25-year-ol d female with severe night sweats. She is soaking her bed sheets. Up until her last menstrual cycle her periods were regular. Premenstru al symptoms are suggestive of ovulation. Approximat cecilia 10 months ago the patient was interested in ovulation was stimulated with letrozole. That effort was discontinu ed. She is getting . She is considerin g getting that. At this time irregular bleeding menopausal symptoms her primary concern. We discussed an evaluation . It is unlikely to be menopause and may require evaluation by an internal medicine doctor. We agreed to obtain sex hormones. We had a detailed conversati on about her symptoms and the evaluation and her symptoms. Gynecologi c examination [id number] Z01.419 [id number] Branden Hurtado MD [facility] [address] [address] 01/07/2021 10:06:15 01/07/2021 11:26:53 Gynecologic examination 46039485 Z01.419 This patient is here for her annual exam. A thorough history was taken. A physical exam was performed. Age appropriat e routine health screening was ordered, performed, and discussed. Recommende d testing was ordered. She was asked to follow up in one year. She will be informed of any test results. Cholestero l - done Pap - today [id number] MD Mateo Pete [address] [address] 01/21/2021 11:21:09 01/21/2021 12:16:43 Lesion of cervix 570201652 N88.9 biopsied the lesion on the cervix was performed. She tolerated it well. [id number] Branden Hurtado MD [facility] [address],[place] [address] 03/06/2021 13:49:43 03/06/2021 15:19:52 Polycystic ovary syndrome 620876735 E28.2 This patient is a 25-year-ol d female who presents for follow-up on laboratory evaluation and biopsy. Her biopsy was benign. Patient is interestin g becoming . She has use Clomid and letrozole in the past with Amarilys Edwards. She has had a normal hysterosal pingogram. She does appear to have regular. She states that they are every 31 days. I want to confirm that she ovulates. She has no premenstru al symptoms. We are going to get a day 25-28 progestero ne. She will return for discussion with Amarilys Andre Regarding ovulation induction IUI. [id number] Branden Hurtado MD [facility] [address],[place] [address] 04/20/2022 12:35:39 04/20/2022 15:28:26 Gynecologic examination 42873398 Z01.419 Z11.51 This patient is here for her annual exam. A thorough history was taken. A physical exam was performed. Age appropriat e routine health screening was ordered, performed, and discussed. Recommende d testing was ordered. She was asked to follow up in one year. She will be informed of any test results. Cholestero l - done Pap - today [id number] Branden Hurtado MD [facility] [address],[place] [address] 08/14/2022 11:52:47 08/17/2022 14:31:08 Missed miscarriage [id number] O02.1 this patient is a 27-year-ol d female with history of irregular bleeding who lost weight and started ovulating and having regular periods. She appears to have a recent chemical . She has some very low positive HCGs. Along with a faintly positive home test. It has resolved now and patient has not had any bleeding yet. Pelvic ultrasound performed today we reviewed those results. We spent over 40 minutes face-to-fa ce. More than 50% was counseling . Talked about miscarriag e. Talked about the evaluation of recurrent miscarriag e. We talked about future and fertility. Talked about prevention of miscarriag e. Talked about progestero ne and baby aspirin. We initiated a plan to start progestero ne after ovulation. If not then to can discontinu e at 28 days. She will be 200 mg of micronized progestero ne. She take a baby aspirin every day. She may have some irregular bleeding shortly because of the positive test. She will follow up as needed. [id number] Britney Jackie [facility] [address] [address] 08/14/2022 15:51:09 08/14/2022 17:16:17 Missed miscarriage [id number] O02.1 Z3A.00 [id number] [facility] [address] [address] 10/23/2022 15:16:08 10/26/2022 17:29:30 Trying to conceive [id number] Z31.9 discussed all options, plan CITLALI consult, while awaiting consult wants to try medicated cycle againplan letrozole 5mg days 3-7, prometrium 200mg after ovulationp natalie US day after +LH strip, will call danyelle . also check progestero ne day 7 after +LH [id number] [facility] [address] [address] 11/04/2022 12:04:18 11/04/2022 12:41:20 Female infertility [id number] N97.9 This patient is a 24-year-ol d female who presents for follow-up aftercycle of letrozole. Patient had a positive progestero ne test. The value was 6this is not a strongly positive value.This patient could benefit from a higher dose of letrozole. We agreed to increase the dose. We reviewed all herreprodu ctive history. Weagreed to finally perform the semen analysis.P atient was given instructnelli zuniga [facility]. We spent 15 minutes face-to-fa ce.We will follow-up for day 23 progestero ne. [id number] Altagracia [facility] [address],[place] [address] 06/04/2023 10:23:25 06/04/2023 11:07:51 [id number] Branden Hurtado MD [facility] [address],[place] [address] 06/04/2023 10:23:51 06/04/2023 11:59:19 Recurrent miscarriage [id number] N96 This patient is a 28-year-ol d female with amenorrhea . She has a 9 week baby by in vitro fertilizat ion. She has no complaints . We talked about early care. We talked about progestero ne. She is going to continue progestero ne her reproducti ve endocrinol ogy that is I a.m. and daily. She would like to continue the progestero ne after 10 weeks. We prescribed progestero ne, oral progestero ne today. She has no concerns about diet restrictio ns, exercise, over-the-c ounter medication s. She will return in 3 weeks. [id number] [facility] [address],[place] [address] 06/24/2023 09:30:22 06/24/2023 10:21:41 screening 363320876 Z36.82 O09.811 O99.210 Z3A.11 [id number] Branden Hurtado MD [facility] [address] [address] 06/24/2023 09:30:54 06/25/2023 01:37:02 Routine care 265331691 Z34.90 [id number] Branden Hurtado MD [facility] [address],[place] [address] 07/29/2023 10:46:44 07/29/2023 11:48:19 Routine care [id number] Z34.90 [id number] [facility] [address],[place] [address] 08/19/2023 09:56:43 08/19/2023 11:24:00 screening [id number] Z36.0 O09.812 Z86.16 O99.214 O99.842 Z3A.19 [id number] Branden Hurtado MD [facility] [address],[place] [address] 08/19/2023 09:57:05 08/19/2023 12:13:25 Routine care 193078416 Z34.90 [id number] [facility] [address],[place] [address] 09/21/2023 13:50:13 09/21/2023 14:37:27 Maternal obesity complicating , childbirth and the puerperium, antepartum [id number] 07 O99.842 O09.812 O43.112 Z86.16 Z3A.24 [id number] Branden Hurtado MD [facility] [address],[place] [address] 09/21/2023 13:50:51 09/21/2023 15:26:27 History of bariatric surgical procedure 067678789 Z98.84 Routine an tenatal care [id number] Z34.90 [id number] [facility] [address],[place] [address] 10/21/2023 13:48:53 10/21/2023 14:23:45 Maternal obesity complicating , childbirth and the puerperium, antepartum [id number] 07 O99.842 O09.812 O43.112 Z86.16 Z3A.28 [id number] MD Mateo Pete [address],[place] [address] 10/21/2023 13:49:21 10/21/2023 15:17:30 Routine care [id number] Z34.90 [id number] MD Mateo Pete [address],[place] [address] 11/04/2023 10:23:36 11/04/2023 11:44:09 Routine care [id number] Z34.90 [id number] [facility] [address],[place] [address] 11/18/2023 09:23:24 11/18/2023 10:34:53 Maternal obesity complicating , childbirth and the puerperium, antepartum [id number] 07 O99.842 O09.812 O43.112 Z86.16 Z3A.32 [id number] Angelique Wrightse [facility] [address],[place] [address] 11/18/2023 09:23:53 11/18/2023 10:53:34 Maternal obesity complicating , childbirth and the puerperium, antepartum 4024690091 07 O99.842 O09.812 O43.112 Z86.16 Z3A.32 [id number] Branden Hurtado MD [facility] [address],[place] [address] 11/18/2023 09:24:10 11/18/2023 10:56:47 Routine care [id number] Z34.90 [id number] [facility] [address],[place] [address] 11/25/2023 09:22:41 11/25/2023 10:04:03 Maternal obesity complicating , childbirth and the puerperium, antepartum [id number] 07 O99.842 O09.812 O43.112 Z86.16 Z3A.33 [id number] Mariah Bermudez [facility] [address],[place] [address] 11/25/2023 09:23:03 11/25/2023 10:54:25 Maternal obesity complicating , childbirth and the puerperium, antepartum [id number] 07 O99.842 O09.812 O43.112 Z86.16 Z3A.33 [id number] Branden Hurtado MD [facility] [address],[place] [address] 11/25/2023 09:23:20 11/25/2023 11:16:16 Routine care [id number] Z34.90 [id number] [facility] [address],[place] [address] 12/02/2023 09:54:29 12/02/2023 10:32:14 Maternal obesity complicating , childbirth and the puerperium, antepartum [id number] 07 O99.842 O09.812 O43.112 Z86.16 Z3A.34 [id number] [facility] [address],[place] [address] 12/02/2023 09:54:56 12/02/2023 11:41:30 Maternal obesity complicating , childbirth and the puerperium, antepartum [id number] 07 O99.842 O09.812 O43.112 Z86.16 Z3A.34 [id number] Branden Hurtado MD [facility] [address],[place] [address] 12/02/2023 09:55:51 12/02/2023 12:11:51 Routine care [id number] Z34.90 [id number] [facility] [address],[place] [address] 12/09/2023 09:24:44 12/09/2023 10:21:15 IVF - in-vitro fertilization [id number] 2102 O09.813 O99.213 Z3A.35 [id number] [facility] [address],[place] [address] 12/09/2023 09:25:03 12/09/2023 11:34:19 Maternal obesity complicating , childbirth and the puerperium, antepartum [id number] 07 O99.842 O09.812 O43.112 Z86.16 Z3A.34 [id number] Branden Hurtado MD [facility] [address],[place] [address] 12/09/2023 09:25:17 12/09/2023 14:40:28 Routine care [id number] Z34.90 [id number] Altagracia [facility] [address],[place] [address] 12/16/2023 09:25:51 12/16/2023 10:15:56 IVF - in-vitro fertilization [id number] 2102 O09.813 O99.213 Z3A.36 [id number] Angelique Lutz [facility] [address],[place] [address] 12/16/2023 09:26:10 12/16/2023 10:49:53 Maternal obesity complicating , childbirth and the puerperium, antepartum [id number] 07 O99.842 O09.812 O43.112 Z86.16 Z3A.34 [id number] Branden Hurtado MD [facility] [address],[place] [address] 12/16/2023 09:26:30 12/16/2023 11:21:04 Routine care [id number] Z34.90 [id number] Branden Hurtado MD [facility] [address],[place] [address] 01/17/2024 11:37:04 01/17/2024 12:39:53 care [id number] Z39.2 [id number] Branden Hurtado MD [facility] [address],[place] [address] 03/30/2024 12:42:14 03/30/2024 13:33:55 Gynecologic examination 67205705 Z01.419 This patient is here for her annual exam. A thorough history was taken. A physical exam was performed. Age appropriat e routine health screening was ordered, performed, and discussed. Recommende d testing was ordered. She was asked to follow up in one year. She will be informed of any test results. Cholestero l - done Pap - today [id number] Altagracia Arellano [facility] [address],[place] [address] 06/29/2024 10:02:37 06/29/2024 10:36:35 screening [id number] Z36.82 Z3A.11 [id number] Branden Hurtado MD [facility] [address],[place] [address] 06/29/2024 10:03:36 06/29/2024 15:27:32 Gestation period, 12 weeks [id number] Z3A.12 Routine an tenatal care [id number] Z34.90 [id number] Branden Hurtado MD [facility] [address],[place] [address] 08/03/2024 10:44:53 08/03/2024 11:33:12 Routine care [id number] Z34.90 [id number] [facility] [address],[place] [address] 08/31/2024 10:18:24 08/31/2024 12:52:10 screening for malformation [id number] Z36.3 Z3A.20 [id number] Branden Hurtado MD [facility] [address],[place] [address] 08/31/2024 10:18:48 08/31/2024 14:58:04 Bacterial vaginosis 146758387 N76.0 [id number] Branden Hurtado MD [facility] [address],[place] [address] 09/29/2024 10:46:04 09/29/2024 11:46:37 Routine care [id number] Z34.90 [id number] Branden Hurtado MD [facility] [address],[place] [address] 10/20/2024 11:10:06 10/23/2024 07:11:49 Routine care 760981135 Z34.90 [id number] Branden Hurtado MD [facility] [address],[place] [address] 11/01/2024 15:52:17 11/02/2024 03:22:33 Routine care [id number] Z34.90 [id number] [facility] [address],[place] [address] 11/16/2024 11:18:22 11/16/2024 12:11:40 IVF - in-vitro fertilization [id number] 2 O09.813 O09.893 Z3A.31 [id number] Agata Lagunas [facility] [address],[place] [address] 11/16/2024 11:18:38 11/16/2024 12:56:27 IVF - in-vitro fertilization [id number] 2102 O09.813 O09.893 Z3A.31 [id number] Branden Hurtado MD [facility] [address],[place] [address] 11/16/2024 11:19:03 11/16/2024 13:15:04 Routine care [id number] Z34.90 [id number] [facility] [address],[place] [address] 11/23/2024 10:20:44 11/23/2024 11:17:12 IVF - in-vitro fertilization [id number] 2 O09.813 O09.893 Z98.84 Z3A.32 [id number] [facility] [address],[place] [address] 11/23/2024 10:20:58 11/23/2024 15:18:47 IVF - in-vitro fertilization [id number] 2 O09.819 [id number] Branden Hurtado MD [place] [address],[place] [address] 11/23/2024 10:22:47 11/23/2024 12:29:04 Routine care [id number] Z34.90 [id number] [facility] [address],[place] [address] 11/30/2024 10:22:07 11/30/2024 11:06:30 IVF - in-vitro fertilization [id number] 2 O09.813 O99.840 Z3A.33 [id number] RAMYA Brenda [place] [address],[place] [address] 11/30/2024 10:23:42 11/30/2024 12:11:08 IVF - in-vitro fertilization [id number] 2102 O09.813 O99.840 Z3A.33 [id number] Branden Hurtado MD [place] [address],[place] [address] 11/30/2024 10:24:17 11/30/2024 12:27:43 Routine care [id number] Z34.90 [id number] Altagracia Arellano [place] [address],[place] [address] 12/07/2024 11:25:44 12/07/2024 12:09:30 IVF - in-vitro fertilization [id number] 2102 O09.813 O99.840 Z3A.34 [id number] RAMYA Gutierrez [place] [address],[place] [address] 12/07/2024 11:25:57 12/07/2024 13:25:38 IVF - in-vitro fertilization [id number] 2102 O09.813 O99.840 Z3A.34 [id number] Branden Hurtado MD [place] [address],[place] [address] 12/07/2024 11:26:08 12/07/2024 13:25:25 Routine care [id number] Z34.90 [id number] [facility] [address],[place] [address] 12/14/2024 10:28:19 12/14/2024 11:08:35 IVF - in-vitro fertilization [id number] 2102 O09.819 O99.210 Z3A.35 [id number] Denae Shields [place] [address],[place] [address] 12/14/2024 10:28:31 12/18/2024 20:00:19 [id number] Z33.1 IVF - in-v itro fertilization [id number] 2102 O09.819 [id number] Branden Hurtado MD [place] [address],[place] [address] 12/14/2024 10:28:52 12/14/2024 12:22:27 care status [id number] Z34.80 Health Concerns Section Related Observation LastModified by Organization Detai ls LastModified Time None Recorded Concern Status LastModified by Organization Details LastModified Time None Recorded Advance Directives Directive N: Payers Encounter Date Sequence Insurance Name Policy Number Policy Barlow Covered Member ID Barlow Member ID Guarantor Name 12/07/2024 1 [employer] [facility] Monty Darin [id number] OI Kailey Darin 12/07/2024 1 [facility] [facility] Monty Darin [id number] OI Kailey Darin 12/14/2024 1 [facility] [facility] Monty Darin [id number] OI Kailey Darin 12/14/2024 1 [facility] [facility] Monty Darin [id number] OI Kailey Darin 12/14/2024 1 [facility] Monty Darin [id number] OI Kailey Darin OBGyn Episode Ob Episode Information Episode Created Date Number of Fetuses Patient Bloodtype Patient rh Status Prepregnancy Weight lbs Domestic Partner Domestic Partner Phone Father Name Front Desk Administrator Status 02/08/20 20 1 CLOSED Fetus Data First Name Last Name Admitted to NICU Weight (g) Sex Living Outcome Pediatric Complications Fetus ID Race Codes Race Delivery Type , Spontane ous [id number] Trav Calculation Initial Trav Date Initial Exam Date Initial Exam Provider Initial Ultrasound Date Last Menstrual Period Date Ultra Sound Weeks Gestation 0 Eighteen To Twenty Week Trav Update Ultra Sound Date Fundal Height At Umbil Quickening Date Ultra Sound Latest Weeks Gestation Final Trav Confirmed By Final Trav Confirmed Date Final Trav Date Ultra Sound Latest Days Gestation 0 0 Menstrual History Last Menstrual Date Menses Monthly On Bcp Conception Prior Menses Frequency Hcg Plus Date Menarche Onset Age Delivery Information Delivery Date Delivery Type Labor Anesthesia Weeks Gestation Incision Type Labor Labor Length Hrs Delivered By Post Complications Tubal Sterilization Discharge Date Comments 8 Discharge Information Feeding Method Contraceptive Method Maternal HG B and HCT Levels Ob Episode Information Episode Created Date Number of Fetuses Patient Bloodtype Patient rh Status Prepregnancy Weight lbs Domestic Partner Domestic Partner Phone Father Name Front Desk Administrator Status 10/23/19 23 1 CLOSED Fetus Data First Name Last Name Admitted to NICU Weight (g) Sex Living Outcome Pediatric Complications Fetus ID Race Codes Race Delivery Type , Spontane ous [id number] Trav Calculation Initial Trav Date Initial Exam Date Initial Exam Provider Initial Ultrasound Date Last Menstrual Period Date Ultra Sound Weeks Gestation 0 Eighteen To Twenty Week Trav Update Ultra Sound Date Fundal Height At Umbil Quickening Date Ultra Sound Latest Weeks Gestation Final Trav Confirmed By Final Trav Confirmed Date Final Trav Date Ultra Sound Latest Days Gestation 0 0 Menstrual History Last Menstrual Date Menses Monthly On Bcp Conception Prior Menses Frequency Hcg Plus Date Menarche Onset Age Delivery Information Delivery Date Delivery Type Labor Anesthesia Weeks Gestation Incision Type Labor Labor Length Hrs Delivered By Post Complications Tubal Sterilization Discharge Date Comments 3 Discharge Information Feeding Method Contraceptive Method Maternal HG B and HCT Levels Ob Episode Information Episode Created Date Number of Fetuses Patient Bloodtype Patient rh Status Prepregnancy Weight lbs Domestic Partner Domestic Partner Phone Father Name Front Desk Administrator Status 10/23/19 1 CLOSED Fetus Data First Name Last Name Admitted to NICU Weight (g) Sex Living Outcome Pediatric Complications Fetus ID Race Codes Race Delivery Type , Spontane ous [id number] Trav Calculation Initial Trav Date Initial Exam Date Initial Exam Provider Initial Ultrasound Date Last Menstrual Period Date Ultra Sound Weeks Gestation 0 Eighteen To Twenty Week Trav Update Ultra Sound Date Fundal Height At Umbil Quickening Date Ultra Sound Latest Weeks Gestation Final Trav Confirmed By Final Trav Confirmed Date Final Trav Date Ultra Sound Latest Days Gestation 0 0 Menstrual History Last Menstrual Date Menses Monthly On Bcp Conception Prior Menses Frequency Hcg Plus Date Menarche Onset Age Delivery Information Delivery Date Delivery Type Labor Anesthesia Weeks Gestation Incision Type Labor Labor Length Hrs Delivered By Post Complications Tubal Sterilization Discharge Date Comments 7 Discharge Information Feeding Method Contraceptive Method Maternal HG B and HCT Levels Ob Episode Information Episode Created Date Number of Fetuses Patient Bloodtype Patient rh Status Prepregnancy Weight lbs Domestic Partner Domestic Partner Phone Father Name Front Desk Administrator Status 10/23/19 23 1 CLOSED Fetus Data First Name Last Name Admitted to NICU Weight (g) Sex Living Outcome Pediatric Complications Fetus ID Race Codes Race Delivery Type , Spontane ous [id number] Trav Calculation Initial Trav Date Initial Exam Date Initial Exam Provider Initial Ultrasound Date Last Menstrual Period Date Ultra Sound Weeks Gestation 0 Eighteen To Twenty Week Trav Update Ultra Sound Date Fundal Height At Umbil Quickening Date Ultra Sound Latest Weeks Gestation Final Trav Confirmed By Final Trav Confirmed Date Final Trav Date Ultra Sound Latest Days Gestation 0 0 Menstrual History Last Menstrual Date Menses Monthly On Bcp Conception Prior Menses Frequency Hcg Plus Date Menarche Onset Age Delivery Information Delivery Date Delivery Type Labor Anesthesia Weeks Gestation Incision Type Labor Labor Length Hrs Delivered By Post Complications Tubal Sterilization Discharge Date Comments 9 Discharge Information Feeding Method Contraceptive Method Maternal HG B and HCT Levels Ob Episode Information Episode Created Date Number of Fetuses Patient Bloodtype Patient rh Status Prepregnancy Weight lbs Domestic Partner Domestic Partner Phone Father Name Front Desk Administrator Status 10/23/19 23 1 CLOSED Fetus Data First Name Last Name Admitted to NICU Weight (g) Sex Living Outcome Pediatric Complications Fetus ID Race Codes Race Delivery Type , Spontane ous [id number] Trav Calculation Initial Trav Date Initial Exam Date Initial Exam Provider Initial Ultrasound Date Last Menstrual Period Date Ultra Sound Weeks Gestation 0 Eighteen To Twenty Week Trav Update Ultra Sound Date Fundal Height At Umbil Quickening Date Ultra Sound Latest Weeks Gestation Final Trav Confirmed By Final Trav Confirmed Date Final Trav Date Ultra Sound Latest Days Gestation 0 0 Menstrual History Last Menstrual Date Menses Monthly On Bcp Conception Prior Menses Frequency Hcg Plus Date Menarche Onset Age Delivery Information Delivery Date Delivery Type Labor Anesthesia Weeks Gestation Incision Type Labor Labor Length Hrs Delivered By Post Complications Tubal Sterilization Discharge Date Comments 2 Discharge Information Feeding Method Contraceptive Method Maternal HG B and HCT Levels Ob Episode Information Episode Created Date Number of Fetuses Patient Bloodtype Patient rh Status Prepregnancy Weight lbs Domestic Partner Domestic Partner Phone Father Name Front Desk Administrator Status 06/29/20 24 1 A Positive 210 Monty OPEN Fetus Data First Name Last Name Admitted to NICU Weight (g) Sex Living Outcome Pediatric Complications Fetus ID Race Codes Race Delivery Type [id number] Problems Problem Notes oral Vit DVit B12 injections weekly x 4wk , once freddie x 3 months - pt had 1 infusion pt discussed with Dr Hurtado no further iron infusion orders cancelled per 11/01/24mfm appt with US 11/13/2024 and 12/11/2024 Problem Name Start Date End Date Resolution Snomed Code Not e 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 Syncope 850141737 syncopal e pisode, transfused 1 unit at outside hospital Trav Calculation Initial Trav Date Initial Exam Date Initial Exam Provider Initial Ultrasound Date Last Menstrual Period Date Ultra Sound Weeks Gestation 06/29/2024 04/12/2024 0 Eighteen To Twenty Week Trav Update Ultra Sound Date Fundal Height At Umbil Quickening Date Ultra Sound Latest Weeks Gestation Final Trav Confirmed By Final Trav Confirmed Date Final Trav Date Ultra Sound Latest Days Gestation 0 [email or web address] 06/29/2024 01/13/20 25 0 Pre- Flowsheet Flowsheet Date 06/29/2024 Asher Score Blood Edema Fundus Height Fundus Units Glucose Ketones Leukocytes Nitrite Labor Signs Protein Cervic Dilation Cervic Effacement Cervic Station 12 cm Type Weight in lbs Pre/Post Dialysis Refused Weight 210.800314116213 BP Diastolic BP Location Tested BP Systolic BP Type 77 L arm 119 sitting Fetus Heart Rate Present A 155 Fetus Movement A No Comments this patient is a 29-year-ol d multiparous female at 12 weeks' gestation who presents for initial care. She has a history of term vaginal births. Her medical, surgical, obstetric history is unremarkable. She is vaccinated. She was given precautions recommendations for . We talked about vaccines in . Talked about care in detail. She is having genetic testing. She had a normal 12 week ultrasound. To begin routine care. Flowsheet Date 08/03/2024 Asher Score Blood Edema Fundus Height Fundus Units Glucose Ketones Leukocytes Nitrite Labor Signs Protein Cervic Dilation Cervic Effacement Cervic Station Type Weight in lbs Pre/Post Dialysis Refused 212.50114027729 BP Diastolic BP Location Tested BP Systolic BP Type 83 L arm 123 sitting Fetus Heart Rate Present A 145 Fetus Movement A No Comments no complaints, no problems, routine care, no contractions, no vaginal bleeding, no loss of fluid, no cramping Flowsheet Date 08/31/2024 Asher Score Blood Edema Fundus Height Fundus Units Glucose Ketones Leukocytes Nitrite Labor Signs Protein Cervic Dilation Cervic Effacement Cervic Station Type Weight in lbs Pre/Post Dialysis Refused BP Diastolic BP Location Tested BP Systolic BP Type Fetus Heart Rate Present Fetus Movement Comments Flowsheet Date 08/31/2024 Asher Score Blood Edema Fundus Height Fundus Units Glucose Ketones Leukocytes Nitrite Labor Signs Protein Cervic Dilation Cervic Effacement Cervic Station Type Weight in lbs Pre/Post Dialysis Refused 207.608700488385 BP Diastolic BP Location Tested BP Systolic BP Type 73 L arm 115 sitting Fetus Heart Rate Present A 144 Fetus Movement A Yes Comments Discussed intrauterine synec hia possible connection to the umbilical cord. We are going to get MFM to consider this issue. She has a normal cervical length. But it is at the low end of normal. MFM to evaluate. We discussed her vaginal discharge. We agreed to treat with vaginal clindamycin. Discussed the risks, benefits, and alternatives to the medication. We talked about precautions instructions of the medication. Flowsheet Date 09/29/2024 Asher Score Blood Edema Fundus Height Fundus Units Glucose Ketones Leukocytes Nitrite Labor Signs Protein Cervic Dilation Cervic Effacement Cervic Station Type Weight in lbs Pre/Post Dialysis Refused 213.725392034212 BP Diastolic BP Location Tested BP Systolic BP Type 82 L arm 130 sitting Fetus Heart Rate Present A 161 Fetus Movement A Yes Comments recent syncopal episode, tra nsfuse 1 uterine blood for anemia. Resolved Flowsheet Date 10/20/2024 Asher Score Blood Edema Fundus Height Fundus Units Glucose Ketones Leukocytes Nitrite Labor Signs Protein Cervic Dilation Cervic Effacement Cervic Station Type Weight in lbs Pre/Post Dialysis Refused 212.35057182892 BP Diastolic BP Location Tested BP Systolic BP Type 84 L arm 133 sitting Fetus Heart Rate Present A 145 Present Fetus Movement A Yes Comments marked uterine tenderness, s uprapubic pain and abdominal cramping. No vaginal bleeding, good movement, reassuring heart rate tracing. To send to the hospital for evaluation for placental abruption. Flowsheet Date 11/01/2024 Asher Score Blood Edema Fundus Height Fundus Units Glucose Ketones Leukocytes Nitrite Labor Signs Protein Cervic Dilation Cervic Effacement Cervic Station Type Weight in lbs Pre/Post Dialysis Refused 210.499765009287 BP Diastolic BP Location Tested BP Systolic BP Type 80 L arm 116 sitting Fetus Heart Rate Present A 147 Present Fetus Movement Comments First visit since admission to [facility], still some uterine tenderness occasionally, no vaginal bleeding, otherwise no complaints. Has follow up with the M Flowsheet Date 11/16/2024 Asher Score Blood Edema Fundus Height Fundus Units Glucose Ketones Leukocytes Nitrite Labor Signs Protein Cervic Dilation Cervic Effacement Cervic Station Type Weight in lbs Pre/Post Dialysis Refused BP Diastolic BP Location Tested BP Systolic BP Type Fetus Heart Rate Present Fetus Movement Comments Flowsheet Date 11/16/2024 Asher Score Blood Edema Fundus Height Fundus Units Glucose Ketones Leukocytes Nitrite Labor Signs Protein Cervic Dilation Cervic Effacement Cervic Station Type Weight in lbs Pre/Post Dialysis Refused BP Diastolic BP Location Tested BP Systolic BP Type Fetus Heart Rate Present Fetus Movement Comments Flowsheet Date 11/16/2024 Asher Score Blood Edema Fundus Height Fundus Units Glucose Ketones Leukocytes Nitrite Labor Signs Protein Cervic Dilation Cervic Effacement Cervic Station Type Weight in lbs Pre/Post Dialysis Refused 214.462621349125 BP Diastolic BP Location Tested BP Systolic BP Type 80 L arm 122 sitting Fetus Heart Rate Present A 145 Fetus Movement A Yes Comments no complaints, no problems, routine care, no contractions, no vaginal bleeding, no loss of fluid, no cramping. Flowsheet Date 11/23/2024 Asher Score Blood Edema Fundus Height Fundus Units Glucose Ketones Leukocytes Nitrite Labor Signs Protein Cervic Dilation Cervic Effacement Cervic Station Type Weight in lbs Pre/Post Dialysis Refused BP Diastolic BP Location Tested BP Systolic BP Type Fetus Heart Rate Present Fetus Movement Comments Flowsheet Date 11/23/2024 Asher Score Blood Edema Fundus Height Fundus Units Glucose Ketones Leukocytes Nitrite Labor Signs Protein Cervic Dilation Cervic Effacement Cervic Station Type Weight in lbs Pre/Post Dialysis Refused Weight 215.539632469501 BP Diastolic BP Location Tested BP Systolic BP Type 81 L arm 120 sitting Fetus Heart Rate Present Fetus Movement A Yes Comments Flowsheet Date 11/23/2024 Asher Score Blood Edema Fundus Height Fundus Units Glucose Ketones Leukocytes Nitrite Labor Signs Protein Cervic Dilation Cervic Effacement Cervic Station Type Weight in lbs Pre/Post Dialysis Refused 215.720897521809 BP Diastolic BP Location Tested BP Systolic BP Type 81 L arm 120 sitting Fetus Heart Rate Present A 145 Fetus Movement A Yes Comments no complaints, no problems, routine care, no contractions, no vaginal bleeding, no loss of fluid, no cramping Flowsheet Date 11/30/2024 Asher Score Blood Edema Fundus Height Fundus Units Glucose Ketones Leukocytes Nitrite Labor Signs Protein Cervic Dilation Cervic Effacement Cervic Station Type Weight in lbs Pre/Post Dialysis Refused BP Diastolic BP Location Tested BP Systolic BP Type Fetus Heart Rate Present Fetus Movement Comments Flowsheet Date 11/30/2024 Asher Score Blood Edema Fundus Height Fundus Units Glucose Ketones Leukocytes Nitrite Labor Signs Protein Cervic Dilation Cervic Effacement Cervic Station Type Weight in lbs Pre/Post Dialysis Refused Weight 214.732631933169 BP Diastolic BP Location Tested BP Systolic BP Type 76 L arm 112 sitting Fetus Heart Rate Present Fetus Movement Comments Flowsheet Date 11/30/2024 Asher Score Blood Edema Fundus Height Fundus Units Glucose Ketones Leukocytes Nitrite Labor Signs Protein Cervic Dilation Cervic Effacement Cervic Station Type Weight in lbs Pre/Post Dialysis Refused 214.014340525811 BP Diastolic BP Location Tested BP Systolic BP Type 76 L arm 112 sitting Fetus Heart Rate Present Fetus Movement A Yes Comments patient documented a blood o f 143/90 at home, no complaints, no problems, routine care, no contractions, no vaginal bleeding, no loss of fluid, no cramping Flowsheet Date 12/07/2024 Asher Score Blood Edema Fundus Height Fundus Units Glucose Ketones Leukocytes Nitrite Labor Signs Protein Cervic Dilation Cervic Effacement Cervic Station Type Weight in lbs Pre/Post Dialysis Refused BP Diastolic BP Location Tested BP Systolic BP Type Fetus Heart Rate Present Fetus Movement Comments Flowsheet Date 12/07/2024 Asher Score Blood Edema Fundus Height Fundus Units Glucose Ketones Leukocytes Nitrite Labor Signs Protein Cervic Dilation Cervic Effacement Cervic Station Type Weight in lbs Pre/Post Dialysis Refused Weight 218.612261511236 BP Diastolic BP Location Tested BP Systolic BP Type 79 119 Fetus Heart Rate Present Fetus Movement Comments Flowsheet Date 12/07/2024 Asher Score Blood Edema Fundus Height Fundus Units Glucose Ketones Leukocytes Nitrite Labor Signs Protein Cervic Dilation Cervic Effacement Cervic Station Type Weight in lbs Pre/Post Dialysis Refused Weight 218.719307708553 BP Diastolic BP Location Tested BP Systolic BP Type 79 L arm 119 sitting Fetus Heart Rate Present A 145 Fetus Movement Comments no complaints, no problems, routine care, no contractions, no vaginal bleeding, no loss of fluid, no cramping reassuring testing today Flowsheet Date 12/14/2024 Asher Score Blood Edema Fundus Height Fundus Units Glucose Ketones Leukocytes Nitrite Labor Signs Protein Cervic Dilation Cervic Effacement Cervic Station Type Weight in lbs Pre/Post Dialysis Refused BP Diastolic BP Location Tested BP Systolic BP Type Fetus Heart Rate Present Fetus Movement Comments Flowsheet Date 12/14/2024 Asher Score Blood Edema Fundus Height Fundus Units Glucose Ketones Leukocytes Nitrite Labor Signs Protein Cervic Dilation Cervic Effacement Cervic Station Type Weight in lbs Pre/Post Dialysis Refused 217.554177218880 BP Diastolic BP Location Tested BP Systolic BP Type 80 L arm 122 sitting Fetus Heart Rate Present Fetus Movement A Yes Comments Flowsheet Date 12/14/2024 Asher Score Blood Edema Fundus Height Fundus Units Glucose Ketones Leukocytes Nitrite Labor Signs Protein Cervic Dilation Cervic Effacement Cervic Station 3cm 70% Type Weight in lbs Pre/Post Dialysis Refused 217.518900135877 BP Diastolic BP Location Tested BP Systolic BP Type 80 L arm 122 sitting Fetus Heart Rate Present A 145 Fetus Movement Comments no complaints, no problems, routine care, no contractions, no vaginal bleeding, no loss of fluid, no cramping Menstrual History Last Menstrual Date Menses Monthly On Bcp Conception Prior Menses Frequency Hcg Plus Date Menarche Onset Age 0804/12/2024 true 28 Delivery Information Delivery Date Delivery Type Labor Anesthesia Weeks Gestation Incision Type Labor Labor Length Hrs Delivered By Post Complications Tubal Sterilization Discharge Date Comments Discharge Information Feeding Method Contraceptive Method Maternal HG B and HCT Levels Ob Episode Information Episode Created Date Number of Fetuses Patient Bloodtype Patient rh Status Prepregnancy Weight lbs Domestic Partner Domestic Partner Phone Father Name Front Desk Administrator Status 06/24/20 23 1 A Positive CLOSED Fetus Data First Name Last Name Admitted to NICU Weight (g) Sex Living Outcome Pediatric Complications Fetus ID Race Codes Race Delivery Type 2834.95 F true Full Term [id number] Vaginal Delivery Problems Problem Notes echo wnl Problem Name Start Date End Date Resolution Snomed Code Not e In vitro fertilization 7006445 5 anatomy here, echo @ [facility] referral sent 08/19, NSTs at 36 week weekly Mixed anxiety and depressive disorder 256106717 zoloft Gastroesophageal reflux disease 121869371 no Tx SARS-CoV-2 772886897 during th is , serial growth Placenta circumvallata 6076814 Serial growth Obesity 134752778 NST at 36 weeks. Growth ultrasounds. History of bariatric surgical procedure 025425276 GASTRIC S LEEVE - Agreed to use hemoglobin A1c is an alternative to glucose tolerance test. Trav Calculation Initial Trav Date Initial Exam Date Initial Exam Provider Initial Ultrasound Date Last Menstrual Period Date Ultra Sound Weeks Gestation 01/08/2024 06/24/2023 06/04/2023 8 Eighteen To Twenty Week Trav Update Ultra Sound Date Fundal Height At Umbil Quickening Date Ultra Sound Latest Weeks Gestation Final Trav Confirmed By Final Trav Confirmed Date Final Trav Date Ultra Sound Latest Days Gestation 11/25/19 24 33 01/08/20 24 5 Pre-carmela Flowsheet Flowsheet Date 06/24/2023 Asher Score Blood Edema Fundus Height Fundus Units Glucose Ketones Leukocytes Nitrite Labor Signs Protein Cervic Dilation Cervic Effacement Cervic Station Type Weight in lbs Pre/Post Dialysis Refused Weight 201.139191911535 BP Diastolic BP Location Tested BP Systolic BP Type 80 R arm 129 sitting Fetus Heart Rate Present A 145 Fetus Movement Comments this patient is a 28-year-ol d 6 para 0050 at 11 weeks' gestation. She is dated by an early ultrasound and IVF dates. She is fully vaccinated. She was given recommendations on Tdap. She has depression and takes Zoloft. Otherwise her obstetric history is uncomplicated. She does have gastric sleeve. Will likely get hemoglobin A1c is 4 diabetes screening. History of bariatric surgery, will substitute hemoglobin A1c 4 glucose tolerance test Flowsheet Date 07/29/2023 Asher Score Blood Edema Fundus Height Fundus Units Glucose Ketones Leukocytes Nitrite Labor Signs Protein Cervic Dilation Cervic Effacement Cervic Station none trace Type Weight in lbs Pre/Post Dialysis Refused Weight 202.589302820225 BP Diastolic BP Location Tested BP Systolic BP Type 83 R arm 125 sitting Fetus Heart Rate Present A 151 Fetus Movement Comments no complaints, no problems, routine care, genetic testing today Flowsheet Date 08/19/2023 Asher Score Blood Edema Fundus Height Fundus Units Glucose Ketones Leukocytes Nitrite Labor Signs Protein Cervic Dilation Cervic Effacement Cervic Station Type Weight in lbs Pre/Post Dialysis Refused BP Diastolic BP Location Tested BP Systolic BP Type Fetus Heart Rate Present Fetus Movement Comments Flowsheet Date 08/19/2023 Asher Score Blood Edema Fundus Height Fundus Units Glucose Ketones Leukocytes Nitrite Labor Signs Protein Cervic Dilation Cervic Effacement Cervic Station Type Weight in lbs Pre/Post Dialysis Refused Weight 201.482593867743 BP Diastolic BP Location Tested BP Systolic BP Type 77 R arm 117 sitting Fetus Heart Rate Present Fetus Movement Comments no complaints, no problems, routine care, echo referral sent today. Normal anatomy scan today, circumvallate placenta Flowsheet Date 09/21/2023 Asher Score Blood Edema Fundus Height Fundus Units Glucose Ketones Leukocytes Nitrite Labor Signs Protein Cervic Dilation Cervic Effacement Cervic Station Type Weight in lbs Pre/Post Dialysis Refused BP Diastolic BP Location Tested BP Systolic BP Type Fetus Heart Rate Present Fetus Movement Comments Flowsheet Date 09/21/2023 Asher Score Blood Edema Fundus Height Fundus Units Glucose Ketones Leukocytes Nitrite Labor Signs Protein Cervic Dilation Cervic Effacement Cervic Station 25 Type Weight in lbs Pre/Post Dialysis Refused Weight 203.46099152380 BP Diastolic BP Location Tested BP Systolic BP Type 76 L arm 114 sitting Fetus Heart Rate Present A 135 Fetus Movement Comments complaints, no problems, rou marybel care, to repeat hemoglobin A1c today and in the 3rd trimester. Good growth, normal ultrasound. Normal fluid. Flowsheet Date 10/21/2023 Asher Score Blood Edema Fundus Height Fundus Units Glucose Ketones Leukocytes Nitrite Labor Signs Protein Cervic Dilation Cervic Effacement Cervic Station Type Weight in lbs Pre/Post Dialysis Refused BP Diastolic BP Location Tested BP Systolic BP Type Fetus Heart Rate Present Fetus Movement Comments Flowsheet Date 10/21/2023 Asher Score Blood Edema Fundus Height Fundus Units Glucose Ketones Leukocytes Nitrite Labor Signs Protein Cervic Dilation Cervic Effacement Cervic Station Type Weight in lbs Pre/Post Dialysis Refused Weight 204.827518198076 BP Diastolic BP Location Tested BP Systolic BP Type 80 129 Fetus Heart Rate Present A 145 Fetus Movement Comments Discussed resolution of low- lying placenta, normal growth ultrasound today, hemoglobin A1c today Flowsheet Date 11/04/2023 Asher Score Blood Edema Fundus Height Fundus Units Glucose Ketones Leukocytes Nitrite Labor Signs Protein Cervic Dilation Cervic Effacement Cervic Station neg none none trace Type Weight in lbs Pre/Post Dialysis Refused Weight 205.826253043132 BP Diastolic BP Location Tested BP Systolic BP Type 72 118 Fetus Heart Rate Present Fetus Movement A Yes Comments patient states that having s ome nausea and vomiting, No other problems, routine care, discussed problem list items, to start testing at 32 weeks. Flowsheet Date 11/18/2023 Asher Score Blood Edema Fundus Height Fundus Units Glucose Ketones Leukocytes Nitrite Labor Signs Protein Cervic Dilation Cervic Effacement Cervic Station Type Weight in lbs Pre/Post Dialysis Refused BP Diastolic BP Location Tested BP Systolic BP Type Fetus Heart Rate Present Fetus Movement Comments Flowsheet Date 11/18/2023 Asher Score Blood Edema Fundus Height Fundus Units Glucose Ketones Leukocytes Nitrite Labor Signs Protein Cervic Dilation Cervic Effacement Cervic Station Type Weight in lbs Pre/Post Dialysis Refused BP Diastolic BP Location Tested BP Systolic BP Type Fetus Heart Rate Present Fetus Movement Comments Flowsheet Date 11/18/2023 Asher Score Blood Edema Fundus Height Fundus Units Glucose Ketones Leukocytes Nitrite Labor Signs Protein Cervic Dilation Cervic Effacement Cervic Station neg none none trace Type Weight in lbs Pre/Post Dialysis Refused Weight 208.555784552131 BP Diastolic BP Location Tested BP Systolic BP Type 80 121 Fetus Heart Rate Present Fetus Movement A Yes Comments no complaints, no problems, routine care, good growth on follow-up ultrasound today. Flowsheet Date 11/25/2023 Asher Score Blood Edema Fundus Height Fundus Units Glucose Ketones Leukocytes Nitrite Labor Signs Protein Cervic Dilation Cervic Effacement Cervic Station Type Weight in lbs Pre/Post Dialysis Refused BP Diastolic BP Location Tested BP Systolic BP Type Fetus Heart Rate Present Fetus Movement Comments Flowsheet Date 11/25/2023 Asher Score Blood Edema Fundus Height Fundus Units Glucose Ketones Leukocytes Nitrite Labor Signs Protein Cervic Dilation Cervic Effacement Cervic Station Type Weight in lbs Pre/Post Dialysis Refused BP Diastolic BP Location Tested BP Systolic BP Type Fetus Heart Rate Present Fetus Movement Comments Flowsheet Date 11/25/2023 Asher Score Blood Edema Fundus Height Fundus Units Glucose Ketones Leukocytes Nitrite Labor Signs Protein Cervic Dilation Cervic Effacement Cervic Station none 33 none neg Type Weight in lbs Pre/Post Dialysis Refused Weight 210.809801410557 BP Diastolic BP Location Tested BP Systolic BP Type 80 L arm 122 sitting Fetus Heart Rate Present A 145 Fetus Movement A Yes Comments no complaints, no problems, routine care Flowsheet Date 12/02/2023 Asher Score Blood Edema Fundus Height Fundus Units Glucose Ketones Leukocytes Nitrite Labor Signs Protein Cervic Dilation Cervic Effacement Cervic Station Type Weight in lbs Pre/Post Dialysis Refused BP Diastolic BP Location Tested BP Systolic BP Type Fetus Heart Rate Present Fetus Movement Comments Flowsheet Date 12/02/2023 Asher Score Blood Edema Fundus Height Fundus Units Glucose Ketones Leukocytes Nitrite Labor Signs Protein Cervic Dilation Cervic Effacement Cervic Station Type Weight in lbs Pre/Post Dialysis Refused BP Diastolic BP Location Tested BP Systolic BP Type Fetus Heart Rate Present Fetus Movement Comments Flowsheet Date 12/02/2023 Asher Score Blood Edema Fundus Height Fundus Units Glucose Ketones Leukocytes Nitrite Labor Signs Protein Cervic Dilation Cervic Effacement Cervic Station neg none 34 none trace Type Weight in lbs Pre/Post Dialysis Refused Weight 211.375601699323 BP Diastolic BP Location Tested BP Systolic BP Type 74 117 Fetus Heart Rate Present A 145 Fetus Movement A Yes Comments no Complaints, no problems, routine care Flowsheet Date 12/09/2023 Asher Score Blood Edema Fundus Height Fundus Units Glucose Ketones Leukocytes Nitrite Labor Signs Protein Cervic Dilation Cervic Effacement Cervic Station Type Weight in lbs Pre/Post Dialysis Refused BP Diastolic BP Location Tested BP Systolic BP Type Fetus Heart Rate Present Fetus Movement Comments Flowsheet Date 12/09/2023 Asher Score Blood Edema Fundus Height Fundus Units Glucose Ketones Leukocytes Nitrite Labor Signs Protein Cervic Dilation Cervic Effacement Cervic Station Type Weight in lbs Pre/Post Dialysis Refused BP Diastolic BP Location Tested BP Systolic BP Type Fetus Heart Rate Present Fetus Movement Comments Flowsheet Date 12/09/2023 Asher Score Blood Edema Fundus Height Fundus Units Glucose Ketones Leukocytes Nitrite Labor Signs Protein Cervic Dilation Cervic Effacement Cervic Station neg none none trace Type Weight in lbs Pre/Post Dialysis Refused Weight 212.53760312375 BP Diastolic BP Location Tested BP Systolic BP Type 79 118 Fetus Heart Rate Present A 145 Fetus Movement A Yes Comments no complaints, no problems, routine care, reassuring testing. Flowsheet Date 12/16/2023 Asher Score Blood Edema Fundus Height Fundus Units Glucose Ketones Leukocytes Nitrite Labor Signs Protein Cervic Dilation Cervic Effacement Cervic Station Type Weight in lbs Pre/Post Dialysis Refused BP Diastolic BP Location Tested BP Systolic BP Type Fetus Heart Rate Present Fetus Movement Comments Flowsheet Date 12/16/2023 Asher Score Blood Edema Fundus Height Fundus Units Glucose Ketones Leukocytes Nitrite Labor Signs Protein Cervic Dilation Cervic Effacement Cervic Station Type Weight in lbs Pre/Post Dialysis Refused BP Diastolic BP Location Tested BP Systolic BP Type Fetus Heart Rate Present Fetus Movement Comments Flowsheet Date 12/16/2023 Asher Score Blood Edema Fundus Height Fundus Units Glucose Ketones Leukocytes Nitrite Labor Signs Protein Cervic Dilation Cervic Effacement Cervic Station neg none none trace Type Weight in lbs Pre/Post Dialysis Refused Weight 209.290878652594 BP Diastolic BP Location Tested BP Systolic BP Type 85 126 Fetus Heart Rate Present A 145 Fetus Movement A Yes Comments Patient states that having s ome back pain, cramping, nausea and vomiting. baby is very low. Reassuring testing today. GBS done. 4 cm cervix VERY FAVORABLE primip Menstrual History Last Menstrual Date Menses Monthly On Bcp Conception Prior Menses Frequency Hcg Plus Date Menarche Onset Age Genetic Screening And Infection History Question Response Note Mental Retardation/Autism false Patient's Age Will Be 35 Years Or Older At Estim ated Date of Delivery false Thalassemia (Costa Rican, Lao, Mediterranean, Or Background): MCV < 80 false Neural Tube Defect (Meningomyelocele, Spina Bifi da, Or Anencephaly) false Congenital Heart Defect false Down Syndrome false Saeid-Sachs (eg, Jain, Cajun, Estonian-[place]) f alse Ramiro Disease false Sickle Cell Disease Or Trait () false Hemophilia Or Other Blood Disorders false Muscular Dystrophy false Cystic Fibrosis false Aubrey's Chorea false Intellectual Disability/Autism false If Yes, Was Person Tested For Fragile X? false Other Inherited Genetic Or Chromosomal Disorder false Maternal Metabolic Disorder (eg, Type 1 Diabetes , PKU) false Patient Or Baby's Father Had A Child With Defects Not Listed Above false Recurrent Loss, Or A Stillbirth false Medications (including Suppl ements, Vitamins, Herbs, OTC Drugs), Illicit/Recreational Drugs, Alcohol false If Yes, Agent(s) And Strength/Dosage false Any Other Genetic History false Live With Someone With TB Or Exposed To TB false Patient Or Partner Has History Of Genital Herpes false Rash Or Viral Illness Since Last Menstrual Perio d false History Of STD, Gonorrhea, Chlamydia, HPV, Syphi lis false Other Infection History false History of HIV false History of Hepatitis false Prior GBS-infected child false Hemoglobinopathy Or Carrier false Other Structural Defect false Recent Travel History Outside of Country false Delivery Information Delivery Date Delivery Type Labor Anesthesia Weeks Gestation Incision Type Labor Labor Length Hrs Delivered By Post Complications Tubal Sterilization Discharge Date Comments [facility] idural 37.2 true Branden Hurtado MD Gastroeso phageal reflux disease,H istory of bariatric surgical procedure ,In vitro fertiliza tion,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
--- NOTE | 2024-12-18 19:38 | LDADM ---
This patient, Kailey Webster, was admitted to Labor/Delivery/Recovery 105 on 12/18/24 at 18:35. Plans for labor, pain management and were discussed with patient. Patient/family oriented to hospital policies and general routines including ID bracelet, bed and alarms, visiting hours, pain management, procedures, bathroom and other care routines, personal items, smoking policy, room service/diet and guest tray routines, infant security routines, and visiting hours. Patient/Family are encouraged to report perceived risks to care and to ask questions if they do not understand what they are told or what they should do. See OBIX for further documentation.
[2024-12-18 19:50] LABS: Basophils Percent Auto 0.2 % (0.2-1.2); Eosinophils Percent Auto 0.3 % (0-4.4); Hematocrit 29.1 % (37.0-47.0); Immature Granulocyte Absolute 0.06 K/mm3 (0.00-0.031); Immature Granulocyte Percent A 0.6 % (0-0.5); Lymphocytes Absolute Auto 1.69 K/mm3 (0.9-3.2); Lymphocytes Percent Auto 15.9 % (18.3-44.2); Mean Corpuscular HGB Conc 30.9 g/dl (32-36); Mean Corpuscular Hemoglobin 25.2 pg (26-34); Mean Corpuscular Volume 81.5 fl (80-100); Mean Platelet Volume 12.3 fl (7.4-10.4); Monocytes Absolute Auto 0.5 K/mm3 (0.1-0.6); Neutrophils Absolute Auto 8.3 K/mm3 (1.3-6.7); Platelet Count Result 213 k/mm3 (150-375); Red Blood Count 3.57 M/mm3 (4.2-5.4); Red Cell Distribution Width 15.5 % (11.5-14.5); White Blood Count 10.7 K/mm3 (4.5-10.0)
[2024-12-18] MEDS: OXYTOCIN 30 UNITS/NS 500 ML 30 UNITS/500 ML BAG IV CONT (19:57)
[2024-12-18] MEDS: LACTATED RINGERS 1,000 ML 125 ML IV CONT (19:57)
[2024-12-18] MEDS: ceFAZolin 2 GM/D5W 50 ML 2 GM/50 ML BAG IVPB (20:02)
[2024-12-18] MEDS: CALCIUM CARBONATE (TUMS) 500 MG (200 MG ELEMENTAL) PO (20:03)
[2024-12-18 20:36] LABS: HIV 1/2 Ab P24 Ag Result Negative (Negative)
--- NOTE | 2024-12-18 20:36 | WPDANESEPP ---
Anes - Eval Pre Procedure Procedure: Labor epidural Date/Time: 12/18/24 20:36 Surgeon: Tristan Preop Diagnosis: Abdominal pain with contractions Pre Op Diagnosis: SROM Patient Data Age: 29 Gender: F Height: 1.63 m Weight: 98 kg Last Vital Signs Pulse Ox 100 12/18/24 20:32 Allergies Allergy/AdvReac Type Severity Reaction Status Date / Time amoxicillin Allergy Mild Rash Verified 12/18/24 20:29 latex Allergy Rash Verified 12/18/24 20:29 Penicillins Allergy Hives Verified 12/18/24 20:29 metoclopramide (From Reglan) AdvReac Intermediate Agitated Verified 12/18/24 20:29 other Allergy Rash Uncoded 12/18/24 20:29 Home Medications ?Medication ?Instructions ?Recorded ?Confirmed ?Type omeprazole 20 mg capsule,delayed 20 mg PO HS 12/20/23 12/18/24 History release vit no.95-ferrous 1 tablet PO DAILY 12/20/23 12/18/24 History fumarate 28 mg-folic acid 800 mcg tablet () sertraline 50 mg tablet (Zoloft) 75 mg PO HS 12/20/23 12/18/24 History calcium phosphate,dibasic 77 1 tablet PO DAILY 10/20/24 12/18/24 History mg-vitamin D3 400 unit tablet ferrous sulfate 325 mg (65 mg 325 mg PO DAILY 10/20/24 12/18/24 History iron) tablet (Feosol) Laboratory Tests 12/18/24 19:37 WBC 10.7 H K/mm3 (4.5-10.0) RBC 3.57 L M/mm3 (4.2-5.4) Hgb 9.0 L g/dL (12.0-15.0) Hct 29.1 L % (37.0-47.0) MCV 81.5 fl (80-100) MCH 25.2 L pg (26-34) MCHC 30.9 L g/dl (32-36) RDW 15.5 H % (11.5-14.5) Plt Count 213 k/mm3 (150-375) MPV 12.3 H fl (7.4-10.4) Immature Gran % (Auto) 0.6 H % (0-0.5) Neut % (Auto) 78.0 H % (45.5-73.1) Lymph % (Auto) 15.9 L % (18.3-44.2) Rusk % (Auto) 5.0 % (2.6-8.5) Eos % (Auto) 0.3 % (0-4.4) Baso % (Auto) 0.2 % (0.2-1.2) Lymph # (Auto) 1.69 K/mm3 (0.9-3.2) Rusk # (Auto) 0.5 K/mm3 (0.1-0.6) Eos # (Auto) 0.0 K/mm3 (0-0.3) Baso # (Auto) 0.0 K/mm3 (0.0-0.1) Abs Immat Gran (auto) 0.06 H K/mm3 (0.00-0.031) Absolute Neuts (auto) 8.3 H K/mm3 (1.3-6.7) Absolute Nucleated RBC 0.000 K/mm3 (0.0-0.012) Nucleated RBC % 0.0 % (0.0-0.2) HIV 1&2 Ab/P24 Ag 4thGn Pending : gestational age HCG: positive Patient hx anesthesia problems: none Family hx anesthesia problems: none Results Review: All pre-operative results and documents have been reviewed as part of the pre-operative evaluation. [facility] Past Medical History Medical History and not yet delivered PCOS (polycystic ovarian syndrome) Obese GERD (gastroesophageal reflux disease) Surgical History Surgical History Gastric bypass status for obesity H/O gastric sleeve Social History Social History Smoking status: Never smoker Substance use: never Do You Feel Safe in your Home?: Yes Lack of Transportation: No Lack of Food: Never True Current Housing: I Have Housing Concerned About Future Housing: No Difficulty Paying Gas/Electric Bills: No Difficulty Paying for Meds: No Currently Unemployed: No Education: Associate Degree Difficulty w/ Childcare or Family Care: No Spiritual care concerns: No Exam Day of Procedure 12/18/24 20:36 Patient weight: obese
--- NOTE | 2024-12-18 20:53 | WPDHPUPDATE1 ---
History and Physical Update Update Date/Time: 12/18/24 20:53 29-year-old multiparous female at 36 weeks gestation who presented with ruptured membranes. Active augmentation of labor with Pitocin. Forebag was ruptured. 4 cm/70%/-2. Clear fluid. Reassuring status History and Physical has been reviewed, including an updated exam of the patient. There are NO changes in the patient's condition. Risks, benefits, and alternatives have been discussed and questions answered. Patient agrees to proceed with procedure.
[2024-12-18 21:31] LABS: Syphilis IgG/IgM Antibody Negative (Negative)
[2024-12-18] MEDS: ACETAMINOPHEN 500 MG TABLET 1000 MG PO (22:38)
[2024-12-19] VITALS (110 sets, daily range): BP systolic 95–135; BP diastolic 49–88; PULSE 60–148; RESP 16–18; TEMP 36.5–36.9; O2SAT 90–100
[2024-12-19] MEDS: LACTATED RINGERS 1,000 ML 125 ML IV CONT (00:44)
[2024-12-19] MEDS: CALCIUM CARBONATE (TUMS) 500 MG (200 MG ELEMENTAL) PO (02:40)
[2024-12-19] MEDS: FAMOTIDINE 20 MG/2 ML VIAL IV PUSH (02:40)
[2024-12-19] MEDS: ceFAZolin 1 GM/NS 50 ML 1 GM/50 ML BAG IVPB (04:10)
[2024-12-19] MEDS: ONDANSETRON INJ 4 MG/2 ML VIAL IV PUSH (05:07)
--- NOTE | 2024-12-19 06:35 | PM.OBPRVD ---
OB - Vaginal Delivery Note Procedure Delivery date: 12/19/24 Delivery augmentation: Pitocin Delivery monitor: External FHT and Internal Uterine Route of delivery: Episiotomy description: None Laceration Description: None Quantitative Blood Loss (ml): 150 Anesthesia type: Epidural Disposition: Floor Complications: No immediate complications
[2024-12-19] MEDS: WITCH HAZEL 40 PADS 1 PAD TOPICAL (08:47)
[2024-12-19] MEDS: BENZOCAINE 20% AER SPR (*SP) 56 GM CAN 1 SPRAY TOPICAL (08:47)
--- NOTE | 2024-12-19 09:25 | OBPPTRN ---
Patient transferred to post room # 292 via wheelchair. Support person present. Oriented to unit, room, information board, rooming in, admission packet and security measures. Patient verbalizes understanding.
--- NOTE | 2024-12-19 12:00 | PC.NURSE ---
Introductions were made, then consulted with patient to assess needs related to . Discussed with mother her?plans to feed?her and the?experience so far. She breastfed her first baby for a month and then when she tried to pump she 'only pumped blood'. Patient states she has been using a hand pump prior to delivery. Baby is currently latched in cradle hold on the left breast and doing a very good job of maintaining latch and sustaining suckling bursts. Mom is educated that sometimes babies born at 36 weeks start out with strong feedings but tire out after a day or two and need further assistance in initiating a good milk supply. Mother is at high risk for low milk supply do to history of a gastric sleeve, low milk production, and infertility requiring IVF for this . Will discuss need for pumping today when no visitors are present. Resources provided for inpatient and outpatient services with the feeding sheet, mom/baby guide and name written on the communication board. Mother voiced understanding of information and will call if there is a request for assistance. Reported to the Primary RN. Patient called out to request a hand pump. A double pump kit was pulled and patient was instructed on use of the hand pump. She is aware that we have double electric pumps for her use if needed while she is here. She is familiar with this hand pump and has one at home. She was using an 18mm flange but the smallest size available here is a 21mm so she is advised to use that. Breastmilk storage times handout given and patient is instructed to take apart and clean the pump after each use. Patient verbalized understanding. RN updated.
[2024-12-19] MEDS: MULTIVIT/MIN/PREN/FOL AC/IRON TABLET 1 TAB PO (12:50)
[2024-12-19] MEDS: POLYSACCHARIDE IRON COMPLEX 150 MG CAPSULE PO (12:50)
[2024-12-19] MEDS: DOCUSATE SODIUM 100 MG CAPSULE PO (12:50)
[2024-12-19] MEDS: ACETAMINOPHEN 325 MG TABLET 650 MG PO (15:56)
[2024-12-20 00:07] VITALS: BP 113/66; PULSE 67; RESP 16; TEMP 36.3; O2SAT 98
[2024-12-20] MEDS: ACETAMINOPHEN 325 MG TABLET 650 MG PO ×2 (03:49→21:31)
[2024-12-20 05:04] LABS: Hematocrit 27.8 % (37.0-47.0); Hemoglobin 8.2 g/dL (12.0-15.0)
[2024-12-20 07:50] VITALS: BP 110/70; PULSE 62; RESP 16; TEMP 36.7; O2SAT 99
[2024-12-20] MEDS: IBUPROFEN 600 MG TABLET PO ×3 (08:07→21:31)
[2024-12-20] MEDS: DOCUSATE SODIUM 100 MG CAPSULE PO ×2 (08:07→17:20)
[2024-12-20] MEDS: MULTIVIT/MIN/PREN/FOL AC/IRON TABLET 1 TAB PO (08:07)
[2024-12-20] MEDS: POLYSACCHARIDE IRON COMPLEX 150 MG CAPSULE PO ×2 (08:07→17:20)
--- NOTE | 2024-12-20 08:41 | P.PNOB_ITS ---
OB - PN: Subj Subjective Date/time seen: 12/20/24 08:41 Interval history: pp day 1 doing well reviewed hemoglobin plan oral niferex OB - PN: Obj Data Labs 12/20/24 04:52 Labs: Laboratory Results - last 24 hr 12/20/24 04:52 Hgb 8.2 L Hct 27.8 L OB - PN A/P Plan day: 1 Plan: routine care Time Spent With Patient Time: Total time spent is greater than 50% in coordination of care (as documented) at patient's floor/unit and/or counseling patient: Review of Systems 2 Review of Systems: All systems reviewed & are unremarkable except as noted in HPI and below Exam 2 Const: General: cooperative, healthy appearing and comfortable Neck: Neck: normal visual inspection Cardio: Rate: regular rate Back/Spine/Pelvis: Back: no CVA tenderness
--- NOTE | 2024-12-20 14:06 | WPDANLDPN2 ---
Anes-Prog Note L&D Date/Time: 12/20/24 14:06 Comfortable throughout: labor and delivery Neuraxial method: epidural Epidural/Spinal procedure site: clean & non-tender Neuro status: Neuro function grossly intact. Cardiovascular status: normal Respiratory status: normal Airway patency: baseline Mental status: baseline Post-Op hydration status: normal Vital Signs: Last Vital Signs Temp 36.7 C 12/20/24 07:50 Pulse 62 12/20/24 07:50 Resp 16 12/20/24 07:50 BP 110/70 12/20/24 07:50 Pulse Ox 99 12/20/24 07:50 O2 Del Method Room Air 12/20/24 07:50 Pain score (VAS): 0/10 Post-procedural complaints: none Patient feedback: Patient satisfied with anesthetic care.
--- NOTE | 2024-12-20 17:28 | PC.NURSE ---
1530. Mother verbalizes she is able to independently latch infant with appropriate positioning and alignment. She denies any nipple discomfort and is responsively . Infant is currently meeting outcomes for weight, output, jaundice, blood sugar and feeding frequencies of 8-12 times in 24 hours. Mother reports she has nursed her last feeding for 30 min on each breast, then topped up with formula after. We discussed possibly limiting feeding time at the breast to 30-45 min total so infant does not tire herself out. We also discussed nursing with swallowing and nursing for comfort or nonnutritive sucking. Mother declines any additional assistance or education at this time. Mother is encouraged to call for assistance if her doesn?t latch, pain with latching, questions or concerns. Mother voiced understanding of information shared along with the mom/baby guide for an additional resource. Reported to the Primary RN.
[2024-12-20 20:00] VITALS: BP 123/76; PULSE 71; RESP 16; TEMP 36.8; O2SAT 100
[2024-12-21] MEDS: SERTRALINE HCL 25 MG TABLET 75 MG PO (03:00)
[2024-12-21] MEDS: PANTOPRAZOLE SOD SESQUIHYDRATE 20 MG TAB PO (03:00)
--- NOTE | 2024-12-21 04:13 | P.PNOB_ITS ---
OB - PN: Subj Subjective Date/time seen: 12/21/24 04:13 Interval history: pp day 2 doing well plan oral niferex OB - PN: Obj Data Labs 12/20/24 04:52 Labs: Laboratory Results - last 24 hr 12/20/24 04:52 Hgb 8.2 L Hct 27.8 L OB - PN A/P Plan day: 2 Plan: routine care and discharge home Time Spent With Patient Time: Total time spent is greater than 50% in coordination of care (as documented) at patient's floor/unit and/or counseling patient: Review of Systems 2 Review of Systems: All systems reviewed & are unremarkable except as noted in HPI and below Exam 2 Const: General: cooperative and healthy appearing Nutritional Appearance: a verage body habitus Chest: Chest palpation & inspection: normal inspection of the chest Resp: Effort & Inspection: normal respiratory effort Cardio: Rate: regular rate Skin: General skin exam: normal color Neuro: General: oriented to person, oriented to place, oriented to time and patient oriented x3
--- NOTE | 2024-12-21 04:15 | PM.OBDSVD ---
DS: Admitting Diagnosis Discharge Date 12/21/24 Admitting Diagnosis IOL DS: Discharge Diagnosis Discharge Diagnosis (1) Term delivered: Code(s): O80 - Encounter for full-term uncomplicated delivery Status: Acute OB - DS: Summary OB Procedures : None OB Procedures Intrapartum: Spontaneous Vag Delivery OB Procedures: : None Peripartum Data Laceration Description: None Episiotomy description: None Time Spent with Patient Time attestation: Total time spent providing and/or coordinating discharge services: DS: Data Data Completed and Pending Labs on day of discharge: Labs from last 24 hours 12/20/24 04:52 Hgb 8.2 L Hct 27.8 L Discharge Plan Discharge Attending physician on discharge: Branden Hurtado Discharging Clinician: Amarilys Mancilla Patient Disposition: Home Activity: pelvic rest Diet: regular Patient Instructions: Antibiotic Form Patient Language: Armenian Stand Alone Forms: General Discharge Information Follow-up/Referrals: Branden Hurtado MD [Physician] - 4 Weeks Discharge Medications: Continued omeprazole 20 mg Capsule,Delayed Release(Dr/Ec) 20 mg PO HS sertraline [Zoloft] 50 mg Tablet 75 mg PO HS PNV cmb#95-ferrous fumarate-FA [] 28 mg iron- 800 mcg Tablet 1 tablet PO DAILY calcium phos,dibas-vitamin D3 77-400 mg-unit tablet 1 tablet PO DAILY ferrous sulfate [Feosol] 325 mg (65 mg iron) tablet 325 mg PO DAILY Date of admission: 12/18/24 18:35 Primary Care Provider: UNKNOWN,DOCTOR Admitting Provider: Branden Hurtado Attending physician on admission: Branden Hurtado Condition: Stable
[2024-12-21] MEDS: MULTIVIT/MIN/PREN/FOL AC/IRON TABLET 1 TAB PO (08:06)
[2024-12-21] MEDS: POLYSACCHARIDE IRON COMPLEX 150 MG CAPSULE PO (08:06)
[2024-12-21] MEDS: DOCUSATE SODIUM 100 MG CAPSULE PO (08:07)
[2024-12-21] MEDS: IBUPROFEN 600 MG TABLET PO (08:07)
--- NOTE | 2024-12-21 08:23 | PC.NURSE ---
Addendum entered by Veda Marsh RN 12/21/24 09:19: CLC in room and observed latch, latched optimally to the [left] breast in [cross cradle] position. Education given to the mother of how to visualize the suckling (with good rocking jaw motion) swallows (dropping of the lower jaw) and how to listen for drinking at the breast (the ka sound), per mother she has heard swallows. The was [able] to maintain latch without discomfort to mother. Nipple care reviewed with optimal latch, good positioning and using clean hands when touching her breast. Resources used to facilitate learning were used from the [visual handouts/ tool/mom and baby guide]. Mother voiced understanding of the education shared, to call for assistance if the infant does not latch or if there is discomfort with . Reported to the Primary RN. Original Note: Consulted with mother concerning needs and she shared her ability to independently latch optimally without pain, she is also using her breast pump and supplementing baby after nursing, baby is on 22 calorie formula. Mother will possibly be going to a No Care Bed today if baby needs to stay to gain weight. Mother is feeding appropriately for growth of and understands stimulating infant to eat if needed. has had appropriate feedings in the last 24 hours meets the outcomes for weight, output, blood sugar and jaundice at this time. Reinforced understanding of milk production, transition of milk, signs of adequate intake, transition of stool, prevention/relief of engorgement, plugged ducts, mastitis, responsive watching for feeding cues, the different methods of stimulating to breastfeed 1-3 hours after the start of the last feeding, community resources, and when to call a provider using the resource of the feeding sheet along with the mom and baby guide. Mother voiced understanding of the information shared, is confident to continue effectively her at home, when to call for assistance, denies any additional assistance or education at this time. Reported to the Primary RN.
[2024-12-21 08:50] VITALS: BP 119/77; PULSE 101; RESP 16; TEMP 36.7; O2SAT 99
--- NOTE | 2024-12-21 16:05 | PC.NURSE ---
Pt. declined follow up appointment. Dr. Hurtado notified.
== END 2024-12-21 14:00 | disposition home or self-care (01) | DRG 807 ==
LOC: ANHLDR 19:04 → ANHOB2 12-19 10:28
PROVIDERS: Admitting Provider Obstetrics & Gynecology; Visit Provider Obstetrics & Gynecology
DX: O60.14X0 Preterm labor third trimester with preterm delivery third trimester, not applicable or unspecified (principal); Z37.0 Single live birth; Z3A.36 36 weeks gestation of pregnancy; O69.2XX0 Labor and delivery complicated by other cord entanglement, with compression, not applicable or unspecified
CPT/HCPCS: 36415; 85014; 85018; 85025; 86593; 86703; 86850; 86900; 86901; A9270; G0432; J0690; J2405; J2590; J2795; J7120